=== PATIENT | female | born 1965 | race Caucasian/White ===

== ENCOUNTER 2017-01-10 20:54 | Emergency (ER) | payer OTHER ==
[2017-01-10 21:02] VITALS: BP 135/80; PULSE 111; TEMP 97.9; BMI 34.7
--- NOTE | 2017-01-10 21:10 | PDOC ---
History of Present Illness - General History Source: Patient Exam Limitations: No Limitations - History of Present Illness Initial Comments: 01/10/17 21:38 The patient is a 51 year old female with significant past medical history of asthma, GERD, food allergies, and deafness in the left ear as well as reported history of CVA in 2014 (although neurology note from that admission states that there was no stroke evident on MRI) who presents to the ED with diffuse hives and itchiness prior to arrival. Patient reports she was visit her neighbor who was cooking fish. She states she inhaled fish and subsequently developed diffuse hives and itchiness. She denies eating fish. Patient denies tongue/lip swelling, SOB, or chest tightness. The patient denies fever, chills, cough, diaphoresis, chest pain, and palpitations. The patient denies abdominal pain, nausea, vomiting, and diarrhea. Allergies: epinephrine, pistachio nut, seafood Social History: No alcohol, tobacco, or drug use reported. Past Surgical History: left ear sx x3, hard of hearing/tonsillectomy PCP: None reported <Kalie Morales - Last Filed: 01/10/17 21:38> <Frederic Gallegos - Last Filed: 01/10/17 22:57> - General Chief Complaint: Allergic Reaction Stated Complaint: ALLERGIC REACTION Past History <Kalie Morales - Last Filed: 01/10/17 21:38> - Past Medical History Anemia: Yes Asthma: Yes Cancer: No Cardiac Disorders: Yes CVA: Yes (X2 right sided weakness/numbness) COPD: No CHF: No Dementia: No Diabetes: No GI Disorders: No Disorders: No HTN: No Hypercholesterolemia: Yes Liver Disease: No Suicide Attempt (Hx): No Seizures: No Thyroid Disease: No - Surgical History Abdominal Surgery: No Appendectomy: No Cardiac Surgery: No Cholecystectomy: No Lung Surgery: No Neurologic Surgery: (left ear sx x3, hard of hearing/tonsilectomy) Orthopedic Surgery: No - Immunization History Td Vaccination: Yes Immunization Up to Date: Yes - Psycho/Social/Smoking Cessation Hx Anxiety: No Suicidal Ideation: No Smoking Status: No Smoking History: Never smoked Have you smoked in the past 12 months: No Number of Cigarettes Smoked Daily: 0 Cigars Per Day: 0 Hx Alcohol Use: No Drug/Substance Use Hx: No Substance Use Type: None Hx Substance Use Treatment: No <Frederic Gallegos - Last Filed: 01/10/17 22:57> - Past Medical History Allergies/Adverse Reactions: Allergies Allergy/AdvReac Type Severity Reaction Status Date / Time epinephrine Allergy Verified 01/10/17 20:59 perfume Allergy Verified 01/10/17 20:59 pistachio nut Allergy Verified 01/10/17 20:59 seafood Allergy Uncoded 01/10/17 20:59 Home Medications: Ambulatory Orders NK [No Known Home Medication] 08/12/16 Review of Systems - Review of Systems Able to Perform ROS?: Yes Comments:: 01/10/17 21:38 CONSTITUTIONAL: Absent: fever, no chills, no fatigue EYES: Absent: visual changes ENT: Absent: ear pain, no sore throat CARDIOVASCULAR: Absent: chest pain, no palpitations RESPIRATORY: Absent: cough, no SOB GI: Absent: abdominal pain, no nausea, no vomiting, no constipation, no diarrhea GENITOURINARY: Absent: dysuria, no frequency, no hematuria MUSKULOSKELETAL: Absent: back pain, no arthralgia, no myalgia SKIN: +diffuse hives and itchiness NEURO: Absent: headache <Jose Antonio Moralesta - Last Filed: 01/10/17 21:38> *Physical Exam - Vital Signs Last Vital Signs Temp Pulse Resp BP Pulse Ox 97.9 F 111 H 18 135/80 100 01/10/17 20:59 01/10/17 20:59 01/10/17 20:59 01/10/17 20:59 01/10/17 20:59 - Physical Exam Comments: 01/10/17 21:38 GENERAL: Well-appearing, well-nourished. No apparent distress. HEENT: Normocephalic, atraumatic. PERRL, EOM intact. No airway compromise. No hot potato voice. No tongue swelling. CARDIOVASCULAR: Normal S1, S2. Regular rate and rhythm. PULMONARY: Clear to auscultation bilaterally. No wheezing or stridor. No accessory muscle use. ABDOMEN: Soft, non-distended, non-tender. EXTREMITIES: Normal ROM in all four extremities. No gross deformities. SKIN: Warm, dry. Diffuse hives and erythema throughout the body. NEUROLOGICAL: No focal neurological deficits. <Kalie Morales - Last Filed: 01/10/17 21:38> - Vital Signs Last Vital Signs Temp Pulse Resp BP Pulse Ox 97.9 F 111 H 18 135/80 100 01/10/17 20:59 01/10/17 20:59 01/10/17 20:59 01/10/17 20:59 01/10/17 20:59 <Frederic Gallegos - Last Filed: 01/10/17 22:57> *DC/Admit/Observation/Transfer - Attestations Scribe Attestion: 01/10/17 21:39 Documentation prepared by Kalie Morales, acting as emergency medicine medical director for Frederic Gallegos MD, <Kalie Morales - Last Filed: 01/10/17 21:38> - Discharge Dispostion Admit: No <Frederic Gallegos - Last Filed: 01/10/17 22:57> Diagnosis at time of Disposition: Allergic reaction - Discharge Dispostion Disposition: HOME Condition at time of disposition: Improved
[2017-01-10] MEDS ORDERED: FAMOTIDINE 20 MG/50 ML IVPB 50 ML IVPB ONE ×2 (21:20→21:28)
[2017-01-10] MEDS ORDERED: DEXAMETHASONE SOD PHOSPHATE 10 MG/1 ML VIAL IVPUSH ONE (21:20)
[2017-01-10] MEDS ORDERED: DEXAMETHASONE SOD PHOSPHATE 10 MG/1 ML VIAL ONE (21:28)
[2017-01-10] MEDS ORDERED: ACETAMINOPHEN 325 MG TABLET (FP) PO ONE (22:50)
[2017-01-10] MEDS ORDERED: ACETAMINOPHEN 325 MG TABLET (FP) ONE (22:53)
== END 2017-01-10 23:12 | disposition home or self-care (01) ==
LOC: JER 20:54
PROC: 3E033GC Introduction of Other Therapeutic Substance into Peripheral Vein, Percutaneous Approach (ICD-10-PCS; principal; 2017-01-10)
PROC: 3E0333Z Introduction of Anti-inflammatory into Peripheral Vein, Percutaneous Approach (ICD-10-PCS; 2017-01-10)
PROC: 3E033GC Introduction of Other Therapeutic Substance into Peripheral Vein, Percutaneous Approach (ICD-10-PCS; 2017-01-10)
DX: L50.0 Allergic urticaria (principal); T78.49XA Other allergy, initial encounter; J45.909 Unspecified asthma, uncomplicated; K21.9 Gastro-esophageal reflux disease without esophagitis; Z91.018 Allergy to other foods
CPT/HCPCS: 96365; 96374; 96375; 99282-25

== ENCOUNTER 2017-02-19 21:44 | Emergency (ER) | payer OTHER ==
[2017-02-19 21:53] VITALS: BP 124/71; PULSE 108; TEMP 98; BMI 34.3
--- NOTE | 2017-02-19 23:07 | PDOC ---
History of Present Illness - General Chief Complaint: Pain Stated Complaint: CHEST PAIN/COUGH Time Seen by Provider: 02/19/17 22:00 History Source: Patient Exam Limitations: No Limitations - History of Present Illness Initial Comments: 02/19/17 23:03 51yo Female patient presents to ED c/o left breast pain x 3 days. Patient states while performing self breast check, she felt lumps at 4pm position and 9pm going clockwise. She reports no history of breast CA or family hx of CA. Patient denies nipple or breast discharge. + Cough. Denies all other complaints at this time. PCP--[facility]. Timing/Duration: other (3 days) Severity: moderate Modifying Factors: worse with: cold therapy, eating, immobilization, medication , movement, rest, other Associated Symptoms: denies: denies symptoms, chest pain, cough, diaphoresis, fever/chills, headaches, loss of appetite, malaise, nausea/vomiting, rash, seizure, shortness of breath, syncope, weakness, other Aspirin Received prior to arrival: No: no aspirin today, unknown, 81 mg x 1, 81 mg x 2, 81 mg x 3, 81 mg x 4, 325 mg x 1, provided at home, provided by EMS, provided by ED [facility] Contraindications(Core Measure): No: Allergy, Other, Active Blding w/i 24 hrs., Plavix, Receiving Warfarin Beta Gustavo Contraindications(Core Measure): No: Not Prescribed, Allergy, Bradycardia (HR <60bpm), Advanced Heart Block, Pacemaker, Other Past History - Travel Traveled outside of the country in the last 30 days: No Close contact w/someone who was outside of country & ill: No - Past Medical History Allergies/Adverse Reactions: Allergies Allergy/AdvReac Type Severity Reaction Status Date / Time epinephrine Allergy Verified 02/19/17 21:53 perfume Allergy Verified 02/19/17 21:53 pistachio nut Allergy Verified 02/19/17 21:53 seafood Allergy Uncoded 02/19/17 21:53 Home Medications: Ambulatory Orders Diphenhydramine [Benadryl -] 50 mg NR QID PRN #20 capsule 01/10/17 Famotidine [Pepcid -] 40 mg PO DAILY #7 tablet 01/10/17 Ibuprofen 600 mg PO Q6H PRN #20 tablet 02/20/17 Oxycodone HCl/Acetaminophen [Endocet 5-325 Tablet] 1 each PO Q6H PRN #20 tablet MDD 4 tabs 02/20/17 Anemia: Yes Asthma: Yes Cancer: No Cardiac Disorders: Yes CVA: Yes (X2 right sided weakness/numbness) COPD: No CHF: No Dementia: No Diabetes: No GI Disorders: No Disorders: No HTN: No Hypercholesterolemia: Yes Liver Disease: No Suicide Attempt (Hx): No Seizures: No Thyroid Disease: No - Surgical History Abdominal Surgery: No Appendectomy: No Cardiac Surgery: No Cholecystectomy: No Lung Surgery: No Neurologic Surgery: (left ear sx x3, hard of hearing/tonsilectomy) Orthopedic Surgery: No - Immunization History Td Vaccination: Yes Immunization Up to Date: Yes - Psycho/Social/Smoking Cessation Hx Anxiety: No Suicidal Ideation: No Smoking Status: No Smoking History: Never smoked Have you smoked in the past 12 months: No Number of Cigarettes Smoked Daily: 0 Cigars Per Day: 0 Hx Alcohol Use: No Drug/Substance Use Hx: No Substance Use Type: None Hx Substance Use Treatment: No Review of Systems - Review of Systems Able to Perform ROS?: Yes Is the patient limited [place] proficient: No Constitutional: No: Chills, Fever, Malaise Respiratory: Yes: Cough. No: Orthopnea, Shortness of Breath, Stridor, Wheezing Cardiac (ROS): Yes: Chest Pain. No: Edema, Lightheadedness, Palpitations, Syncope, Chest Tightness ABD/GI: No: Constipated, Diarrhea, Nausea, Poor Appetite, Poor Fluid Intake, Vomiting : No: Dysuria, Discharge, Flank Pain, Hematuria, Urgency Musculoskeletal: No: Back Pain, Muscle Weakness, Neck Pain Integumentary: Yes: Lumps, Other (Lt Breast with lumps x 2). No: Dryness, Erythema, Lesions, Pruritus, Rash, Sweating Neurological: No: Headache, Seizure, Dizziness All Other Systems: Reviewed and Negative *Physical Exam - Vital Signs Last Vital Signs Temp Pulse Resp BP Pulse Ox 98 F 108 H 20 124/71 99 02/19/17 21:50 02/19/17 21:50 02/19/17 21:50 02/19/17 21:50 02/19/17 21:50 - Physical Exam General Appearance: Yes: Nourished, Appropriately Dressed, Mild Distress. No: Apparent Distress, Moderate Distress, Severe Distress Neck: positive: Trachea midline, Supple. negative: Stridor, Lymphadenopathy (R) , Lymphadenopathy (L) Respiratory/Chest: positive: Lungs Clear, Normal Breath Sounds. negative: Respiratory Distress, Accessory Muscle Use, Labored Respiration, Rapid RR Cardiovascular: positive: Regular Rhythm, Regular Rate. negative: Edema, JVD, Murmur Musculoskeletal: positive: Normal Inspection. negative: CVA Tenderness, Vertebral Tenderness Extremity: positive: Normal Capillary Refill, Normal Inspection, Normal Range of Motion. negative: Pedal Edema, Swelling, Calf Tenderness, Erythema, Inflammation Integumentary: positive: Normal Color, Dry, Warm, Other (2 Lumps palpated in left breast one at 4'o clock & 9'o clock position. No inflammation, erythema, nipple discharge or drainage noted.) Neurologic: positive: finance controller II-XII NML intact, Fully Oriented, Alert, Normal Mood/ Affect, Normal Response, Motor Strength 5/5 *DC/Admit/Observation/Transfer Diagnosis at time of Disposition: Breast pain, left - Discharge Dispostion Disposition: HOME Condition at time of disposition: Stable Admit: No - Prescriptions Prescriptions: Oxycodone HCl/Acetaminophen [Endocet 5-325 Tablet] 1 each PO Q6H PRN #20 tablet MDD 4 tabs PRN Reason: Severe Pain Ibuprofen 600 mg PO Q6H PRN #20 tablet PRN Reason: Mild Pain - Patient Instructions Printed Discharge Instructions: DI for Breast Pain (Mastalgia) Additional Instructions: FOLLOW UP WITH YOUR PRIMARY CARE PROVIDER THIS WEEK. CALL TO SCHEDULE APPOINTMENT. YOU NEED TO HAVE AN ULTRASOUND OF YOUR BREAST COMPLETED SOON POSSIBLE. RETURN IF ANY CONCERNS FOR FURTHER EVALUATION. Print Language: LATVIAN
[2017-02-20] MEDS ORDERED: OXYCODONE/APAP 5/325MG COMBO TABLET PO ONE (00:20)
[2017-02-20] MEDS ORDERED: IBUPROFEN 600 MG TABLET (FP) PO ONE ×2 (00:20→00:29)
[2017-02-20] MEDS ORDERED: OXYCODONE/APAP 5/325MG COMBO TABLET ONE (00:28)
== END 2017-02-20 00:40 | disposition home or self-care (01) ==
LOC: JER 21:44
DX: N64.4 Mastodynia (principal); J45.909 Unspecified asthma, uncomplicated; I51.9 Heart disease, unspecified; E78.00 Pure hypercholesterolemia, unspecified; I69.398 Other sequelae of cerebral infarction
CPT/HCPCS: 71020-TC; 99281-25

== ENCOUNTER 2017-05-16 07:18 | Emergency (ER) | payer OTHER ==
[2017-05-16] MEDS ORDERED: RANITIDINE HCL 150 MG TABLET (FP) ONE (07:34)
[2017-05-16] MEDS ORDERED: methylPREDNISolone NA SUCC 125 MG/2 ML VIAL ONE (07:34)
[2017-05-16] MEDS ORDERED: methylPREDNISolone NA SUCC 125 MG/2 ML VIAL IVPB ONE (07:35)
[2017-05-16] MEDS ORDERED: RANITIDINE HCL 150 MG TABLET (FP) PO ONE (07:36)
[2017-05-16 07:56] VITALS: TEMP 98.4; BMI 35.3
[2017-05-16] MEDS ORDERED: MAG HYDROX/AL HYDROX/SIMETH 30 ML UNIT-DOSE CUP PO ONE (08:28)
--- NOTE | 2017-05-16 08:28 | PDOC ---
History of Present Illness - General Chief Complaint: Allergic Reaction Stated Complaint: ALLERGIC REACTION Time Seen by Provider: 05/16/17 07:30 History Source: Patient - History of Present Illness Timing/Duration: reports: just prior to arrival Location: reports: generalized Respiratory Risk Factors: reports: soaps Past History - Past Medical History Allergies/Adverse Reactions: Allergies Allergy/AdvReac Type Severity Reaction Status Date / Time epinephrine Allergy Verified 05/16/17 07:38 perfume Allergy Verified 05/16/17 07:38 pistachio nut Allergy Verified 05/16/17 07:38 seafood Allergy Uncoded 05/16/17 07:38 Home Medications: Ambulatory Orders Diphenhydramine [Benadryl -] 25 mg PO DAILY PRN 02/20/17 Prednisone 20 mg PO DAILY 02/20/17 Albuterol Sulfate Inhaler - [Ventolin Hfa Inhaler -] 1 - 2 inh PO Q4H PRN Diphenhydramine HCl [Benadryl -] 25 mg PO Q6H #28 capsule 05/16/17 Famotidine [Pepcid] 20 mg PO DAILY #7 tablet 05/16/17 Prednisone [Deltasone -] 40 mg PO DAILY #8 tablet 05/16/17 Anemia: Yes Asthma: Yes Cancer: No Cardiac Disorders: Yes CVA: Yes (X2 right sided weakness/numbness) COPD: No CHF: No Dementia: No Diabetes: No GI Disorders: No Disorders: No HTN: No Hypercholesterolemia: Yes Liver Disease: No Suicide Attempt (Hx): No Seizures: No Thyroid Disease: No - Surgical History Abdominal Surgery: No Appendectomy: No Cardiac Surgery: No Cholecystectomy: No Lung Surgery: No Neurologic Surgery: (left ear sx x3, hard of hearing/tonsilectomy) Orthopedic Surgery: No - Immunization History Td Vaccination: Yes Immunization Up to Date: Yes - Psycho/Social/Smoking Cessation Hx Anxiety: No Suicidal Ideation: No Smoking Status: No Smoking History: Never smoked Have you smoked in the past 12 months: No Number of Cigarettes Smoked Daily: 0 Cigars Per Day: 0 Information on smoking cessation initiated: No Hx Alcohol Use: No Drug/Substance Use Hx: No Substance Use Type: None Hx Substance Use Treatment: No Review of Systems - Review of Systems Constitutional: No: Fever Respiratory: Yes: Shortness of Breath. No: Stridor Cardiac (ROS): No: Chest Pain Integumentary: Yes: Pruritus, Rash Neurological: No: Dizziness *Physical Exam - Vital Signs Last Vital Signs Temp Pulse Resp BP Pulse Ox 98.4 F 121 H 18 129/63 99 05/16/17 07:33 05/16/17 07:33 05/16/17 07:33 05/16/17 07:33 05/16/17 07:33 - Physical Exam General Appearance: Yes: Appropriately Dressed, Mild Distress HEENT: positive: Normal Voice, Other (no swelling to tongue or orpharynx) Neck: positive: Supple. negative: Stridor Respiratory/Chest: positive: Lungs Clear, Normal Breath Sounds. negative: Respiratory Distress Cardiovascular: positive: S1, S2, Tachycardia Integumentary: positive: Dry, Warm, Rash (erythematous, scaly maculopapular rash to face/trunk and extremities) Neurologic: positive: Fully Oriented, Alert, Normal Mood/Affect Heart Score/ECG Review - ECG Intrepretation Comment:: 05/16/17 09:04 Sinus tachycardia to 102 BPM 05/16/17 09:05 ED Treatment Course - Medications Given in the ED: ED Medications Discontinued Medications Generic Name Dose Route Start Last Admin Trade Name Freq PRN Reason Stop Dose Admin Diphenhydramine HCl 50 mg 05/16/17 07:35 05/16/17 07:45 Benadryl Injection - IVPUSH 05/16/17 07:36 50 mg ONCE ONE Administration Methylprednisolone Sodium Succinate 125 mg 05/16/17 07:35 05/16/17 07:45 Solu-Medrol - IVPB 05/16/17 07:36 125 mg ONCE ONE Administration Ranitidine HCl 150 mg 05/16/17 07:36 05/16/17 07:45 Zantac - PO 05/16/17 07:37 150 mg ONCE ONE Administration Medical Decision Making - Medical Decision Making 05/16/17 08:21 51 yo F, h/o asthma, multiple allergies (meds, food, others), no h/o anaphylaxis , here with sudden onset diffuse pruritic rash with itching to throat and possible shortness of breath that started almost immediately after using her sister's Aveeno soap to bathe this am as per patient. Reports that she has never used that soap in the past. No voice changes, tongue swelling, stridor or wheezing see exam Allergic rxn 2/2 soap Mostly limited to skin but some throat itching Tachy at triage w/ clear chest/lungs -Benadryl/steroids/H2 katy -reassess after period of obs 05/16/17 08:46 Pt c/o "heartburn" at this time. Remains tachy. Will get EKG and manage sxs 05/16/17 09:03 Pt now wheezing on re-eval. Sating 98% on RA. Nebs in progress 05/16/17 09:04 05/16/17 10:05 Pt reports feeling significantly better at this time and appears more comfortable w/ clear chest/lungs. Will continue to obs 05/16/17 11:41 At this time. Pt well appearing w/ almost resolution of rash. Itching has since sig improved and chest/lungs remains clear. Tachy to 106 w/ 96 % sats on recent vitals. Will discharge w/ appropriate meds (of note, pt allergic to epipen per pt) and strict return precautions. Pt instructed to refrain from using aveeno in the future 05/16/17 11:45 05/16/17 11:46 05/16/17 11:47 *DC/Admit/Observation/Transfer Diagnosis at time of Disposition: Acute allergic reaction Qualifiers: Encounter type: initial encounter Qualified Code(s): T78.40XA - Allergy, unspecified, initial encounter - Discharge Dispostion Disposition: HOME Condition at time of disposition: Improved - Prescriptions Prescriptions: Diphenhydramine HCl [Benadryl -] 25 mg PO Q6H #28 capsule Prednisone [Deltasone -] 40 mg PO DAILY #8 tablet Famotidine [Pepcid] 20 mg PO DAILY #7 tablet - Patient Instructions Printed Discharge Instructions: DI for General Allergic Reactions Additional Instructions: Refrain from using aveeno products in the future Taker medications as directed Please return to ED for any worsening of your symptoms Follow uo with PMD otherwise
[2017-05-16] MEDS ORDERED: MAG HYDROX/AL HYDROX/SIMETH 30 ML UNIT-DOSE CUP ONE (08:29)
[2017-05-16] MEDS ORDERED: LORazepam 0.5 MG TABLET ONE (08:59)
[2017-05-16] MEDS ORDERED: ALBUTEROL SO4 0.083% IH SOL 2.5 MG/3 ML VIAL.NEB. NEB ONE (09:01)
[2017-05-16] MEDS ORDERED: ALBUTEROL SO4 2.5/IPRATROPIUM 0.5 INH SOL 3 ML VIAL.NEB. NEB ONE (09:04)
[2017-05-16] MEDS: ALBUTEROL SO4 2.5/IPRATROPIUM 0.5 INH SOL 3 ML VIAL.NEB. NEB SCH ×3 (09:07→10:07)
[2017-05-16] MEDS ORDERED: LORazepam 1 MG TABLET PO ONE (09:08)
[2017-05-16 09:23] VITALS: BP 124/74
--- NOTE | 2017-05-16 10:21 | EKG ---
Test Reason : Blood Pressure : / mmHG Vent. Rate : 102 BPM Atrial Rate : 102 BPM P-R Int : 142 ms QRS Dur : 072 ms QT Int : 322 ms P-R-T Axes : 053 031 026 degrees QTc Int : 419 ms SINUS TACHYCARDIA OTHERWISE NORMAL ECG WHEN COMPARED WITH ECG OF 17-MAY-2016 03:54, NO SIGNIFICANT CHANGE WAS FOUND Confirmed by BISI BELLO MD ([id number]) on 05/16/2017 10:21:20 AM Referred By: Confirmed By:BISI BELLO MD
[2017-05-16 11:48] VITALS: PULSE 108
== END 2017-05-16 11:51 | disposition home or self-care (01) ==
LOC: JER 07:18
PROC: 3E0F7GC Introduction of Other Therapeutic Substance into Respiratory Tract, Via Natural or Artificial Opening (ICD-10-PCS; principal; 2017-05-16)
PROC: 3E0333Z Introduction of Anti-inflammatory into Peripheral Vein, Percutaneous Approach (ICD-10-PCS; 2017-05-16)
PROC: 3E033GC Introduction of Other Therapeutic Substance into Peripheral Vein, Percutaneous Approach (ICD-10-PCS; 2017-05-16)
DX: T55.0X1A Toxic effect of soaps, accidental (unintentional), initial encounter (principal); L23.5 Allergic contact dermatitis due to other chemical products; Y92.038 Other place in apartment as the place of occurrence of the external cause
CPT/HCPCS: 93005; 93010; 94640; 96374; 96375; 99282-25

== ENCOUNTER 2017-05-16 17:35 | Emergency (ER) | payer OTHER ==
[2017-05-16 17:40] VITALS: TEMP 98.2; BMI 34.7
--- NOTE | 2017-05-16 18:16 | PDOC ---
History of Present Illness - History of Present Illness Beta Gustavo Contraindications (Core Measure): No: Not Prescribed, Allergy, Bradycardia (HR <60bpm), Advanced Heart Block, Pacemaker, Other - General Chief Complaint: Allergic Reaction Stated Complaint: SHORTNESS OF BREATH Time Seen by Provider: 05/16/17 17:54 - History of Present Illness Initial Comments: 05/16/17 18:43 The patient is a 51 year old female, with a significant past medical history of asthma, and multiple food/drug allergies, who presents to the emergency department with an allergic reaction following Dina soap use. Patient returns to the ED following discharge this AM for allergic reaction. She reports widespread pruitic, erythematous rash over trunk, chest, and BL lower and upper extremities this morning after taking a shower. Also complains of difficulty breathing, flushing of the face, and swollen tongue. Pt. recieved solumedrol, benadryl, famotidine, albuterol, and ativan this AM during inital ED course. She was discharged home with benadryl, oral prednisone, and H2 gustavo with instructions to return if symptoms recurred, or if she had difficulty breathing. She states that 2-3 hours ago she developed recurrent chest tightness , numbness/tingling in upper right and lower left extremity, rapid breathing, and SOB at rest. She does not have an wrapper caser and states that she is allergic to epinephrine after experiencing "paralysis and sensation of head exploding" following epinephrine administration. The patient denies headache, dizziness, fever, chills, nausea, vomit, diarrhea and constipation. Denies dysuria, frequency, urgency and hematuria. 05/16/17 18:55 (Mata Castillo) Past History - Past Medical History Anemia: Yes Asthma: Yes Cancer: No Cardiac Disorders: Yes CVA: Yes (X2 right sided weakness/numbness) COPD: No CHF: No Dementia: No Diabetes: No GI Disorders: No Disorders: No HTN: No Hypercholesterolemia: Yes Liver Disease: No Suicide Attempt (Hx): No Seizures: No Thyroid Disease: No - Surgical History Abdominal Surgery: No Appendectomy: No Cardiac Surgery: No Cholecystectomy: No Lung Surgery: No Neurologic Surgery: (left ear sx x3, hard of hearing/tonsilectomy) Orthopedic Surgery: No - Immunization History Td Vaccination: Yes Immunization Up to Date: Yes - Psycho/Social/Smoking Cessation Hx Anxiety: No Suicidal Ideation: No Smoking Status: No Smoking History: Never smoked Have you smoked in the past 12 months: No Number of Cigarettes Smoked Daily: 0 Cigars Per Day: 0 Information on smoking cessation initiated: No Hx Alcohol Use: No Drug/Substance Use Hx: No Substance Use Type: None Hx Substance Use Treatment: No - Past Medical History Allergies/Adverse Reactions: Allergies Allergy/AdvReac Type Severity Reaction Status Date / Time epinephrine Allergy Verified 05/16/17 17:36 perfume Allergy Verified 05/16/17 17:36 pistachio nut Allergy Verified 05/16/17 17:36 seafood Allergy Uncoded 05/16/17 17:36 Home Medications: Ambulatory Orders Diphenhydramine [Benadryl -] 25 mg PO DAILY PRN 02/20/17 Prednisone 20 mg PO DAILY 02/20/17 Albuterol Sulfate Inhaler - [Ventolin Hfa Inhaler -] 1 - 2 inh PO Q4H PRN Diphenhydramine HCl [Benadryl -] 25 mg PO Q6H #28 capsule 05/16/17 Famotidine [Pepcid] 20 mg PO DAILY #7 tablet 05/16/17 Prednisone [Deltasone -] 40 mg PO DAILY #8 tablet 05/16/17 Cardiac Specific PMH - Complaint Specific PMHX Pacemaker: No Review of Systems - Review of Systems Comments:: 05/16/17 18:56 GENERAL/CONSTITUTIONAL: No fever or chills. No weakness. HEAD, EYES, EARS, NOSE AND THROAT: No change in vision. No ear pain or discharge. No sore throat.No eye involvement of rash. CARDIOVASCULAR: No chest pain or shortness of breath RESPIRATORY: +SOB, No cough, wheezing, or hemoptysis. GASTROINTESTINAL: No nausea, vomiting, diarrhea or constipation. GENITOURINARY: No dysuria, frequency, or change in urination. MUSCULOSKELETAL: No joint or muscle swelling or pain. No neck or back pain. SKIN: +widespread rash NEUROLOGIC:+ numbness/tingling in UE/LE. No headache, vertigo, loss of consciousness, or change in strength/sensation. ENDOCRINE: No increased thirst. No abnormal weight change HEMATOLOGIC/LYMPHATIC: No anemia, easy bleeding, or history of blood clots. ALLERGIC/IMMUNOLOGIC: No hives or skin allergy. (Mata Castillo) *Physical Exam - Vital Signs Last Vital Signs Temp Pulse Resp BP Pulse Ox 98.2 F 110 H 20 120/59 98 05/16/17 17:37 05/16/17 20:37 05/16/17 20:37 05/16/17 20:37 05/16/17 17:37 - Physical Exam Comments: 05/16/17 18:58 GENERAL: Awake, alert, and fully oriented, in no acute distress HEAD: No signs of trauma, normocephalic, atraumatic EYES: PERRLA, EOMI, sclera anicteric, conjunctiva clear ENT: Auricles normal inspection, hearing grossly normal, nares patent, oropharynx clear without. exudates. Moist mucosa with absent swelling, erythema of buccal mucosa or tongue. NECK: Normal ROM, supple, no lymphadenopathy, JVD, or masses LUNGS: No distress, speaks full sentences, clear to auscultation bilaterally. Absent stridor, or wheezing. HEART: Regular rate and rhythm, normal S1 and S2, no murmurs, rubs or gallops, peripheral pulses normal and equal bilaterally. ABDOMEN: Soft, nontender, normoactive bowel sounds. No guarding, no rebound. No masses EXTREMITIES: Normal inspection, Normal range of motion, no edema. No clubbing or cyanosis. NEUROLOGICAL: Cranial nerves II through XII grossly intact. Normal speech, normal gait, no focal sensorimotor deficits SKIN: + widespread erythematous, macular, blanching rash over distal extremities , trunk, chest, and neck. Warm, Dry, normal turgor. (Mata Castillo) - ADDITIONAL ORDERS Additional order review: Laboratory Results 05/16/17 05/16/17 18:56 18:56 Creatine Kinase 332 H D CK-MB (CK-2) 6.836 H Troponin I < 0.02 < 0.02 - Medications Given in the ED: ED Medications Discontinued Medications Generic Name Dose Route Start Last Admin Trade Name Freq PRN Reason Stop Dose Admin Al Hydroxide/Mg Hydroxide 30 ml 05/16/17 18:37 05/16/17 18:55 Mylanta Suspension - PO 05/16/17 18:38 Not Given ONCE ONE Al Hydroxide/Mg Hydroxide 30 ml 05/16/17 18:38 05/16/17 18:54 Mylanta Oral Suspension - PO 05/16/17 18:39 30 ml ONCE ONE Administration Medical Decision Making - Medical Decision Making Pt. presents to ED with diffuse maculopapular rash following exposure to Dina soap and initial ED visit this AM. She was advised to return to ED if experiencing SOB, chest tightness.Denies any oral/facial involvement of allergic reaction or difficulty swallowing. Pt. was D/C'd this AM with home regimen of diphehydramine, prednisone, and famotidine with minimal resolution of rash. During intial AM hospital stay she reports Ativan was effective at alleviating tachycardia, tachypnea, and chest pressure. 05/16/17 19:00 05/16/17 19:05 (Mata Castillo) *DC/Admit/Observation/Transfer Diagnosis at time of Disposition: Epigastric discomfort - Discharge Dispostion Disposition: HOME Condition at time of disposition: Stable - Referrals Referrals: [facility] [Provider Group] - Patient Instructions Printed Discharge Instructions: DI for General Allergic Reactions Additional Instructions: You were evaluated in the Emergency Department on 16 May 2017 for an allergic reaction to your use of [place] soap. At the time of discharge your symptoms were resolved. Please return to the Emergency Department
[2017-05-16] MEDS ORDERED: MAG HYDROX/AL HYDROX/SIMETH 355 ML ORAL.SUSP PO ONE (18:37)
[2017-05-16] MEDS ORDERED: MAG HYDROX/AL HYDROX/SIMETH 30 ML UNIT-DOSE CUP PO ONE (18:38)
[2017-05-16] MEDS ORDERED: MAG HYDROX/AL HYDROX/SIMETH 30 ML UNIT-DOSE CUP ONE (18:44)
[2017-05-16 19:27] LABS: TROPONIN I < 0.02 ng/ml (0.00-0.05)
--- NOTE | 2017-05-16 19:37 | PDOC ---
*Physical Exam - Vital Signs Last Vital Signs Temp Pulse Resp BP Pulse Ox 98.2 F 126 H 18 119/87 98 05/16/17 17:37 05/16/17 17:37 05/16/17 17:37 05/16/17 17:37 05/16/17 17:37 ED Treatment Course - Medications Given in the ED: ED Medications Discontinued Medications Generic Name Dose Route Start Last Admin Trade Name Dara PRN Reason Stop Dose Admin Al Hydroxide/Mg Hydroxide 30 ml 05/16/17 18:37 05/16/17 18:55 Mylanta Suspension - PO 05/16/17 18:38 Not Given ONCE ONE Al Hydroxide/Mg Hydroxide 30 ml 05/16/17 18:38 05/16/17 18:54 Mylanta Oral Suspension - PO 05/16/17 18:39 30 ml ONCE ONE Administration *DC/Admit/Observation/Transfer Diagnosis at time of Disposition: Epigastric discomfort Allergic disorder Qualifiers: Encounter type: subsequent encounter Qualified Code(s): T78.40XD - Allergy, unspecified, subsequent encounter - Discharge Dispostion Disposition: HOME Condition at time of disposition: Improved Admit: No - Referrals Referrals: [facility] [Provider Group] - Patient Instructions Printed Discharge Instructions: DI for General Allergic Reactions Additional Instructions: You were evaluated in the Emergency Department on 16 May 2017 for an allergic reaction to your use of Dina soap. At the time of discharge your symptoms were resolved. Please return to the Emergency Department if you feel any shortness of breath, lightheadedness, chest pain or fainting. 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
[2017-05-16 20:38] VITALS: BP 120/59; PULSE 110
--- NOTE | 2017-05-17 14:11 | EKG ---
Test Reason : Blood Pressure : / mmHG Vent. Rate : 118 BPM Atrial Rate : 118 BPM P-R Int : 146 ms QRS Dur : 072 ms QT Int : 322 ms P-R-T Axes : 051 045 045 degrees QTc Int : 451 ms SINUS TACHYCARDIA INTRA ATRIAL CONDCTION ABNORMALITY WHEN COMPARED WITH ECG OF 16-MAY-2017 08:54, NO SIGNIFICANT CHANGE WAS FOUND Confirmed by MARIO SALAS MD ([id number]) on 05/17/2017 2:10:53 PM Referred By: Confirmed By:MARIO SALAS MD
== END 2017-05-16 20:54 | disposition home or self-care (01) ==
LOC: JER 17:35
DX: T55.0X1A Toxic effect of soaps, accidental (unintentional), initial encounter (principal); L23.5 Allergic contact dermatitis due to other chemical products; Y92.89 Other specified places as the place of occurrence of the external cause
CPT/HCPCS: 36415; 82550; 82553; 84484; 93005; 93010; 99283-25

== ENCOUNTER 2017-07-06 16:18 | Emergency (ER) | payer OTHER ==
[2017-07-06 16:23] VITALS: BMI 33.3
[2017-07-06] MEDS ORDERED: methylPREDNISolone NA SUCC 125 MG/2 ML VIAL IVPB ONE (16:39)
[2017-07-06] MEDS ORDERED: methylPREDNISolone NA SUCC 125 MG/2 ML VIAL ONE (16:41)
[2017-07-06] MEDS ORDERED: FAMOTIDINE 20 MG/50 ML IVPB 50 ML IVPB ONE ×2 (16:44→16:46)
--- NOTE | 2017-07-06 17:12 | PDOC ---
History of Present Illness - General Chief Complaint: Rash Stated Complaint: ALLERGIC REACTION Time Seen by Provider: 07/06/17 16:35 History Source: Patient Exam Limitations: No Limitations - History of Present Illness Initial Comments: 07/06/17 16:59 Patient is a 51-year-old female, patient with history of asthma, multiple food and drug allergies including epinephrine. Patient states she was cleaning her room, only dusting and started to have generalized itching receive patient with a rash head to toe, sandpaperlike. Patient denies any respiratory difficulty. Denies swollen tongue. Patient denies any dysphagia. The patient denies headache, dizziness, fever, chills, nausea, vomit. Timing/Duration: 1/2 hour Severity: severe Associated Symptoms: reports: rash Past History - Past Medical History Allergies/Adverse Reactions: Allergies Allergy/AdvReac Type Severity Reaction Status Date / Time epinephrine Allergy Verified 07/06/17 16:24 perfume Allergy Verified 07/06/17 16:24 pistachio nut Allergy Verified 07/06/17 16:24 seafood Allergy Uncoded 07/06/17 16:24 Home Medications: Ambulatory Orders Diphenhydramine [Benadryl -] 25 mg PO DAILY PRN 02/20/17 Albuterol Sulfate Inhaler - [Ventolin Hfa Inhaler -] 1 - 2 inh PO Q4H PRN Anemia: Yes Asthma: Yes Cancer: No Cardiac Disorders: Yes CVA: Yes (X2 right sided weakness/numbness) COPD: No CHF: No Dementia: No Diabetes: No GI Disorders: No Disorders: No HTN: No Hypercholesterolemia: Yes Liver Disease: No Suicide Attempt (Hx): No Seizures: No Thyroid Disease: No - Surgical History Abdominal Surgery: No Appendectomy: No Cardiac Surgery: No Cholecystectomy: No Lung Surgery: No Neurologic Surgery: (left ear sx x3, hard of hearing/tonsilectomy) Orthopedic Surgery: No - Immunization History Td Vaccination: Yes Immunization Up to Date: Yes - Psycho/Social/Smoking Cessation Hx Anxiety: No Suicidal Ideation: No Smoking Status: No Smoking History: Never smoked Have you smoked in the past 12 months: No Number of Cigarettes Smoked Daily: 0 Cigars Per Day: 0 Hx Alcohol Use: No Drug/Substance Use Hx: No Substance Use Type: None Hx Substance Use Treatment: No Review of Systems - Review of Systems Constitutional: No: Symptoms Reported HEENTM: No: Symptoms Reported Respiratory: No: Cough, Orthopnea, Shortness of Breath, SOB with Exertion, SOB at Rest, Stridor, Wheezing, Productive cough, Hemoptysis Cardiac (ROS): No: Symptoms Reported, Chest Pain, Edema, Irregular Heart Rate, Lightheadedness, Palpitations, Chest Tightness ABD/GI: No: Symptoms Reported : No: Symptoms Reported Musculoskeletal: No: Symptoms Reported Integumentary: No: Symptoms Reported Neurological: No: Symptoms reported Hematologic/Lymphatic: No: Symptoms Reported All Other Systems: Reviewed and Negative *Physical Exam - Vital Signs Last Vital Signs Temp Pulse Resp BP Pulse Ox 98.2 F 118 H 20 141/82 97 07/06/17 16:20 07/06/17 16:20 07/06/17 16:20 07/06/17 16:20 07/06/17 16:20 - Physical Exam General Appearance: Yes: Appropriately Dressed. No: Apparent Distress HEENT: positive: HALEY, Normal ENT Inspection, Normal Voice, Symmetrical, TMs Normal, Pharynx Normal. negative: Rhinorrhea, Sinus Tenderness, Orbits, TM Bulging, TM Dull, TM Erythema, Excessive drooling, Thrush Neck: positive: Trachea midline. negative: Tender, Lymphadenopathy (R), Lymphadenopathy (L), Rigidity, Tender lateral, Tender midline Respiratory/Chest: positive: Lungs Clear, Normal Breath Sounds. negative: Respiratory Distress, Accessory Muscle Use, Labored Respiration, Rapid RR, Decreased Breath Sounds, Crackles, Rales, Rhonchi, Stridor, Wheezing Cardiovascular: positive: Regular Rhythm, Regular Rate Gastrointestinal/Abdominal: positive: Normal Bowel Sounds, Soft. negative: Tender Lymphatic: negative: Adenopathy Integumentary: positive: Rash. negative: Erythema, Hives, Swelling, Ecchymosis , Bruising Neurologic: positive: Normal Response, Motor Strength 5/5 ED Treatment Course - Medications Given in the ED: ED Medications Discontinued Medications Generic Name Dose Route Start Last Admin Trade Name Freq PRN Reason Stop Dose Admin Diphenhydramine HCl 50 mg 07/06/17 16:44 07/06/17 16:53 Benadryl Injection - IVPB 07/06/17 16:45 50 mg ONCE ONE Administration Methylprednisolone Sodium Succinate 125 mg 07/06/17 16:39 07/06/17 16:44 Solu-Medrol - IVPB 07/06/17 16:40 125 mg ONCE ONE Administration Medical Decision Making - Medical Decision Making 07/06/17 17:14 A/P: Patient here for allergic reaction, mostly limited to skin. There is no airway compromise. Immediately upon arrival #20 placed to the left before meals , Solu-Medrol 125, Pepcid 20 and Benadryl 50 mg IV given, will reevaluate. Patient is monitored for change in airway status. 07/06/17 18:04 Patient states that she has decreased pruritus, rash is significantly decreased , will continue to monitor 07/06/17 19:24 Patient generalized rash significantly improved however patient still with pruritus. Will give Claritin 10 mg by mouth and monitor. Patient lungs clear, O2 sats 100%, no stridor or wheezing. I am signing this patient out to my colleague: KAYLYNN Lee In brief, this patient is being seen in the ED for a chief complaint of: Allergic reaction I have completed the initial assessment interview note and have ordered: Solumedrol, Pepcid, Benadryl, Claritin Plan for disposition is as follows: We'll monitor, DC pending decreased pruritus
[2017-07-06] MEDS ORDERED: LORATADINE 10 MG TABLET PO ONE (19:23)
[2017-07-06] MEDS ORDERED: LORATADINE 10 MG TABLET ONE (19:29)
--- NOTE | 2017-07-06 19:59 | PDOC ---
*Physical Exam - Vital Signs Last Vital Signs Temp Pulse Resp BP Pulse Ox 98.2 F 118 H 20 141/82 97 07/06/17 16:20 07/06/17 16:20 07/06/17 16:20 07/06/17 16:20 07/06/17 16:20 - Physical Exam General Appearance: Yes: Appropriately Dressed. No: Apparent Distress HEENT: positive: Normal Voice Neck: positive: Supple Respiratory/Chest: positive: Lungs Clear, Normal Breath Sounds. negative: Respiratory Distress, Wheezing Cardiovascular: positive: Regular Rate, S1, S2 Gastrointestinal/Abdominal: positive: Soft. negative: Tender Integumentary: positive: Dry, Warm, Hives (to face, neck, trunk and extremities) Neurologic: positive: Fully Oriented, Alert, Normal Mood/Affect ED Treatment Course - Medications Given in the ED: ED Medications Discontinued Medications Generic Name Dose Route Start Last Admin Trade Name Freq PRN Reason Stop Dose Admin Diphenhydramine HCl 50 mg 07/06/17 16:44 07/06/17 16:53 Benadryl Injection - IVPB 07/06/17 16:45 50 mg ONCE ONE Administration Famotidine/Sodium Chloride 50 mls @ 100 mls/hr 07/06/17 16:44 07/06/17 17:12 Pepcid 20 Mg Premixed Ivpb - IVPB 07/06/17 17:13 100 mls/hr ONCE ONE Administration Loratadine 10 mg 07/06/17 19:23 07/06/17 19:32 Claritin - PO 07/06/17 19:24 10 mg ONCE ONE Administration Methylprednisolone Sodium Succinate 125 mg 07/06/17 16:39 07/06/17 16:44 Solu-Medrol - IVPB 07/06/17 16:40 125 mg ONCE ONE Administration Medical Decision Making - Medical Decision Making 07/06/17 19:59 07/06/17 19:59 Pt signed out to me by [employer]IST Andolino 51 yo F, h/o GERD, asthma, multiple food and drug allergies w/ numerous ED visits for rash/allergic reaction w/ intermittent admissions, allergic to epi, here w/ diffuse pruritic rash while cleaning her room today. So far has received benadryl, pepcid and soludmedrol which improved symptoms moderately but continues to have intense itching. No angioedema/airway compromise. Recently given claritin. Plan is to reassess in 1-2 hrs and if still symptomatic , will consider admitting to obs 07/06/17 20:01 07/06/17 20:11 Pt reports feeling significantly better ~30 minutes after receiving claritin and now wants to be discharged. Rpt vitals stable. Will dc w/ meds and strict return precautions 07/06/17 20:17 *DC/Admit/Observation/Transfer Diagnosis at time of Disposition: Acute allergic reaction Qualifiers: Encounter type: initial encounter Qualified Code(s): T78.40XA - Allergy, unspecified, initial encounter - Discharge Dispostion Disposition: HOME Condition at time of disposition: Improved - Prescriptions Prescriptions: Diphenhydramine HCl [Benadryl -] 25 mg PO Q6H #28 capsule Loratadine [Claritin] 10 mg PO DAILY #7 tablet Prednisone [Deltasone -] 40 mg PO DAILY #8 tablet Famotidine [Pepcid] 20 mg PO DAILY #7 tablet - Patient Instructions Printed Discharge Instructions: DI for General Allergic Reactions Additional Instructions: Take prednisone and pepcid daily starting tomorrow Take benadryl every 6 hrs as needed , but if you find that benadryl does not help relieve symptoms, you can take Claritin daily as needed Please return to ED immediately if symptoms worsen at home
[2017-07-06 20:23] VITALS: BP 125/75; PULSE 91; TEMP 98.6
== END 2017-07-06 20:23 | disposition home or self-care (01) ==
LOC: JERFT 16:18 → JER 16:18 → JERFT 20:23
PROC: 3E033GC Introduction of Other Therapeutic Substance into Peripheral Vein, Percutaneous Approach (ICD-10-PCS; principal; 2017-07-06)
PROC: 3E033NZ Introduction of Analgesics, Hypnotics, Sedatives into Peripheral Vein, Percutaneous Approach (ICD-10-PCS; 2017-07-06)
PROC: 3E033GC Introduction of Other Therapeutic Substance into Peripheral Vein, Percutaneous Approach (ICD-10-PCS; 2017-07-06)
DX: T78.49XA Other allergy, initial encounter (principal)
CPT/HCPCS: 96365; 96375; 99281-25

== ENCOUNTER 2017-10-03 14:32 | Emergency (ER) | payer SELFPAY ==
--- NOTE | 2017-10-03 14:41 | PDOC ---
Rapid Medical Evaluation Chief Complaint: Allergic Reaction Time Seen by Provider: 10/03/17 14:38 Medical Evaluation: Allergies Allergy/AdvReac Type Severity Reaction Status Date / Time epinephrine Allergy Verified 10/03/17 14:36 perfume Allergy Verified 10/03/17 14:36 pistachio nut Allergy Verified 10/03/17 14:36 seafood Allergy Uncoded 10/03/17 14:36 10/03/17 14:39 I have performed a brief in-person evaluation of this patient. The patient presents with a chief complaint of: skin rash Pertinent physical exam findings: diffuse rash, hx of mrsa I have ordered the following: pt brought directly to bed one. no resp distress, provider to determine The patient will proceed to the ED for further evaluation.
[2017-10-03 14:42] VITALS: BP 111/92; PULSE 124; TEMP 98; BMI 31.8
--- NOTE | 2017-10-03 15:00 | PDOC ---
History of Present Illness - General Chief Complaint: Allergic Reaction Stated Complaint: ALLERGIC REACTION Time Seen by Provider: 10/03/17 14:38 - History of Present Illness Initial Comments: The patient is a 51 year old female with a past medical history of severe allergies and asthma who presents to the emergency department for diffuse pruritic skin lesions and generalized erythema all over her entire body. Of note she was recently discharged from [facility] for a cellulites that she states was MRSA positive. She has been taking Bactrim that didn't give her a reaction during her hospital stay but she has had a very pruritic diffuse rash since being discharged that has gotten worse. She was seen here 17 days prior for an almost identical presentation but this was prior to her admission at [facility] for MRSA cellulites. Denies fevers, chills, nausea, vomiting, diarrhea, chest pain, urinary symptoms, or other symptoms. She has tried Benadryl and Atarax for the itching but it has only helped marginally. She states that she sleeps on the floor of a wooden floored house because she does not find her bed comfortable. Denies insect or animal contact. 10/03/17 15:14 Past History - Past Medical History Allergies/Adverse Reactions: Allergies Allergy/AdvReac Type Severity Reaction Status Date / Time epinephrine Allergy Verified 10/03/17 14:36 perfume Allergy Verified 10/03/17 14:36 pistachio nut Allergy Verified 10/03/17 14:36 seafood Allergy Uncoded 10/03/17 14:36 Home Medications: Ambulatory Orders Diphenhydramine [Benadryl Capsule -] 25 mg PO DAILY PRN 02/20/17 Albuterol Sulfate Inhaler - [Ventolin HFA Inhaler -] 1 - 2 inh PO Q4H PRN Famotidine [Pepcid] 20 mg PO DAILY #7 tablet 07/06/17 Loratadine [Claritin] 10 mg PO DAILY #7 tablet 07/06/17 Methylprednisolone [Medrol Dose Marco A] 4 mg PO ASDIR #21 tablet 09/16/17 Calamine/Zinc Oxide [Calamine Lotion] 180 ml TP BID PRN #1 lotion 10/03/17 Diphenhydramine [Benadryl 1% Cream -] 1 applic TP DAILY #1 tube 10/03/17 Doxycycline Hyclate 100 mg PO BID 5 Days #10 capsule 10/03/17 Methylprednisolone [Medrol Dose Marco A] 4 mg PO ASDIR #21 tablet 10/03/17 Anemia: Yes Asthma: Yes Cancer: No Cardiac Disorders: Yes CVA: Yes (X2 right sided weakness/numbness) COPD: No CHF: No Dementia: No Diabetes: No GI Disorders: No Disorders: No HTN: No Hypercholesterolemia: Yes Liver Disease: No Seizures: No Thyroid Disease: No - Surgical History Abdominal Surgery: No Appendectomy: No Cardiac Surgery: No Cholecystectomy: No Lung Surgery: No Neurologic Surgery: (left ear sx x3, hard of hearing/tonsilectomy) Orthopedic Surgery: No - Immunization History Td Vaccination: Yes Immunization Up to Date: Yes - Suicide/Smoking/Psychosocial Hx Smoking Status: No Smoking History: Never smoked Have you smoked in the past 12 months: No Number of Cigarettes Smoked Daily: 0 Cigars Per Day: 0 Information on smoking cessation initiated: No Hx Alcohol Use: No Drug/Substance Use Hx: No Substance Use Type: None Hx Substance Use Treatment: No Review of Systems - Review of Systems Constitutional: No: Chills, Diaphoresis, Fever HEENTM: No: Blurred Vision Respiratory: No: Shortness of Breath, Wheezing Cardiac (ROS): No: Chest Pain : No: Dysuria, Discharge Integumentary: Yes: Erythema, Lesions, Pruritus, Rash. No: Bruising Neurological: No: Headache, Numbness *Physical Exam - Vital Signs Last Vital Signs Temp Pulse Resp BP Pulse Ox 98.0 F 124 H 20 111/92 100 10/03/17 14:37 10/03/17 14:37 10/03/17 14:37 10/03/17 14:37 10/03/17 14:37 - Physical Exam General Appearance: Yes: Nourished, Appropriately Dressed, Apparent Distress, Mild Distress HEENT: positive: EOMI, HALEY, Normal ENT Inspection, Normal Voice Neck: positive: Trachea midline, Normal Thyroid, Supple. negative: Tender, Rigid Respiratory/Chest: positive: Lungs Clear, Normal Breath Sounds. negative: Chest Tender, Respiratory Distress, Accessory Muscle Use Cardiovascular: positive: Regular Rhythm, Regular Rate, S1, S2. negative: Edema , JVD, Murmur Gastrointestinal/Abdominal: positive: Normal Bowel Sounds, Flat, Soft. negative : Tender Musculoskeletal: positive: Normal Inspection Extremity: positive: Normal Inspection, Normal Range of Motion Integumentary: positive: Dry, Warm, Erythema, Rash, Other (Diffuse pruritic erythematous rash that is blanching and only slutly raised. Appears urticarial in certain areas but this is not consistent. Other areas of her skin are simply erythematous.). negative: Normal Color ED Treatment Course - LABORATORY CBC & Chemistry Diagram: 10/03/17 16:30 10/03/17 16:30 Medical Decision Making - Medical Decision Making Diffuse rash concerning most likely for drug reaction vs. general otherwise allergy as she has history of unprovoked presentations with bright red skin and severe pruritus but no systemic signs. No active area of infection but will finish her antibiotic regimen because of her recent discharge with cellulites. We discussed the case with Dr. Haile and he agrees with the suspicion for drug reaction. He recommends to stop Bactrim, switch to Doxycycline 100 BID x 5 days and medrol dose pack. We will also prescribe topical Benadryl and calamine lotion. We will refer to outpatient ID for follow up. 10/03/17 19:17 *DC/Admit/Observation/Transfer Diagnosis at time of Disposition: Allergic reaction caused by a drug Qualifiers: Encounter type: subsequent encounter Qualified Code(s): T78.40XD - Allergy, unspecified, subsequent encounter - Discharge Dispostion Disposition: HOME Condition at time of disposition: Improved Admit: No - Referrals Referrals: Raymond Haile MD [Staff Physician] - Navi Hutson [Staff Physician] - Adelina Cadena MD [Staff Physician] - - Patient Instructions Printed Discharge Instructions: DI for Adverse Drug Reaction -- Allergic Additional Instructions: Please take the antibiotics as prescribed. Please take attarax and Benadryl for any itching that you have. Please also use the calamine cream on any itching areas that you have. If calamine does not work then please use Benadryl cream. Please follow up with Dr. Ames from infectious disease to have your rash further evaluated. Please also see a director search for further evaluation of your skin problems. - Post Discharge Activity
[2017-10-03] MEDS ORDERED: SODIUM CHLORIDE 0.9% 1000 ML INFUS.BAG IV ONE (15:44)
[2017-10-03] MEDS ORDERED: methylPREDNISolone NA SUCC 125 MG/2 ML VIAL IVPUSH ONE (15:45)
--- NOTE | 2017-10-03 15:54 | PDOC ---
Attending Attestation - HPI HPI: 10/03/17 16:16 Patient is a 51 year old female with a PMHx of severe allergies, who presents to the ED complaining of a severe allergic reaction. Recently discharged from [facility] for a MRSA infection. Currently taking antibiotics. Patient states that she does not have a PCP. - Physicial Exam PE: 10/03/17 16:18 GENERAL: Awake, alert, and fully oriented, In acute distress HEAD: No signs of trauma EYES: PERRLA, EOMI, sclera anicteric, conjunctiva clear ENT: Auricles normal inspection, hearing grossly normal, nares patent, oropharynx clear without exudates. Moist mucosa NECK: Normal ROM, supple, no lymphadenopathy, JVD, or masses LUNGS: Breath sounds equal, clear to auscultation bilaterally. No wheezes, and no crackles HEART: Tachycardic. No murmurs, rubs or gallops ABDOMEN: Soft, nontender, normoactive bowel sounds. No guarding, no rebound. No masses EXTREMITIES: Normal range of motion, no edema. No clubbing or cyanosis. No cords, erythema, or tenderness NEUROLOGICAL: Cranial nerves II through XII grossly intact. Normal speech, normal gait SKIN: Hot to touch, errythematous. Puritic rash all over body, head, neck, chest , belly, arms, legs, with the exception of mucous membranes. . <Teresa Isaac - Last Filed: 10/03/17 16:16> - Resident Resident Name: LovelyJuan Manueldarlingbon - ED Attending Attestation I have performed the following: I have examined & evaluated the patient, The case was reviewed & discussed with the resident, I agree w/resident's findings & plan, Exceptions are as noted - Medical Decision Making 10/03/17 15:45 I, Dr. Mily Whitmore, DO, attest that this document has been prepared under my direction and personally reviewed by me in its entirety. I further attest, that it accurately reflects all work, treatment, procedures and medical decision -making performed by me. 10/03/17 16:49 a/p: 51yo female with diffuse rash and pruritis -labs -concern for drug reaction, drug rash, allergic reaction vs diffuse cellulitis -blanchable rash -labs -allergy meds -will discuss with ID given recent dx of MRSA on bactrim from [facility]. -ivf hydration 10/03/17 17:[address] stevens - suspect bactrim drug reaction stop bactrim medrol dose lexy doxy 100bid for mrsa infection for 5 days f/u with ID as outpt. 10/03/17 17:07 pt will be signed out to the oncoming ed physician pending labs and repeat eval. <Mily Whitmore - Last Filed: 10/03/17 17:08>
[2017-10-03 17:05] LABS: BASOPHIL 0.3 % (0-2.0); EOSINOPHIL 9.5 % (0-4.5); MCH 28.7 pg (25.7-33.7); MCHC 32.6 g/dl (32.0-36.0); MEAN PLT VOLUME 9.2 fl (7.5-11.1); NEUTROPHILS 71.3 % (42.8-82.8); PLATELET COUNT 297 K/MM3 (134-434)
[2017-10-03 17:18] LABS: ALK PHOS 77 U/L (45-117); ANION GAP 11 (8-16); BILIRUBIN,TOTAL 0.2 mg/dL (0.2-1.0); CO2 23 mmol/L (21-32); GLUCOSE,RANDOM 140 mg/dL (74-106); SGOT/AST 28 U/L (15-37); TOT PROT 6.7 g/dl (6.4-8.2)
[2017-10-03 17:23] LABS: SGPT/ALT 31 U/L (12-78)
[2017-10-03] MEDS ORDERED: ACETAMINOPHEN 325 MG TABLET (FP) PO ONE (19:17)
[2017-10-03] MEDS ORDERED: DOXYCYCLINE HYCLATE 100 MG CAPSULE PO ONE ×2 (19:22→20:32)
[2017-10-03] MEDS ORDERED: ACETAMINOPHEN 325 MG TABLET (FP) ONE (20:31)
== END 2017-10-03 20:51 | disposition home or self-care (01) ==
LOC: JER 14:32
PROC: 3E0333Z Introduction of Anti-inflammatory into Peripheral Vein, Percutaneous Approach (ICD-10-PCS; principal; 2017-10-03)
PROC: 3E033GC Introduction of Other Therapeutic Substance into Peripheral Vein, Percutaneous Approach (ICD-10-PCS; 2017-10-03)
PROC: 3E033GC Introduction of Other Therapeutic Substance into Peripheral Vein, Percutaneous Approach (ICD-10-PCS; 2017-10-03)
DX: T37.0X5A Adverse effect of sulfonamides, initial encounter (principal); J45.909 Unspecified asthma, uncomplicated; D64.9 Anemia, unspecified; E78.00 Pure hypercholesterolemia, unspecified; I69.851 Hemiplegia and hemiparesis following other cerebrovascular disease affecting right dominant side
CPT/HCPCS: 36415; 80053; 85025; 99281-25

== ENCOUNTER 2018-01-22 23:12 | Emergency (ER) | payer SELFPAY ==
[2018-01-22] MEDS ORDERED: FAMOTIDINE IV 20 MG/12 ML VIAL IVPUSH SCH (23:15)
[2018-01-22] MEDS ORDERED: DEXAMETHASONE SOD PHOSPHATE 20 MG/5 ML VIAL IVPB ONE (23:36)
[2018-01-22] MEDS ORDERED: DEXAMETHASONE SOD PHOSPHATE 10 MG/1 ML VIAL ONE (23:44)
[2018-01-22] MEDS ORDERED: FAMOTIDINE 20 MG/50 ML IVPB 20 MG/50 ML MG IVPB ONE (23:45)
--- NOTE | 2018-01-22 23:55 | PDOC ---
History of Present Illness - General History Source: Patient Exam Limitations: No Limitations - History of Present Illness Initial Comments: 01/22/18 23:58 The patient is a 52 year old female with history of multiple allergies and multiple ED visits for urticarial rash who presents to the ED complaining of erythamatous rash all over her body including face, trunk, arms, and legs. She states she used a [place] body wash in the shower today prior to the onset of her symptoms. She reports she used this body wash once before and experienced a similar rash. The patient denies any difficulty breathing or swallowing. She denies any fever or chills. She denies any chest pain or shortness of breath. She did not take any medication for her symptoms prior to arrival. <Marj Rome - Last Filed: 01/23/18 00:23> <Bertha Humphries - Last Filed: 01/23/18 01:54> - General Chief Complaint: Allergic Reaction Stated Complaint: ALLERGIC REACTION Time Seen by Provider: 01/22/18 23:23 Past History <Marj Rome - Last Filed: 01/23/18 00:23> - Past Medical History Anemia: Yes Asthma: Yes Cancer: No Cardiac Disorders: Yes CVA: Yes (X2 right sided weakness/numbness) COPD: No CHF: No Dementia: No Diabetes: No GI Disorders: No Disorders: No HTN: No Hypercholesterolemia: Yes Liver Disease: No Seizures: No Thyroid Disease: No - Surgical History Abdominal Surgery: No Appendectomy: No Cardiac Surgery: No Cholecystectomy: No Lung Surgery: No Neurologic Surgery: (left ear sx x3, hard of hearing/tonsilectomy) Orthopedic Surgery: No - Immunization History Td Vaccination: Yes Immunization Up to Date: Yes - Suicide/Smoking/Psychosocial Hx Smoking Status: No Smoking History: Never smoked Have you smoked in the past 12 months: No Number of Cigarettes Smoked Daily: 0 Cigars Per Day: 0 Hx Alcohol Use: No Drug/Substance Use Hx: No Substance Use Type: None Hx Substance Use Treatment: No <Bertha Humphries - Last Filed: 01/23/18 01:54> - Past Medical History Allergies/Adverse Reactions: Allergies Allergy/AdvReac Type Severity Reaction Status Date / Time epinephrine Allergy Verified 01/23/18 00:12 perfume Allergy Verified 01/23/18 00:12 pistachio nut Allergy Verified 01/23/18 00:12 seafood Allergy Uncoded 01/23/18 00:12 Home Medications: Ambulatory Orders Diphenhydramine [Benadryl Capsule -] 25 mg PO DAILY PRN 02/20/17 Albuterol Sulfate Inhaler - [Ventolin HFA Inhaler -] 1 - 2 inh PO Q4H PRN Famotidine [Pepcid] 20 mg PO DAILY #7 tablet 07/06/17 Loratadine [Claritin] 10 mg PO DAILY #7 tablet 07/06/17 Methylprednisolone [Medrol Dose Marco A] 4 mg PO ASDIR #21 tablet 09/16/17 Calamine/Zinc Oxide [Calamine Lotion] 180 ml TP BID PRN #1 lotion 10/03/17 Diphenhydramine [Benadryl 1% Cream -] 1 applic TP DAILY #1 tube 10/03/17 Doxycycline Hyclate 100 mg PO BID 5 Days #10 capsule 10/03/17 Methylprednisolone [Medrol Dose Marco A] 4 mg PO ASDIR #21 tablet 10/03/17 Diphenhydramine HCl [Benadryl -] 25 mg PO Q6H PRN #28 capsule 01/23/18 Diphenhydramine HCl/Zinc Acet [Benadryl 2% Cream] 1 applic TP BID PRN #1 tube Methylprednisolone [Medrol Dose Marco A] 4 mg PO ASDIR #21 tablet 01/23/18 Review of Systems - Review of Systems Able to Perform ROS?: Yes Comments:: 01/23/18 00:09 GENERAL/CONSTITUTIONAL: No fever or chills. No weakness. HEAD, EYES, EARS, NOSE AND THROAT: No change in vision. No ear pain or discharge. No sore throat. CARDIOVASCULAR: No chest pain or shortness of breath. RESPIRATORY: No cough, wheezing, or hemoptysis. GASTROINTESTINAL: No nausea, vomiting, diarrhea or constipation. GENITOURINARY: No dysuria, frequency, or change in urination. MUSCULOSKELETAL: No joint or muscle swelling or pain. No neck or back pain. SKIN: +Diffuse erythematous rash. NEUROLOGIC: No headache, vertigo, loss of consciousness, or change in strength/ sensation. ENDOCRINE: No increased thirst. No abnormal weight change. HEMATOLOGIC/LYMPHATIC: No anemia, easy bleeding, or history of blood clots. ALLERGIC/IMMUNOLOGIC: No hives or skin allergy. <Marj Rome - Last Filed: 01/23/18 00:23> *Physical Exam - Physical Exam Comments: 01/23/18 00:09 GENERAL: Awake, alert, and fully oriented, in no acute distress HEAD: No signs of trauma. No facial swelling. EYES: PERRLA, EOMI, sclera anicteric, conjunctiva clear ENT: Auricles normal inspection, nares patent. Moist mucosa. Airway patent. NECK: Normal ROM, supple, no JVD, or masses LUNGS: Breath sounds equal, clear to auscultation bilaterally. No wheezes, and no crackles. No stridor or respiratory. HEART: Tachycardic rash, regular rhythm, normal S1 and S2, no murmurs, rubs or gallops ABDOMEN: Soft, nontender, normoactive bowel sounds. No guarding, no rebound. No masses EXTREMITIES: Normal range of motion, no edema. No clubbing or cyanosis. No cords, erythema, or tenderness NEUROLOGICAL: Alert and oriented x 3. Moves all extremities. Face is symmetric. SKIN: +Diffuse erythematous rash to face, trunk, and extremities that are itchy. No open lesions. <Marj Rome - Last Filed: 01/23/18 00:23> *DC/Admit/Observation/Transfer - Attestations Scribe Attestion: 01/23/18 00:10 Documentation prepared by Marj Rome, acting as medical biller coder for Bertha Humphries MD. <Marj Rome - Last Filed: 01/23/18 00:23> <Bertha Humphries - Last Filed: 01/23/18 01:54> Diagnosis at time of Disposition: Pruritic dermatitis Allergic reaction caused by a drug Qualifiers: Encounter type: initial encounter Qualified Code(s): T78.40XA - Allergy, unspecified, initial encounter - Discharge Dispostion Disposition: HOME Condition at time of disposition: Stable - Prescriptions Prescriptions: Diphenhydramine HCl [Benadryl -] 25 mg PO Q6H PRN #28 capsule PRN Reason: For Itching Diphenhydramine HCl/Zinc Acet [Benadryl 2% Cream] 1 applic TP BID PRN #1 tube PRN Reason: For Itching Methylprednisolone [Medrol Dose Marco A] 4 mg PO ASDIR #21 tablet - Referrals Referrals: Santosh Espinoza MD [Primary Care Provider] - - Patient Instructions Printed Discharge Instructions: DI for Adverse Drug Reaction -- Allergic Additional Instructions: please call your radar engineer and reschedule your appointment please grape picker your medications at your [facility]
[2018-01-23 00:12] VITALS: BP 114/76; PULSE 114; TEMP 98.2; BMI 31.3
[2018-01-23] MEDS ORDERED: FAMOTIDINE IV 20 MG/12 ML VIAL IVPUSH ONE (23:38)
== END 2018-01-23 02:17 | disposition home or self-care (01) ==
LOC: JER 23:12 → SUPCPDRO 23:12 → JER 01-23 02:17
DX: T49.8X Poisoning by, adverse effect of and underdosing of other topical agents (principal); L23.2 Allergic contact dermatitis due to cosmetics; Y92.031 Bathroom in apartment as the place of occurrence of the external cause
CPT/HCPCS: 99282-25

== ENCOUNTER 2018-02-20 18:21 | Emergency (ER) | payer SELFPAY ==
[2018-02-20 18:27] VITALS: BMI 32.3
[2018-02-20] MEDS ORDERED: FAMOTIDINE IV 20 MG/12 ML VIAL IVPUSH ONE (18:28)
[2018-02-20] MEDS ORDERED: diphenhydrAMINE HCL 25 MG CAPSULE (FP) PO ONE ×2 (18:28→18:52)
[2018-02-20] MEDS ORDERED: methylPREDNISolone NA SUCC 125 MG/2 ML VIAL IVPB ONE (18:28)
--- NOTE | 2018-02-20 18:29 | PDOC ---
Rapid Medical Evaluation Chief Complaint: Allergic Reaction Time Seen by Provider: 02/20/18 18:24 Medical Evaluation: Allergies Allergy/AdvReac Type Severity Reaction Status Date / Time epinephrine Allergy Verified 02/20/18 18:23 perfume Allergy Verified 02/20/18 18:23 pistachio nut Allergy Verified 02/20/18 18:23 seafood Allergy Uncoded 02/20/18 18:23 02/20/18 18:24 Pt preseents with allergic reaction to soap today. she is red, dry skin, facial itching and red arms and legs with hives. No c/o tongue swelling, resp distress, diff breathing. Ordered cbc, cmp, solumedrol, benadryl, pepcid To be seen in ER for evaluation
[2018-02-20] MEDS ORDERED: FAMOTIDINE 20 MG/50 ML IVPB 20 MG/50 ML MG IVPB ONE (18:52)
[2018-02-20] MEDS ORDERED: methylPREDNISolone NA SUCC 125 MG/2 ML VIAL ONE (18:52)
[2018-02-20] MEDS ORDERED: HYDROCORTISONE 1% TOPICAL CREAM 30 GM TUBE TP ONE (21:27)
--- NOTE | 2018-02-20 21:27 | PDOC ---
History of Present Illness - General Chief Complaint: Allergic Reaction Stated Complaint: ALLERGIC REACTION Time Seen by Provider: 02/20/18 18:24 History Source: Patient Exam Limitations: No Limitations - History of Present Illness Initial Comments: 02/20/18 21:08 The patient is a 52F with a PMH of severe allergies, urticaria, and asthma who presents to the ER with complaints of an allergic reaction. The patient states that she was showering with a new dove lotion and after she got out of the shower, she noticed that her skin was red and she came to the ER. She denies any fever, chills, nausea, vomiting, CP, SOB, throat tightness. Past History - Past Medical History Allergies/Adverse Reactions: Allergies Allergy/AdvReac Type Severity Reaction Status Date / Time epinephrine Allergy Verified 02/20/18 18:23 perfume Allergy Verified 02/20/18 18:23 pistachio nut Allergy Verified 02/20/18 18:23 seafood Allergy Uncoded 02/20/18 18:23 Home Medications: Ambulatory Orders Diphenhydramine [Benadryl Capsule -] 25 mg PO DAILY PRN 02/20/17 Albuterol Sulfate Inhaler - [Ventolin HFA Inhaler -] 1 - 2 inh PO Q4H PRN Famotidine [Pepcid] 20 mg PO DAILY #7 tablet 07/06/17 Loratadine [Claritin] 10 mg PO DAILY #7 tablet 07/06/17 Methylprednisolone [Medrol Dose Marco A] 4 mg PO ASDIR #21 tablet 09/16/17 Calamine/Zinc Oxide [Calamine Lotion] 180 ml TP BID PRN #1 lotion 10/03/17 Diphenhydramine [Benadryl 1% Cream -] 1 applic TP DAILY #1 tube 10/03/17 Doxycycline Hyclate 100 mg PO BID 5 Days #10 capsule 10/03/17 Methylprednisolone [Medrol Dose Marco A] 4 mg PO ASDIR #21 tablet 10/03/17 Diphenhydramine HCl [Benadryl -] 25 mg PO Q6H PRN #28 capsule 01/23/18 Diphenhydramine HCl/Zinc Acet [Benadryl 2% Cream] 1 applic TP BID PRN #1 tube Hydrocortisone 1% Cream [Hytone 1% Cream -] 1 applic TP DAILY PRN #1 tube Methylprednisolone [Medrol Dose Marco A] 4 mg PO ASDIR #21 tablet 01/23/18 Prednisone [Prednisone 50 MG TABLETS] 50 mg PO QID #4 tablet 02/20/18 Anemia: Yes Asthma: Yes Cancer: No Cardiac Disorders: Yes CVA: Yes (X2 right sided weakness/numbness) COPD: No CHF: No DVT: No Dementia: No Diabetes: No GI Disorders: No Disorders: No HTN: No Hypercholesterolemia: Yes Liver Disease: No Seizures: No Thyroid Disease: No - Surgical History Abdominal Surgery: No Appendectomy: No Cardiac Surgery: No Cholecystectomy: No Lung Surgery: No Neurologic Surgery: (left ear sx x3, hard of hearing/tonsilectomy) Orthopedic Surgery: No - Immunization History Td Vaccination: Yes Immunization Up to Date: Yes - Suicide/Smoking/Psychosocial Hx Smoking Status: No Smoking History: Never smoked Have you smoked in the past 12 months: No Number of Cigarettes Smoked Daily: 0 Cigars Per Day: 0 Information on smoking cessation initiated: No Hx Alcohol Use: No Drug/Substance Use Hx: No Substance Use Type: None Hx Substance Use Treatment: No Review of Systems - Review of Systems Able to Perform ROS?: Yes Comments:: 02/20/18 22:35 GENERAL/CONSTITUTIONAL: No fever or chills. No weakness. HEAD, EYES, EARS, NOSE AND THROAT: No change in vision. No ear pain or discharge. No sore throat. CARDIOVASCULAR: No chest pain, palpitations, or lightheadedness. RESPIRATORY: No cough, wheezing, shortness of breath, or hemoptysis. GASTROINTESTINAL: No nausea, vomiting, diarrhea, constipation, or abdominal pain. GENITOURINARY: No dysuria, frequency, hematuria, or change in urination. MUSCULOSKELETAL: No joint or muscle swelling or pain. No neck or back pain. SKIN: No rash or lesions. NEUROLOGIC: Positive for seizures. No headache, numbness, tingling, weakness, loss of consciousness, or change in strength/sensation. ENDOCRINE: No increased thirst. No abnormal weight change. HEMATOLOGIC/LYMPHATIC: No anemia, easy bleeding, or history of blood clots. ALLERGIC/IMMUNOLOGIC: No hives or skin allergy. Is the patient limited [place] proficient: No *Physical Exam - Vital Signs Last Vital Signs Temp Pulse Resp BP Pulse Ox 98.3 F 112 H 18 133/75 100 02/20/18 18:24 02/20/18 18:24 02/20/18 18:24 02/20/18 18:24 02/20/18 18:24 - Physical Exam Comments: 02/20/18 22:36 GENERAL: Well developed, well nourished. Awake and alert. No acute distress. HEENT: Normocephalic, atraumatic. Hearing grossly normal. Moist mucous membranes. PERRLA, EOMI. No conjunctival pallor. Sclera are non-icteric. Oropharynx is clear. NECK: Supple. Full ROM. No JVD. CARDIOVASCULAR: Regular rate and rhythm. No murmurs, rubs, or gallops. PULMONARY: No evidence of respiratory distress. Lungs clear to auscultation bilaterally. No wheezing, rales or rhonchi. ABDOMINAL: Soft. Non-tender. Non-distended. No rebound or guarding. GENITOURINARY: No CVA tenderness bilaterally. MUSCULOSKELETAL: Normal range of motion at all joints. No bony deformities or tenderness. EXTREMITIES: No cyanosis. No clubbing. No edema. No calf tenderness. SKIN: Warm and dry. Diffuse urticaria and erythema throughout body. Normal capillary refill. No jaundice. NEUROLOGICAL: Alert, awake, appropriate. Cranial nerves 2-12 intact. Normal speech. Gait is normal without ataxia. PSYCHIATRIC: Cooperative. Good eye contact. Appropriate mood and affect. ED Treatment Course - Medications Given in the ED: ED Medications Discontinued Medications Generic Name Dose Route Start Last Admin Trade Name Freq PRN Reason Stop Dose Admin Diphenhydramine HCl 50 mg 02/20/18 18:28 02/20/18 19:09 Benadryl - PO 02/20/18 18:29 Not Given ONCE ONE Diphenhydramine HCl 50 mg 02/20/18 19:06 02/20/18 19:09 Benadryl Injection - IVPUSH 02/20/18 19:07 50 mg ONCE ONE Administration Famotidine 20 mg in 12 mls @ 144 mls/hr 02/20/18 18:28 02/20/18 19:04 Pepcid 20 Mg/12 Ml Push IVPUSH 02/20/18 18:32 144 mls/hr ONCE ONE Administration Methylprednisolone Sodium Succinate 125 mg 02/20/18 18:28 02/20/18 19:04 Solu-Medrol - IVPB 02/20/18 18:29 125 mg ONCE ONE Administration Medical Decision Making - Medical Decision Making 02/20/18 23:02 The patient is a 52F with a PMH of severe allergic reactions who presents to the ER after having an allergic reaction to dove soap. The patient was treated with 50 IV benadryl, 125 solumedrol, and 40 ranitidine. I also gave her 1% hydrocortisone cream for her itchiness. Pt is comfortable and will be d/c home with prednisone. 02/20/18 23:15 1 L NS given, tachycardia has resolved. Pulse 98. Pt ready for d/c. *DC/Admit/Observation/Transfer Diagnosis at time of Disposition: Acute allergic reaction Qualifiers: Encounter type: subsequent encounter Qualified Code(s): T78.40XD - Allergy, unspecified, subsequent encounter - Discharge Dispostion Disposition: HOME Condition at time of disposition: Stable Admit: No - Prescriptions Prescriptions: Prednisone [Prednisone 50 MG TABLETS] 50 mg PO QID #4 tablet - Referrals Referrals: Luba Hankins MD [Staff Physician] - - Patient Instructions Additional Instructions: Please return to the ER if you have any signs or symptoms of chest pain, shortness of breath, uncontrollable fever, chills, nausea, vomiting, numbness, tingling, or weakness in any part of your body, changes in vision, or slurred speech. Please take your medications as prescribed. Please follow up with Dr. Hankins, an allergy doctor, in 2-3 days. Please return to the ER if symptoms persist, worsen, or new symptoms arise. - Post Discharge Activity
[2018-02-20] MEDS ORDERED: SODIUM CHLORIDE 1,000 ML IV STA (21:42)
--- NOTE | 2018-02-20 21:46 | PDOC ---
Attending Attestation - Resident Resident Name: Jem Matamoros - ED Attending Attestation I have performed the following: I have examined & evaluated the patient, The case was reviewed & discussed with the resident, I agree w/resident's findings & plan, Exceptions are as noted - HPI HPI: 02/20/18 21:47 52 yo F with multiple visits for "allergic reactions" presents to ED with acute onset urticarial rash after using a new soap today. Pt denies any new foods, denies any new meds. States that she noticed her rash immediately after leaving the shower. Pt denies any SOB, denies tongue swelling, denies voice changes, denies nausea/vomiting, denies lightheadedness/dizziness. Denies any lesions in the mouth or on her palms or soles. Pt was seen here last month with similar presentation, rash after using new body wash. Pt has not yet followed up with an electronic game developer. - Physicial Exam PE: 02/20/18 21:43 "GENERAL: Awake, alert, and fully oriented, in no acute distress. Generally weak appearing. HEAD: No signs of trauma EYES: PERRLA, EOMI, sclera anicteric, conjunctiva clear ENT: Auricles normal inspection, hearing grossly normal, nares patent, oropharynx clear without exudates. Moist mucosa NECK: Nontender, no stepoffs, Normal ROM, supple, no lymphadenopathy, JVD, or masses LUNGS: Breath sounds equal, clear to auscultation bilaterally. No wheezes, and no crackles HEART: Regular rate and rhythm, normal S1 and S2, no murmurs, rubs or gallops ABDOMEN: Soft, normoactive bowel sounds. No guarding, no rebound. No masses EXTREMITIES: Normal range of motion, no edema. No clubbing or cyanosis. No cords, erythema, or tenderness NEUROLOGICAL: Cranial nerves II through XII intact. 5/5 strength and sensation in all extremities, Normal speech, normal gait, normal cerebellar function SKIN: diffuse morbilliform rash on face, torso, back, arms, legs, no pustules or cysts, no palmar lesions, no oral mucosal involvement " - Medical Decision Making 02/20/18 21:44 52 F with diffuse urticarial rash after using new soap. Pt with multiple similar presentations to ED with similar episodes. Possible acute allergic reaction vs chronic urticaria. Pt with no evidence of airway involvement, no signs of SJS/TENS on exam. No new medications. No new foods. - Benadryl, steroids, pepcid - F/u electronic game developer
[2018-02-20 23:36] VITALS: BP 126/78; PULSE 99; TEMP 99
== END 2018-02-20 23:35 | disposition home or self-care (01) ==
LOC: JER 18:21
PROC: 3E0337Z Introduction of Electrolytic and Water Balance Substance into Peripheral Vein, Percutaneous Approach (ICD-10-PCS; principal; 2018-02-20)
PROC: 3E0333Z Introduction of Anti-inflammatory into Peripheral Vein, Percutaneous Approach (ICD-10-PCS; 2018-02-20)
PROC: 3E033GC Introduction of Other Therapeutic Substance into Peripheral Vein, Percutaneous Approach (ICD-10-PCS; 2018-02-20)
PROC: 3E033GC Introduction of Other Therapeutic Substance into Peripheral Vein, Percutaneous Approach (ICD-10-PCS; 2018-02-20)
DX: L50.8 Other urticaria (principal); T49.2X5A Adverse effect of local astringents and local detergents, initial encounter; Y92.038 Other place in apartment as the place of occurrence of the external cause; J45.909 Unspecified asthma, uncomplicated; D64.9 Anemia, unspecified; E78.00 Pure hypercholesterolemia, unspecified; G40.909 Epilepsy, unspecified, not intractable, without status epilepticus; I69.851 Hemiplegia and hemiparesis following other cerebrovascular disease affecting right dominant side
CPT/HCPCS: 99283-25; J7030

== ENCOUNTER 2018-04-07 23:50 | Emergency (ER) | payer OTHER ==
[2018-04-08] MEDS ORDERED: methylPREDNISolone NA SUCC 125 MG/2 ML VIAL IVPB ONE (01:52)
--- NOTE | 2018-04-08 01:52 | PDOC ---
History of Present Illness - General Stated Complaint: Allergic Reaction Time Seen by Provider: 04/08/18 01:48 History Source: Patient Exam Limitations: No Limitations - History of Present Illness Initial Comments: 04/08/18 03:26 Best Contact:[phone] PCP: Clinic Pmhx:Asthma, in the left ear Pshx: Back surgery/unspecific Allergies: Patient states she has multiple ALLERGIES FH: Mother 70 years ago history of asthma, sleep apnea and lung disorder. Patient states she does not know her father Social Hx: Cigarettes/ 0 Alcohol/ 0 Drugs/0 LMP:N/A 52-year-old female presents to the emergency department complaining of an ALLERGIC reaction. Patient states her neighbor was cooking fish and every time she smells the fish, she feels that she on her chest arms and face but denies fever, chills, nausea/vomiting, facial pain, nasal congestion, rhinorrhea, sore throat, throat swelling sensation, chest pain, shortness of breath, abdominal pains. Past History - Past Medical History Allergies/Adverse Reactions: Allergies Allergy/AdvReac Type Severity Reaction Status Date / Time epinephrine Allergy Verified 04/08/18 02:17 perfume Allergy Verified 04/08/18 02:17 pistachio nut Allergy Verified 04/08/18 02:17 seafood Allergy Uncoded 04/08/18 02:17 Home Medications: Ambulatory Orders Diphenhydramine [Benadryl Capsule -] 25 mg PO DAILY PRN 02/20/17 Albuterol Sulfate Inhaler - [Ventolin HFA Inhaler -] 1 - 2 inh PO Q4H PRN Famotidine [Pepcid] 20 mg PO DAILY #7 tablet 07/06/17 Loratadine [Claritin] 10 mg PO DAILY #7 tablet 07/06/17 Methylprednisolone [Medrol Dose Marco A] 4 mg PO ASDIR #21 tablet 09/16/17 Calamine/Zinc Oxide [Calamine Lotion] 180 ml TP BID PRN #1 lotion 10/03/17 Diphenhydramine [Benadryl 1% Cream -] 1 applic TP DAILY #1 tube 10/03/17 Doxycycline Hyclate 100 mg PO BID 5 Days #10 capsule 10/03/17 Methylprednisolone [Medrol Dose Marco A] 4 mg PO ASDIR #21 tablet 10/03/17 Diphenhydramine HCl [Benadryl -] 25 mg PO Q6H PRN #28 capsule 01/23/18 Diphenhydramine HCl/Zinc Acet [Benadryl 2% Cream] 1 applic TP BID PRN #1 tube Hydrocortisone 1% Cream [Hytone 1% Cream -] 1 applic TP DAILY PRN #1 tube Methylprednisolone [Medrol Dose Marco A] 4 mg PO ASDIR #21 tablet 01/23/18 Prednisone [Prednisone 50 MG TABLETS] 50 mg PO QID #4 tablet 02/20/18 Anemia: Yes Asthma: Yes Cancer: No Cardiac Disorders: Yes CVA: Yes (X2 right sided weakness/numbness) COPD: No CHF: No DVT: No Dementia: No Diabetes: No GI Disorders: No Disorders: No HTN: No Hypercholesterolemia: Yes Liver Disease: No Seizures: No Thyroid Disease: No - Surgical History Abdominal Surgery: No Appendectomy: No Cardiac Surgery: No Cholecystectomy: No Lung Surgery: No Neurologic Surgery: (left ear sx x3, hard of hearing/tonsilectomy) Orthopedic Surgery: No - Immunization History Td Vaccination: Yes Immunization Up to Date: Yes - Suicide/Smoking/Psychosocial Hx Smoking Status: No Smoking History: Never smoked Have you smoked in the past 12 months: No Number of Cigarettes Smoked Daily: 0 Cigars Per Day: 0 Hx Alcohol Use: No Drug/Substance Use Hx: No Substance Use Type: None Hx Substance Use Treatment: No Review of Systems - Review of Systems Able to Perform ROS?: Yes Comments:: 04/08/18 03:30 CONSTITUTIONAL: Absent: fever, chills, diaphoresis, generalized weakness, malaise, loss of appetite HEENT: Absent: rhinorrhea, nasal congestion, throat pain, throat swelling, difficulty swallowing, mouth swelling, ear pain, eye pain, visual Changes CARDIOVASCULAR: Absent: chest pain, loss of consciousness, palpitations, irregular heart rate, peripheral edema RESPIRATORY: Absent: cough, shortness of breath, dyspnea with exertion, orthopnea, wheezing, stridor, hemoptysis GASTROINTESTINAL: Absent: abdominal pain, abdominal distension, nausea, vomiting, diarrhea, constipation, melena, hematochezia GENITOURINARY: Absent: dysuria, frequency, urgency, hesitancy, hematuria, flank pain, genital pain MUSCULOSKELETAL: Absent: myalgia, arthralgia, joint swelling SKIN: +itching Absent: rash, pallor HEMATOLOGIC/IMMUNOLOGIC: Absent: easy bleeding, easy bruising, lymphadenopathy, frequent infections ENDOCRINE: Absent: unexplained weight gain, unexplained weight loss, heat intolerance, cold intolerance NEUROLOGIC: Absent: headache, focal weakness or paresthesias, dizziness, unsteady gait, seizure, mental status changes, bladder or bowel incontinence PSYCHIATRIC: Absent: anxiety, depression, suicidal or homicidal ideation, hallucinations. Is the patient limited [place] proficient: No *Physical Exam - Physical Exam Comments: 04/08/18 03:31 GENERAL: Well developed, well nourished. Awake and alert. No acute distress. HEENT: Normocephalic, atraumatic. PERRLA, EOMI. No conjunctival pallor. Sclera are non- icteric. Moist mucous membranes. Oropharynx is clear. NECK: Supple. Full ROM. No JVD. Carotid pulses 2+ and symmetric, without bruits. No thyromegaly. No lymphadenopathy. CARDIOVASCULAR: Regular rate and rhythm. No murmurs, rubs, or gallops. Distal pulses are 2+ and symmetric. PULMONARY: No evidence of respiratory distress. Lungs clear to auscultation bilaterally. No wheezing, rales or rhonchi. ABDOMINAL: Soft. Non-tender. Non-distended. No rebound or guarding. No organomegaly. Normoactive bowel sounds. MUSCULOSKELETAL Normal range of motion at all joints. No bony deformities or tenderness. No CVA tenderness. EXTREMITIES: No cyanosis. No clubbing. No edema. No calf tenderness. SKIN: +erythema to face, b/l arms, chest/abd/back Warm and dry. Normal capillary refill. No rashes. No jaundice. NEUROLOGICAL: Alert, awake, appropriate. Cranial nerves 2-12 intact. No deficits to light touch and temperature in face, upper extremities and lower extremities. No motor deficits in the in face, upper extremities and lower extremities. Normoreflexic in the upper and lower extremities. Normal speech. Toes are down- going bilaterally. Gait is normal without ataxia. Medical Decision Making - Medical Decision Making 04/08/18 03:38 52-year-old female presents to the emergency department complaining of severe itch but denies shortness of breath or chest pain after smelling her neighbors cooking/fish. Patient states is happen previously when she she smelled her neighbors cooking, she begins to itch all over but denies shortness of breath or throat closing. *DC/Admit/Observation/Transfer Diagnosis at time of Disposition: Acute allergic reaction Qualifiers: Encounter type: initial encounter Qualified Code(s): T78.40XA - Allergy, unspecified, initial encounter - Discharge Dispostion Condition at time of disposition: Fair Decision to Admit order: No - Referrals Referrals: Dion Law MD [Staff Physician] - - Patient Instructions Printed Discharge Instructions: DI for General Allergic Reactions Additional Instructions: Increase fluids Open up your windows to get some fresh air whenever you neighbors cooking Follow-up with your primary care physician Return back to the ER as needed - Post Discharge Activity
[2018-04-08] MEDS ORDERED: SODIUM CHLORIDE 1,000 ML IV STA (01:53)
[2018-04-08] MEDS ORDERED: FAMOTIDINE IV 20 MG/12 ML VIAL IVPUSH SCH (02:00)
[2018-04-08 02:17] VITALS: BP 132/82; PULSE 110; TEMP 98.3; BMI 32.3
[2018-04-08] MEDS ORDERED: FAMOTIDINE 20 MG/50 ML IVPB 20 MG/50 ML MG IVPB ONE (02:17)
[2018-04-08] MEDS ORDERED: methylPREDNISolone NA SUCC 125 MG/2 ML VIAL ONE (02:17)
== END 2018-04-08 04:43 | disposition home or self-care (01) ==
LOC: JER 23:50
DX: T78.40XA Allergy, unspecified, initial encounter (principal)
CPT/HCPCS: 99281-25; J7030

== ENCOUNTER 2018-04-17 09:37 | Emergency (ER) | payer OTHER ==
[2018-04-17 09:46] VITALS: BP 125/87; PULSE 109; TEMP 98.2; BMI 32.3
[2018-04-17] MEDS ORDERED: FAMOTIDINE 20 MG/50 ML IVPB 20 MG/50 ML MG IVPB ONE ×2 (10:12→10:13)
[2018-04-17] MEDS ORDERED: DEXAMETHASONE SOD PHOSPHATE 10 MG/1 ML VIAL IVPUSH ONE (10:12)
[2018-04-17] MEDS ORDERED: DEXAMETHASONE SOD PHOSPHATE 10 MG/1 ML VIAL ONE (10:13)
--- NOTE | 2018-04-17 10:30 | PDOC ---
History of Present Illness - General Chief Complaint: Allergic Reaction Stated Complaint: ALLERGIC REACTION-RASH&ITCHING Time Seen by Provider: 04/17/18 10:05 History Source: Patient Exam Limitations: No Limitations - History of Present Illness Initial Comments: 04/17/18 10:25 pt with allergic reaction after using a different laundry detergent, has rash to the arms. no shortness of breath no diff swallowing or speaking pt has multiple allergies 04/17/18 10:32 Past History - Past Medical History Allergies/Adverse Reactions: Allergies Allergy/AdvReac Type Severity Reaction Status Date / Time epinephrine Allergy Verified 04/17/18 09:42 perfume Allergy Verified 04/17/18 09:42 pistachio nut Allergy Verified 04/17/18 09:42 seafood Allergy Uncoded 04/17/18 09:42 Home Medications: Ambulatory Orders Diphenhydramine [Benadryl Capsule -] 25 mg PO DAILY PRN 02/20/17 Famotidine [Pepcid -] 20 mg PO DAILY #7 tablet 04/17/18 Anemia: Yes Asthma: Yes Cancer: No Cardiac Disorders: Yes CVA: Yes (X2 right sided weakness/numbness) COPD: No CHF: No DVT: No Dementia: No Diabetes: No GI Disorders: No Disorders: No HTN: No Hypercholesterolemia: Yes Liver Disease: No Seizures: No Thyroid Disease: No - Surgical History Abdominal Surgery: No Appendectomy: No Cardiac Surgery: No Cholecystectomy: No Lung Surgery: No Neurologic Surgery: (left ear sx x3, hard of hearing/tonsilectomy) Orthopedic Surgery: No - Immunization History Td Vaccination: Yes Immunization Up to Date: Yes - Suicide/Smoking/Psychosocial Hx Smoking Status: No Smoking History: Never smoked Have you smoked in the past 12 months: No Number of Cigarettes Smoked Daily: 0 Cigars Per Day: 0 Hx Alcohol Use: No Drug/Substance Use Hx: No Substance Use Type: None Hx Substance Use Treatment: No Review of Systems - Review of Systems Able to Perform ROS?: Yes Is the patient limited [place]istanian proficient: No Constitutional: No: Symptoms Reported HEENTM: No: Symptoms Reported Respiratory: No: Symptoms reported Cardiac (ROS): No: Symptoms Reported ABD/GI: No: Symptoms Reported : No: Symptoms Reported Musculoskeletal: No: Symptoms Reported Integumentary: Yes: Symptoms Reported *Physical Exam - Vital Signs Last Vital Signs Temp Pulse Resp BP Pulse Ox 98.2 F 109 H 20 125/87 100 04/17/18 09:42 04/17/18 09:42 04/17/18 09:42 04/17/18 09:42 04/17/18 09:42 - Physical Exam General Appearance: Yes: Nourished, Appropriately Dressed HEENT: positive: EOMI, HALEY. negative: TMs Normal, Pharynx Normal Neck: positive: Supple. negative: Tender Respiratory/Chest: positive: Lungs Clear, Normal Breath Sounds Cardiovascular: positive: Regular Rhythm, Regular Rate Musculoskeletal: positive: Normal Inspection Extremity: positive: Normal Capillary Refill, Normal Inspection, Normal Range of Motion. negative: Tender Integumentary: positive: Rash Neurologic: positive: Fully Oriented, Alert, Normal Mood/Affect, Normal Response , Motor Strength 03/18 ED Treatment Course - Medications Given in the ED: ED Medications Discontinued Medications Generic Name Dose Route Start Last Admin Trade Name Dara PRN Reason Stop Dose Admin Dexamethasone Sodium Phosphate 10 mg 04/17/18 10:12 04/17/18 10:18 Decadron Injection - IVPUSH 04/17/18 10:13 10 mg ONCE ONE Administration Diphenhydramine HCl 25 mg 04/17/18 10:12 04/17/18 10:18 Benadryl Injection - IVPUSH 04/17/18 10:13 25 mg ONCE ONE Administration Medical Decision Making - Medical Decision Making 04/17/18 10:33 cc: allergic reaction started at 1am itching hives took benadryl 50mg at 1am will give IV steroids IV benadryl IV pepcid 04/17/18 13:11 pt re-assessed after meds feels better minimal itching *DC/Admit/Observation/Transfer Diagnosis at time of Disposition: Allergic reaction Qualifiers: Encounter type: initial encounter Qualified Code(s): T78.40XA - Allergy, unspecified, initial encounter - Discharge Dispostion Disposition: HOME Condition at time of disposition: Good - Prescriptions Prescriptions: Famotidine [Pepcid -] 20 mg PO DAILY #7 tablet - Referrals - Patient Instructions Additional Instructions: take pepcid daily next dose tomorrow morning take benadryl 50mg every 6-8hrs for itching follow with the multimedia designer call today to make appointment avoid the laundry detergent wash all your clothes sheets towels in DREFT laundry detergent or one you have used in the past that does not bother your skin - Post Discharge Activity
== END 2018-04-17 11:21 | disposition home or self-care (01) ==
LOC: JERFT 09:37
PROC: 3E033GC Introduction of Other Therapeutic Substance into Peripheral Vein, Percutaneous Approach (ICD-10-PCS; principal; 2018-04-17)
PROC: 3E033GC Introduction of Other Therapeutic Substance into Peripheral Vein, Percutaneous Approach (ICD-10-PCS; 2018-04-17)
PROC: 3E0333Z Introduction of Anti-inflammatory into Peripheral Vein, Percutaneous Approach (ICD-10-PCS; 2018-04-17)
DX: T55.1X1A Toxic effect of detergents, accidental (unintentional), initial encounter (principal); L23.5 Allergic contact dermatitis due to other chemical products; Y92.038 Other place in apartment as the place of occurrence of the external cause
CPT/HCPCS: 96365; 96375; 99281-25; J1100

== ENCOUNTER 2018-10-20 13:19 | Emergency (ER) | payer OTHER ==
[2018-10-20 13:41] VITALS: BP 130/61; PULSE 115; BMI 32.3
--- NOTE | 2018-10-20 14:14 | PDOC ---
History of Present Illness <Florence Tavares - Last Filed: 10/20/18 15:26> - History of Present Illness Initial Comments: 53 year old female with PMH of allergies and asthma presenting with bilateral lower abdominal pain for the past week. Describes the pain as sharp, positional , and intermittent. No obvious exacerbating or relieving factors and it is not prandially related. She still menstruates. Denies fevers, chills, discharge, nausea, vomiting, diarrhea, SOB, chest pain or other symptoms. She was seen at [facility] a few days ago and had negative blood work and abdominal CT with PO contrast. 10/20/18 15:07 <Saran Murry - Last Filed: 10/20/18 19:30> - General Chief Complaint: Pain Stated Complaint: ABD PAIN Time Seen by Provider: 10/20/18 14:12 Past History <Florence Tavares - Last Filed: 10/20/18 15:26> - Past Medical History Anemia: Yes Asthma: Yes Cancer: No Cardiac Disorders: Yes CVA: Yes (X2 right sided weakness/numbness) COPD: No CHF: No DVT: No Dementia: No Diabetes: No GI Disorders: No Disorders: No HTN: No Hypercholesterolemia: Yes Liver Disease: No Seizures: No Thyroid Disease: No - Surgical History Abdominal Surgery: No Appendectomy: No Cardiac Surgery: No Cholecystectomy: No Lung Surgery: No Neurologic Surgery: (left ear sx x3, hard of hearing/tonsilectomy) Orthopedic Surgery: No - Immunization History Td Vaccination: Yes Immunization Up to Date: Yes - Suicide/Smoking/Psychosocial Hx Smoking Status: No Smoking History: Never smoked Have you smoked in the past 12 months: No Number of Cigarettes Smoked Daily: 0 Cigars Per Day: 0 Hx Alcohol Use: No Drug/Substance Use Hx: No Substance Use Type: None Hx Substance Use Treatment: No <Saran Murry - Last Filed: 10/20/18 19:30> - Past Medical History Allergies/Adverse Reactions: Allergies Allergy/AdvReac Type Severity Reaction Status Date / Time epinephrine Allergy Verified 10/20/18 13:38 perfume Allergy Verified 10/20/18 13:38 pistachio nut Allergy Verified 10/20/18 13:38 seafood Allergy Uncoded 10/20/18 13:38 Home Medications: Ambulatory Orders Aspirin [ASA -] 81 mg PO DAILY 06/15/18 Famotidine [Pepcid -] 20 mg PO DAILY PRN #7 tablet 07/24/18 predniSONE [Deltasone -] 40 mg PO DAILY #8 tablet 07/24/18 Review of Systems - Review of Systems Constitutional: No: Chills, Diaphoresis, Fever, Loss of Appetite HEENTM: No: Blurred Vision, Tearing, Cataracts Respiratory: No: Cough, Orthopnea, Shortness of Breath Cardiac (ROS): No: Edema, Irregular Heart Rate ABD/GI: No: Abdominal Distended, Constipated, Diarrhea, Nausea, Vomiting, Abdominal cramping, Tarry Stools : No: Dysuria, Discharge, Frequency Musculoskeletal: No: Joint Pain, Joint Swelling Neurological: No: Numbness, Paresthesia, Tremors Psychiatric: No: Anxiety, Depression Endocrine: No: Flushing, Intolerance to Cold Hematologic/Lymphatic: No: Anemia, Blood Clots, Easy Bleeding <Saran Murry - Last Filed: 10/20/18 19:30> *Physical Exam - Vital Signs Last Vital Signs Temp Pulse Resp BP Pulse Ox 115 H 20 130/61 99 10/20/18 13:38 10/20/18 13:38 10/20/18 13:38 10/20/18 13:38 - Physical Exam Comments: 10/20/18 15:01 10/20/18 15:25 <Florence Tavares - Last Filed: 10/20/18 15:26> - Vital Signs Last Vital Signs Temp Pulse Resp BP Pulse Ox 115 H 20 130/61 99 10/20/18 13:38 10/20/18 13:38 10/20/18 13:38 10/20/18 13:38 - Physical Exam General Appearance: Yes: Nourished, Appropriately Dressed. No: Apparent Distress HEENT: positive: EOMI, HALEY, Normal ENT Inspection, Normal Voice Neck: positive: Trachea midline, Normal Thyroid, Supple. negative: Tender, Rigid Respiratory/Chest: positive: Lungs Clear, Normal Breath Sounds. negative: Chest Tender, Respiratory Distress, Accessory Muscle Use Gastrointestinal/Abdominal: positive: Normal Bowel Sounds, Tender (bilateral lower quadrant tenderness, left greater than right), Flat, Soft Lymphatic: negative: Adenopathy, Tenderness Musculoskeletal: positive: Normal Inspection. negative: CVA Tenderness Extremity: positive: Normal Capillary Refill, Normal Inspection, Normal Range of Motion. negative: Tender Integumentary: positive: Normal Color, Dry, Warm Neurologic: positive: dining room host/hostess II-XII NML intact, Fully Oriented, Alert, Normal Mood/ Affect, Normal Response, Motor Strength 5/5 <Saran Murry - Last Filed: 10/20/18 19:30> Moderate Sedation - Procedure Monitoring Vital Signs: Procedure Monitoring Vital Signs Temperature Pulse Rate 115 H 10/20/18 13:38 Respiratory Rate 20 10/20/18 13:38 Blood Pressure 130/61 10/20/18 13:38 O2 Sat by Pulse Oximetry (%) 99 10/20/18 13:38 <Florence Tavares - Last Filed: 10/20/18 15:26> - Procedure Monitoring Vital Signs: Procedure Monitoring Vital Signs Temperature Pulse Rate 115 H 10/20/18 13:38 Respiratory Rate 20 10/20/18 13:38 Blood Pressure 130/61 10/20/18 13:38 O2 Sat by Pulse Oximetry (%) 99 10/20/18 13:38 <Saran Murry - Last Filed: 10/20/18 19:30> ED Treatment Course - RADIOLOGY Radiology Studies Ordered: Category Date Time Status TRANSVAGINAL ULTRASOUND US [US] Stat Ultrasound 10/20/18 14:47 Ordered <Florence Tavares - Last Filed: 10/20/18 15:26> - LABORATORY CBC & Chemistry Diagram: 10/20/18 15:45 10/20/18 15:45 <Saran Murry - Last Filed: 10/20/18 19:30> Medical Decision Making - Medical Decision Making 10/20/18 14:58 id in fact have a ct a/p wihtout iv contrast demonstrating left ovariany cyst. 10/20/18 15:26 <Florence Tavares - Last Filed: 10/20/18 15:26> - Medical Decision Making 53 year old female with one week of lower cramping / sharp positional abdominal pain that occasionally radiates down the thigh. Labs WNL and UA negative, ultrasound showing small left sided cyst. I suspect this is msk in nature given worse with leg movement and radiation down anterior thighs. Will DC with return precautions and roll icer follow up. 10/20/18 19:23 <Saran Murry - Last Filed: 10/20/18 19:30> *DC/Admit/Observation/Transfer <Florence Tavares - Last Filed: 10/20/18 15:26> - Discharge Dispostion Decision to Admit order: No <Saran Murry - Last Filed: 10/20/18 19:30> Diagnosis at time of Disposition: Abdominal pain Qualifiers: Abdominal location: lower abdomen, unspecified Qualified Code(s): R10.30 - Lower abdominal pain, unspecified - Discharge Dispostion Disposition: HOME Condition at time of disposition: Improved - Referrals Referrals: Carmen Nino [Primary Care Provider] - Mary Mcdonough MD [Staff Physician] - Justin Raya MD [Staff Physician] - - Patient Instructions Printed Discharge Instructions: DI for Abdominal Pain-Adult Additional Instructions: You do have small ovarian cysts. Please follow up with gynecology and gastroenterology next week. You can use Tylenol for the pain. Please return to the ED if you have any new or worsening symptoms.
[2018-10-20] MEDS ORDERED: SODIUM CHLORIDE 0.9% 1000 ML INFUS.BAG IV ONE (14:48)
--- NOTE | 2018-10-20 15:26 | PDOC ---
Attending Attestation - HPI HPI: This patient is a 53 year old female with PMHx of allergies (seafood) and asthma who presents with worsening lower abdominal pain for the past week. She describes the pain as sharp, positional, and intermittent. She states that she was seen at [facility] yesterday and received a non contrast CT. They told her that she had a left ovarian cyst but states that they did not find anything acutely wrong with her. She denies any exacerbating or relieving factors. She denies any nausea, vomiting, dysuria, hematuria, Surgical Hx: Denies 10/20/18 16:01 <Teresa Isaac - Last Filed: 10/20/18 16:01> - Resident Resident Name: Saran Murry - ED Attending Attestation I have performed the following: I have examined & evaluated the patient, The case was reviewed & discussed with the resident, I agree w/resident's findings & plan, Exceptions are as noted - Physicial Exam PE: 10/20/18 15:26 on exam pt awak alert lungs clear bilaterally heart rrr no mrg abd soft bilat lower quad ttp, suprapubic ttp. left greater than right. no rebound no guarding. no cva tendernss. ext wwp no edema. no calf tenderness. alert oriented x 3. - Medical Decision Making 10/20/18 15:26 53 yo F with h/o allergic dermatitis, HTN, here with c/o lower abd pain. patient states she has had it for several days. no n/v no urinary complaints pain is worse with lyging and walking. was seen at [facility], yesterday, unsure if had imaging or not. drank some oral medicine. states pain is too severe so here. no h/o renal colic. differential diveritculitis, renal colic, uti pyelo, colitis, ovarian pathology. plan tvus. ct a/p eval diverticulitis pain control labs and ua. 10/20/18 15:[address] Power Mishra, at [facility] states pt was seen day prior did not have imaging. will obtain ct a/p today. 10/20/18 15:20 dr Mishra, from [facility], return call. pt did have a ct a/p without contrast, which revealed a left ovarian cyst. 10/20/18 18:32 pt us with small follicular cyst left side 1.5cm. no free fluid. labs pending. pt asking to eat. likely pain due to possible ruptured cyst. ct report obtained from [facility]. no diverticulitis or colitis. report faxed to [facility]. pt trial po tolerated well. if labs normal will dc home with gi follow up and senior marketing associate followup. 10/20/18 19:25 labs unremarkalbe. us with small cyst. pt given toradol. urine negative for infection. <Florence Tavares - Last Filed: 10/20/18 19:25>
[2018-10-20 16:02] LABS: URINE APPEARANCE CLEAR; URINE BILIRUBIN NEGATIVE (<2.0 mg/dL); URINE COLOR LTYELLOW; URINE GLUCOSE (UA) NEGATIVE (NEGATIVE); URINE KETONE NEGATIVE (NEGATIVE); URINE LEUK ESTERASE NEGATIVE (NEGATIVE); URINE NITRITE NEGATIVE (NEGATIVE); URINE PROTEIN NEGATIVE (NEGATIVE); URINE UROBILINOGEN NEGATIVE mg/dL (0.2-1.0)
[2018-10-20] MEDS ORDERED: KETOROLAC TROMETHAMINE 30 MG/1 ML VIAL IVPUSH ONE (18:32)
[2018-10-20 18:47] LABS: BASO % 0.7 % (0-2.0); EOS % 7.6 % (0-4.5); HEMATOCRIT 36.4 % (32.4-45.2); HEMOGLOBIN 12.4 GM/dL (10.7-15.3); LYMPH % 9.9 % (8-40); MCH 30.5 pg (25.7-33.7); MCHC 34.1 g/dl (32.0-36.0); MEAN CELL VOLUME 89.4 fl (80-96); MEAN PLT VOLUME 10.1 fl (7.5-11.1); MONO % 9.5 % (3.8-10.2); NEUT % 72.3 % (42.8-82.8); PLATELET COUNT 233 K/MM3 (134-434); RBC 4.08 M/mm3 (3.60-5.2); RDW 16.1 % (11.6-15.6); WHITE BLOOD COUNT 8.5 K/mm3 (4.0-10.0)
[2018-10-20] MEDS ORDERED: KETOROLAC TROMETHAMINE 30 MG/1 ML VIAL ONE (19:10)
[2018-10-20 19:11] LABS: ALBUMIN 3.2 g/dl (3.4-5.0); ALK PHOS 88 U/L (45-117); ANION GAP 9 MMOL/L (8-16); BILIRUBIN,TOTAL 0.3 mg/dL (0.2-1); BLOOD UREA NITROGEN 11 mg/dL (7-18); CHLORIDE 107 mmol/L (98-107); CO2 25 mmol/L (21-32); CREATININE 0.7 mg/dL (0.55-1.3); GLUCOSE,RANDOM 74 mg/dL (74-106); POTASSIUM 3.9 mmol/L (3.5-5.1); SGOT/AST 22 U/L (15-37); SGPT/ALT 26 U/L (13-61); SODIUM 141 mmol/L (136-145); TOT PROT 6.6 g/dl (6.4-8.2)
[2018-10-20 19:23] LABS: INR 1.1 (0.83-1.09)
[2018-10-20 19:26] LABS: ACTIVATED PTT 29.9 SECONDS (25.2-36.5)
== END 2018-10-20 20:10 | disposition home or self-care (01) ==
LOC: JER 13:19
PROC: 3E0337Z Introduction of Electrolytic and Water Balance Substance into Peripheral Vein, Percutaneous Approach (ICD-10-PCS; principal; 2018-10-20)
PROC: 3E033GC Introduction of Other Therapeutic Substance into Peripheral Vein, Percutaneous Approach (ICD-10-PCS; 2018-10-20)
PROC: 3E0333Z Introduction of Anti-inflammatory into Peripheral Vein, Percutaneous Approach (ICD-10-PCS; 2018-10-20)
DX: R10.30 Lower abdominal pain, unspecified (principal)
CPT/HCPCS: 36415; 76830-TC; 80053; 81003; 85025; 85610; 85730; 96374; 96375; 99282-25; J7030

== ENCOUNTER 2019-04-04 09:21 | Emergency (ER) | payer OTHER ==
[2019-04-04 09:36] VITALS: BP 140/84; PULSE 119; TEMP 98.2; BMI 32.3
[2019-04-04] MEDS ORDERED: methylPREDNISolone NA SUCC 125 MG/2 ML VIAL IM ONE (10:00)
[2019-04-04] MEDS ORDERED: FAMOTIDINE 20 MG/50 ML IVPB 20 MG/50 ML MG IVPB ONE ×2 (10:01→10:08)
[2019-04-04] MEDS ORDERED: methylPREDNISolone NA SUCC 125 MG/2 ML VIAL IVPUSH ONE (10:03)
--- NOTE | 2019-04-04 10:04 | PDOC ---
*Physical Exam - Vital Signs Last Vital Signs Temp Pulse Resp BP Pulse Ox 98.2 F 119 H 17 140/84 99 04/04/19 09:24 04/04/19 09:24 04/04/19 09:24 04/04/19 09:24 04/04/19 09:24 - Physical Exam Comments: 04/04/19 10:03 The patient was examined by [PAVEL Slater] under my direct supervision. I personally evaluated the patient. I concur with the above findings and the plan of care. *DC/Admit/Observation/Transfer - Referrals Referrals: Carmen Nino [Primary Care Provider] - - Patient Instructions - Post Discharge Activity
[2019-04-04] MEDS ORDERED: methylPREDNISolone NA SUCC 125 MG/2 ML VIAL ONE (10:08)
--- NOTE | 2019-04-04 10:17 | PDOC ---
History of Present Illness - General Chief Complaint: Allergic Reaction Stated Complaint: ALLERGIC REACTION Time Seen by Provider: 04/04/19 09:57 History Source: Patient Exam Limitations: Clinical Condition - History of Present Illness Initial Comments: 04/04/19 10:15 Patient with no significant past medical history present with complaint of diffuse hives all over the body after using new soap which started 30 minutes ago. Patient denies choking sensation, shortness of breath, throat or lip swelling. Denies tongue swelling. Patient reported has similar episode in the past and usually resolve with IV Benadryl, Solu-Medrol and Pepcid. Denies any other symptoms Timing/Duration: 1/2 hour Past History - Past Medical History Allergies/Adverse Reactions: Allergies Allergy/AdvReac Type Severity Reaction Status Date / Time epinephrine Allergy Verified 04/04/19 09:24 perfume Allergy Verified 04/04/19 09:24 pistachio nut Allergy Verified 04/04/19 09:24 seafood Allergy Uncoded 04/04/19 09:24 Home Medications: Ambulatory Orders Aspirin [ASA -] 81 mg PO DAILY 06/15/18 Famotidine [Pepcid -] 20 mg PO DAILY PRN #7 tablet 07/24/18 predniSONE [Deltasone -] 40 mg PO DAILY #8 tablet 07/24/18 Hydroxyzine HCl 25 mg PO Q8H PRN #12 tablet 04/04/19 predniSONE [Deltasone -] 20 mg PO BID 5 Days #10 tablet 04/04/19 Anemia: Yes Asthma: Yes Cancer: No Cardiac Disorders: Yes CVA: Yes (X2 right sided weakness/numbness) COPD: No CHF: No DVT: No Dementia: No Diabetes: No GI Disorders: No Disorders: No HTN: No Hypercholesterolemia: Yes Liver Disease: No Seizures: No Thyroid Disease: No - Surgical History Abdominal Surgery: No Appendectomy: No Cardiac Surgery: No Cholecystectomy: No Lung Surgery: No Neurologic Surgery: (left ear sx x3, hard of hearing/tonsilectomy) Orthopedic Surgery: No - Immunization History Td Vaccination: Yes Immunization Up to Date: Yes - Suicide/Smoking/Psychosocial Hx Smoking Status: No Smoking History: Never smoked Have you smoked in the past 12 months: No Number of Cigarettes Smoked Daily: 0 Cigars Per Day: 0 Information on smoking cessation initiated: No Hx Alcohol Use: No Drug/Substance Use Hx: No Substance Use Type: None Hx Substance Use Treatment: No Review of Systems - Review of Systems Able to Perform ROS?: Yes Is the patient limited [place]ese proficient: No Constitutional: No: Malaise, Weakness HEENTM: Yes: See HPI. No: Symptoms Reported, Difficulty Swallowing, Mouth Swelling Respiratory: No: Symptoms reported, See HPI, Cough, Orthopnea, Shortness of Breath, SOB with Exertion, SOB at Rest, Stridor, Wheezing, Productive cough, Hemoptysis, Other Cardiac (ROS): No: Symptoms Reported, See HPI, Chest Pain, Edema, Irregular Heart Rate, Lightheadedness, Palpitations, Syncope, Chest Tightness, Other Integumentary: Yes: Pruritus, Rash (hives all over) Neurological: No: Dizziness All Other Systems: Reviewed and Negative *Physical Exam - Vital Signs Last Vital Signs Temp Pulse Resp BP Pulse Ox 98.2 F 119 H 17 140/84 99 04/04/19 09:24 04/04/19 09:24 04/04/19 09:24 04/04/19 09:24 04/04/19 09:24 - Physical Exam Comments: 04/04/19 10:13 GENERAL: Well developed, well nourished. Awake and alert. No acute distress. HEENT: Normocephalic, atraumatic. PERRLA, EOMI. No conjunctival pallor. Sclera are non-icteric. Moist mucous membranes. Oropharynx is clear. Throat patent NECK: Supple. Full ROM. CARDIOVASCULAR: Regular rate and rhythm. No murmurs, rubs, or gallops. Distal pulses are 2+ and symmetric. PULMONARY: No evidence of respiratory distress. MUSCULOSKELETAL Normal range of motion at all joints. SKIN: Warm and dry. Normal capillary refill. Diffused urticarial rash all over the body w/o excoriations NEUROLOGICAL: Alert, awake, appropriate. Gait is normal without ataxia. PSYCHIATRIC: Cooperative. Good eye contact. Appropriate mood General Appearance: Yes: Nourished, Appropriately Dressed. No: Apparent Distress ED Treatment Course - Medications Given in the ED: ED Medications Discontinued Medications Generic Name Dose Route Start Last Admin Trade Name Freq PRN Reason Stop Dose Admin Methylprednisolone Sodium Succinate 125 mg 04/04/19 10:00 04/04/19 10:05 Solu-Medrol - IM 04/04/19 10:01 Not Given ONCE ONE Medical Decision Making - Medical Decision Making 04/04/19 10:16 Patient with no significant past medical history present with complaint of diffuse hives all over the body after using new soap which started 30 minutes ago. Patient denies choking sensation, shortness of breath, throat or lip swelling. Denies tongue swelling. Patient reported has similar episode in the past and usually resolve with IV Benadryl, Solu-Medrol and Pepcid. Denies any other symptoms Exam significant for diffuse maculopapular urticarial rash globally without excoriations. Symptoms likely ALLERGIC reaction. Benadryl 50 mg IV, Solu-Medrol 125 mg IV and Pepcid 20 mg IV ordered. Reassess after 20 minutes 04/04/19 11:02 Patient report improved symptoms after benadyl. pepcid and solumedrol and request to discharge. Improvement in hives and stable for discharge *DC/Admit/Observation/Transfer Diagnosis at time of Disposition: Allergic reaction Qualifiers: Encounter type: initial encounter Qualified Code(s): T78.40XA - Allergy, unspecified, initial encounter - Discharge Dispostion Disposition: HOME Condition at time of disposition: Stable Decision to Admit order: No - Prescriptions Prescriptions: Hydroxyzine HCl 25 mg PO Q8H PRN #12 tablet PRN Reason: hives and itching predniSONE [Deltasone -] 20 mg PO BID 5 Days #10 tablet - Referrals Referrals: Carmen Nino [Primary Care Provider] - - Patient Instructions Printed Discharge Instructions: DI for Hives Additional Instructions: Stop using soap. Take benadryl as needed for allergic reaction. Take prescribed anti-histamine as needed for hives. Come back to ED if worsening symptoms - Post Discharge Activity
== END 2019-04-04 11:24 | disposition home or self-care (01) ==
LOC: JER 09:21
PROC: 3E033GC Introduction of Other Therapeutic Substance into Peripheral Vein, Percutaneous Approach (ICD-10-PCS; principal; 2019-04-04)
DX: T78.40XA Allergy, unspecified, initial encounter (principal); J45.909 Unspecified asthma, uncomplicated; E78.00 Pure hypercholesterolemia, unspecified; I51.9 Heart disease, unspecified; Z86.73 Personal history of transient ischemic attack (TIA), and cerebral infarction without residual deficits
CPT/HCPCS: 96365; 96375; 99282-25

== ENCOUNTER 2019-07-31 17:38 | Emergency (ER) | payer OTHER | END 2019-07-31 20:22 | disposition home or self-care (01) | LOC: JER 17:38 → JERFT 20:22 ==

== ENCOUNTER 2019-08-14 10:39 | Emergency (ER) | payer OTHER ==
[2019-08-14 10:58] VITALS: BP 128/74; PULSE 92; TEMP 97; BMI 32.1
--- NOTE | 2019-08-14 11:01 | PDOC ---
History of Present Illness - General Chief Complaint: Allergic Reaction Stated Complaint: RASH Time Seen by Provider: 08/14/19 11:00 - History of Present Illness Initial Comments: 08/14/19 11:01 Ms. Beckwith is a 53 yo female w/ pmh of [facility] severe allergies w/ multiple visits to this ER for allergic reaction, urticaria, and asthma who presents for evaluation of diffuse rash and itchiness to her upper extremities and trunk after helping a friend move directly before presentation. She denies eating or drinking anything that may have lead to this however reports she was exposed to a lot of dust at the type. Denies any other symptoms and reports she is breathing without difficulty. Main complaint is itchiness. The patient denies chest pain, shortness of breath, headache and dizziness. Denies fever, chills, nausea, vomit, diarrhea and constipation. Denies dysuria, frequency, urgency and hematuria. Past History - Past Medical History Allergies/Adverse Reactions: Allergies Allergy/AdvReac Type Severity Reaction Status Date / Time epinephrine Allergy Verified 08/14/19 10:58 perfume Allergy Verified 08/14/19 10:58 pistachio nut Allergy Verified 08/14/19 10:58 seafood Allergy Uncoded 08/14/19 10:58 Home Medications: Ambulatory Orders Diphenhydramine HCl [Benadryl -] 25 mg PO Q6H #28 capsule 07/31/19 predniSONE [Deltasone -] 40 mg PO DAILY #6 tablet 08/14/19 Anemia: Yes Asthma: Yes Cancer: No Cardiac Disorders: Yes CVA: Yes (X2 right sided weakness/numbness) COPD: No CHF: No DVT: No Dementia: No Diabetes: No GI Disorders: No Disorders: No HTN: No Hypercholesterolemia: Yes Liver Disease: No Seizures: No Thyroid Disease: No - Surgical History Abdominal Surgery: No Appendectomy: No Cardiac Surgery: No Cholecystectomy: No Lung Surgery: No Neurologic Surgery: (left ear sx x3, hard of hearing/tonsilectomy) Orthopedic Surgery: No - Immunization History Td Vaccination: Yes Immunization Up to Date: Yes - Psycho Social/Smoking Cessation Hx Smoking Status: No Smoking History: Unknown if ever smoked Have you smoked in the past 12 months: No Number of Cigarettes Smoked Daily: 0 Cigars Per Day: 0 Information on smoking cessation initiated: No Hx Alcohol Use: No Drug/Substance Use Hx: No Substance Use Type: None Hx Substance Use Treatment: No Review of Systems - Review of Systems Comments:: 08/14/19 11:01 GENERAL/CONSTITUTIONAL: No fever or chills. No weakness. HEAD, EYES, EARS, NOSE AND THROAT: No change in vision. No ear pain or discharge. No sore throat. CARDIOVASCULAR: No chest pain or shortness of breath RESPIRATORY: No cough, wheezing, or hemoptysis. GASTROINTESTINAL: No nausea, vomiting, diarrhea or constipation. GENITOURINARY: No dysuria, frequency, or change in urination. MUSCULOSKELETAL: No joint or muscle swelling or pain. No neck or back pain. SKIN: No rash NEUROLOGIC: No headache, vertigo, loss of consciousness, or change in strength/ sensation. ENDOCRINE: No increased thirst. No abnormal weight change HEMATOLOGIC/LYMPHATIC: No anemia, easy bleeding, or history of blood clots. ALLERGIC/IMMUNOLOGIC: +Itching rash to upper extremities and trunk as reported. *Physical Exam - Vital Signs Last Vital Signs Temp Pulse Resp BP Pulse Ox 97 F L 92 H 19 128/74 100 08/14/19 10:54 08/14/19 10:54 08/14/19 10:54 08/14/19 10:54 08/14/19 10:54 - Physical Exam Comments: 08/14/19 11:01 GENERAL: Awake, alert, and fully oriented, in no acute distress HEAD: No signs of trauma, normocephalic, atraumatic EYES: PERRLA, EOMI, sclera anicteric, conjunctiva clear ENT: Auricles normal inspection, hearing grossly normal, nares patent, oropharynx clear without exudates. Moist mucosa NECK: Normal ROM, supple, no lymphadenopathy, JVD, or masses LUNGS: No distress, speaks full sentences, clear to auscultation bilaterally HEART: Regular rate and rhythm, normal S1 and S2, no murmurs, rubs or gallops, peripheral pulses normal and equal bilaterally. ABDOMEN: Soft, nontender, normoactive bowel sounds. No guarding, no rebound. No masses EXTREMITIES: Normal inspection, Normal range of motion, no edema. No clubbing or cyanosis. NEUROLOGICAL: Cranial nerves II through XII grossly intact. Normal speech, normal gait, no focal sensorimotor deficits SKIN: +Urticarial rash noted extensively to upper extremities and trunk. Warm, Dry, normal turgor. Medical Decision Making - Medical Decision Making 08/14/19 12:45 Ms. Beckwith is a 53 yo female w/ pmh as described who presents for evaluation of allergic reaction. Patient given benadryl and solumedrol IV for treatment. Patient observed in ED for 2 hours w/ improvement of symptoms. Per patient she is much less itchy and hives have visibly resolved somewhat. Airway remains patent with lungs clear to auscultation bilaterally. Patient safe for discharge and outpatient follow-up at this time. Discharging to home. Discharge - Discharge Information Problems reviewed: Yes Clinical Impression/Diagnosis: Allergic reaction Qualifiers: Encounter type: initial encounter Qualified Code(s): T78.40XA - Allergy, unspecified, initial encounter Disposition: HOME - Follow up/Referral - Patient Discharge Instructions Patient Printed Discharge Instructions: DI for General Allergic Reactions Additional Instructions: You were evaluated today in the ER for your allergic reaction. We gave you IV benadryl and steroids and your symptoms improved. No other concerning findings were found at this time and we believe you are safe for discharge. Please follow -up with primary care provider for further evaluation. Return to ER if any shortness of breath, fevers, chills, or other concerning symptoms. - Post Discharge Activity
[2019-08-14] MEDS ORDERED: methylPREDNISolone NA SUCC 125 MG/2 ML VIAL IVPB ONE (11:04)
[2019-08-14] MEDS ORDERED: methylPREDNISolone NA SUCC 125 MG/2 ML VIAL ONE (11:07)
--- NOTE | 2019-08-14 11:16 | PDOC ---
Attending Attestation - Resident Resident Name: Martell Shah - ED Attending Attestation I have performed the following: I have examined & evaluated the patient, The case was reviewed & discussed with the resident, I agree w/resident's findings & plan, Exceptions are as noted - HPI HPI: 08/14/19 11:15 53y F hx of asthma presenst with itchy rash starting approx 10 miin prior to arrival. pt was helping her friend move and it was extremely yani. Pt notes an itchy rash on her face/upper body - denies any sob, wheezing, abd pain, n/v, dizziness/lightehadedness. Pt endorses similar reactions before to other triggers. Exam: general: no acute distress HEENT: airway patent, speaking complete sentences pulm: cta b/l abd soft notnender card: rrr, no mrg ext: no edema skin: blanching erythemadous plaques to upper extremities/chest and face suspect hives/cutaneous reaction will treat with solumedrol / beandryl will reassess, no signs of shock/anaphylaxis will continue to monitor - Physicial Exam PE: 08/14/19 12:52 see above - Medical Decision Making 08/14/19 12:51 pt feeling improved no other systemic invovlvement will dc with supportive care and steroids/benadryl return precautiosn were dsicussed
== END 2019-08-14 13:23 | disposition home or self-care (01) ==
LOC: JER 10:39
PROC: 3E033GC Introduction of Other Therapeutic Substance into Peripheral Vein, Percutaneous Approach (ICD-10-PCS; principal; 2019-08-14)
PROC: 3E0333Z Introduction of Anti-inflammatory into Peripheral Vein, Percutaneous Approach (ICD-10-PCS; 2019-08-14)
DX: I69.851 Hemiplegia and hemiparesis following other cerebrovascular disease affecting right dominant side (principal); T78.40XA Allergy, unspecified, initial encounter; E78.00 Pure hypercholesterolemia, unspecified; X58.XXXA Exposure to other specified factors, initial encounter; Z91.013 Allergy to seafood; Z91.018 Allergy to other foods
CPT/HCPCS: 96374; 96375; 99282-25

== ENCOUNTER 2019-09-01 00:41 | Emergency (ER) | payer OTHER ==
[2019-09-01 00:50] VITALS: TEMP 98
[2019-09-01] MEDS ORDERED: FAMOTIDINE 20 MG/50 ML IVPB 20 MG/50 ML MG IVPB ONE ×2 (00:52→00:59)
[2019-09-01] MEDS ORDERED: methylPREDNISolone NA SUCC 125 MG/2 ML VIAL IVPUSH ONE (00:52)
--- NOTE | 2019-09-01 00:53 | PDOC ---
History of Present Illness - General Chief Complaint: Allergic Reaction Stated Complaint: ALLERGIC REACTION Time Seen by Provider: 09/01/19 00:52 History Source: Patient Exam Limitations: No Limitations - History of Present Illness Initial Comments: 09/01/19 00:52 Priscilla Past History - Past Medical History Allergies/Adverse Reactions: Allergies Allergy/AdvReac Type Severity Reaction Status Date / Time epinephrine Allergy Verified 09/01/19 00:48 perfume Allergy Verified 09/01/19 00:48 pistachio nut Allergy Verified 09/01/19 00:48 seafood Allergy Uncoded 09/01/19 00:48 Home Medications: Ambulatory Orders Diphenhydramine HCl [Benadryl -] 25 mg PO Q6H #28 capsule 07/31/19 predniSONE [Deltasone -] 40 mg PO DAILY #6 tablet 08/14/19 Anemia: Yes Asthma: Yes Cancer: No Cardiac Disorders: Yes CVA: Yes (X2 right sided weakness/numbness) COPD: No CHF: No DVT: No Dementia: No Diabetes: No GI Disorders: No Disorders: No HTN: No Hypercholesterolemia: Yes Liver Disease: No Seizures: No Thyroid Disease: No - Surgical History Abdominal Surgery: No Appendectomy: No Cardiac Surgery: No Cholecystectomy: No Lung Surgery: No Neurologic Surgery: (left ear sx x3, hard of hearing/tonsilectomy) Orthopedic Surgery: No - Immunization History Td Vaccination: Yes Immunization Up to Date: Yes - Psycho Social/Smoking Cessation Hx Smoking Status: No Smoking History: Unknown if ever smoked Have you smoked in the past 12 months: No Number of Cigarettes Smoked Daily: 0 Cigars Per Day: 0 Information on smoking cessation initiated: No Hx Alcohol Use: No Drug/Substance Use Hx: No Substance Use Type: None Hx Substance Use Treatment: No *Physical Exam - Vital Signs Last Vital Signs Temp Pulse Resp BP Pulse Ox 98.0 F 116 H 20 137/89 100 09/01/19 00:48 09/01/19 00:48 09/01/19 00:48 09/01/19 00:48 09/01/19 00:48
[2019-09-01] MEDS ORDERED: methylPREDNISolone NA SUCC 125 MG/2 ML VIAL ONE (00:58)
--- NOTE | 2019-09-01 01:13 | PDOC ---
History of Present Illness - General Chief Complaint: Allergic Reaction Stated Complaint: ALLERGIC REACTION Time Seen by Provider: 09/01/19 00:52 History Source: Patient Exam Limitations: No Limitations - History of Present Illness Initial Comments: 09/01/19 00:57 HPI: 53yo F PMH asthma and multiple allergic reactions (epinephrine, perfumes, soaps, pistachios, seafood) presenting with diffuse pruritus / rash immediately after using a new ivory soap. Endorses mild nausea, no emesis. Denies any difficulty breathing or mouth/throat/facial swelling. Patient endorses daily diphehydramine (25mg) as only home medication - last taken at 8PM this evening. Took Tylenol for the pain of her reaction and took a taxi to the ED. She denies ever having anaphylaxis, throat swelling, or intubation, but reports an epinephrine allergy discovered when it was administered here at [place] 5-6 years ago and she became "paralyzed" for several hours. 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 No fevers / chills / chest pain / shortness of breath / cough / diarrhea / constipation / urinary / bowel symptoms. Patient aware of exposures, only change has been ivory soap. Used to have an group exercise manager as a child , has not been to one recently but does have a referral. All: as above Meds: Benadryl PMH: as above +L ear deafness PSH: multiple surgeries on left ear Past History - Travel Traveled outside of the country in the last 30 days: No Close contact w/someone who was outside of country & ill: No - Past Medical History Allergies/Adverse Reactions: Allergies Allergy/AdvReac Type Severity Reaction Status Date / Time epinephrine Allergy Verified 09/01/19 00:48 perfume Allergy Verified 09/01/19 00:48 pistachio nut Allergy Verified 09/01/19 00:48 seafood Allergy Uncoded 09/01/19 00:48 Home Medications: Ambulatory Orders Diphenhydramine HCl [Benadryl -] 25 mg PO Q6H #28 capsule 07/31/19 predniSONE [Deltasone -] 40 mg PO DAILY #6 tablet 08/14/19 Anemia: Yes Asthma: Yes Cancer: No Cardiac Disorders: Yes CVA: Yes (X2 right sided weakness/numbness) COPD: No CHF: No DVT: No Dementia: No Diabetes: No GI Disorders: No Disorders: No HTN: No Hypercholesterolemia: Yes Liver Disease: No Seizures: No Thyroid Disease: No - Surgical History Abdominal Surgery: No Appendectomy: No Cardiac Surgery: No Cholecystectomy: No Lung Surgery: No Neurologic Surgery: (left ear sx x3, hard of hearing/tonsilectomy) Orthopedic Surgery: No - Immunization History Td Vaccination: Yes Immunization Up to Date: Yes - Psycho Social/Smoking Cessation Hx Smoking Status: No Smoking History: Unknown if ever smoked Have you smoked in the past 12 months: No Number of Cigarettes Smoked Daily: 0 Cigars Per Day: 0 Information on smoking cessation initiated: No Hx Alcohol Use: No Drug/Substance Use Hx: No Substance Use Type: None Hx Substance Use Treatment: No Review of Systems - Review of Systems Able to Perform ROS?: Yes Is the patient limited Arabic proficient: Yes Constitutional: No: Chills, Diaphoresis, Fever HEENTM: No: Eye Pain, Nose Pain, Nose Congestion, Throat Pain, Throat Swelling, Mouth Swelling Respiratory: No: Cough, Shortness of Breath, Wheezing Cardiac (ROS): No: Chest Pain, Edema, Irregular Heart Rate, Lightheadedness, Palpitations, Syncope, Chest Tightness ABD/GI: No: Constipated, Diarrhea, Nausea, Vomiting, Indigestion : No: Burning, Dysuria, Discharge, Incontinence, Pain Musculoskeletal: No: Gout, Muscle Pain, Muscle Weakness Integumentary: Yes: See HPI, Erythema, Pruritus, Rash (erytheamtous, diffuse across torso, UE, abdomen, some on bilateral LE) Neurological: No: Headache, Numbness, Tingling Psychiatric: No: Frequent Crying, Stressors, Change in Appetite Endocrine: No: Excessive Sweating, Flushing, Change in Weight Hematologic/Lymphatic: No: Anemia, Blood Clots, Easy Bleeding, Easy Bruising All Other Systems: Reviewed and Negative *Physical Exam - Vital Signs Last Vital Signs Temp Pulse Resp BP Pulse Ox 98.0 F 116 H 20 137/89 100 09/01/19 00:48 09/01/19 00:48 09/01/19 00:48 09/01/19 00:48 09/01/19 00:48 - Physical Exam Comments: 09/01/19 01:23 Vitals reviewed, notable for tachycardia to the 110s, otherwise AF, HDS WDWN woman, no acute distress - appears anxious, pacing / walking around hospital room MMM, EOMI, no oral/facial swelling noted, trachea midline RRR, nl s1s2, no murmurs appreciated CTABL, normal WOB, no wheezes / rales / rhonchi Soft, nontender, nondistended WWP, no clubbing / cyanosis / edema Skin with erythematous papules on chest, abdomen, back, and UE - some on LE Alert and oriented, CN grossly intact, MAEE, normal strength and sensation grossly throughout Medical Decision Making - Medical Decision Making 09/01/19 01:24 53yo F with allergic Hx presenting with acute allergic reaction to a new soap. Notable for diffuse papules on an erythematous base c/w regions of soap use. No signs of other system involvement other than mild nausea - will continue to monitor. Also notable for tachycardia and apparent anxiety. No Pulmonary, GI, Neuro, or Circulatory manifestations evident at the current time making anaphylaxis unlikely. Patient will be observed for at least 3 hours in the department prior to discharge. -Diphehydramine, Pepcid, Methylprednisone -IVF 09/01/19 01:[address] Godoy Discharge - Discharge Information Problems reviewed: Yes Clinical Impression/Diagnosis: Acute allergic reaction Qualifiers: Encounter type: initial encounter Qualified Code(s): T78.40XA - Allergy, unspecified, initial encounter Condition: Improved Disposition: HOME - Admission No - Follow up/Referral Referrals: Ye Grant MD [Primary Care Provider] - Luba Hankins MD [Staff Physician] - Edd Hoyt [Staff Physician] - - Patient Discharge Instructions Patient Printed Discharge Instructions: DI for General Allergic Reactions Additional Instructions: You were seen and evaluated in the [facility] ED for an allergic reaction. Thank you for coming in. Please discard the soap that you identified as the likely cause of your reaction. Follow up with your primary care doctor on Tuesday and attempt to see an group exercise manager within the next week. You can use the referral you already have or call any on the list provided. Please note that allergists often need you to discontinue antihistamines before going in so that their testing will work. Please be sure you discuss/ask about this when making your appointment to expedite your care. Please return to the emergency department for any new or concerning symptoms including but not limited to: difficulty breathing, changes in your mental status / thinking, persistent nausea and vomiting, or worsening rash. - Post Discharge Activity
[2019-09-01] MEDS ORDERED: SODIUM CHLORIDE 1,000 ML IV ONE (01:21)
--- NOTE | 2019-09-01 02:03 | PDOC ---
*Physical Exam - Vital Signs Last Vital Signs Temp Pulse Resp BP Pulse Ox 98.0 F 116 H 20 137/89 100 09/01/19 00:48 09/01/19 00:48 09/01/19 00:48 09/01/19 00:48 09/01/19 00:48 ED Treatment Course - Medications Given in the ED: ED Medications Discontinued Medications Generic Name Dose Route Start Last Admin Trade Name Freq PRN Reason Stop Dose Admin Diphenhydramine HCl 50 mg 09/01/19 00:52 09/01/19 01:19 Benadryl Injection - IVPB 09/01/19 00:53 Not Given ONCE ONE Diphenhydramine HCl 25 mg 09/01/19 01:13 09/01/19 01:19 Benadryl Injection - IVPB 09/01/19 01:14 25 mg ONCE ONE Administration Famotidine/Sodium Chloride 20 mg in 50 mls @ 100 mls/hr 09/01/19 00:52 01:12 Pepcid 20 Mg Premixed Ivpb - IVPB 09/01/19 01:21 100 mls/hr ONCE ONE Administration Methylprednisolone Sodium Succinate 125 mg 09/01/19 00:52 09/01/19 01:12 Solu-Medrol - IVPUSH 09/01/19 00:53 125 mg ONCE ONE Administration Medical Decision Making - Medical Decision Making 09/01/19 02:[address] Received signed out from Dr Subhash Beckwith is a 53yo F with allergic Hx presenting with acute allergic reaction to a new soap. Notable for diffuse papules on an erythematous base c/w regions of soap use. No signs of other system involvement other than mild nausea. No Pulmonary, GI, Neuro, or Circulatory manifestations evident at the current time making anaphylaxis unlikely. Given Diphehydramine, Pepcid, Methylprednisone IVF with symptomatic improvement. D/c home w PCP and allergy f/u Discharge - Discharge Information Problems reviewed: Yes Clinical Impression/Diagnosis: Acute allergic reaction Qualifiers: Encounter type: initial encounter Qualified Code(s): T78.40XA - Allergy, unspecified, initial encounter Condition: Improved Disposition: HOME - Admission No - Follow up/Referral Referrals: Luba Hankins MD [Staff Physician] - Ye Grant MD [Primary Care Provider] - Edd Hoyt [Staff Physician] - - Patient Discharge Instructions Patient Printed Discharge Instructions: DI for General Allergic Reactions Additional Instructions: You were seen and evaluated in the [facility] ED for an allergic reaction. Thank you for coming in. Please discard the soap that you identified as the likely cause of your reaction. Follow up with your primary care doctor on Tuesday and attempt to see an vision care associate within the next week. You can use the referral you already have or call any on the list provided. Please note that allergists often need you to discontinue antihistamines before going in so that their testing will work. Please be sure you discuss/ask about this when making your appointment to expedite your care. Talk to your doctor about having an Epipen Please return to the emergency department for any new or concerning symptoms including but not limited to: difficulty breathing, changes in your mental status / thinking, persistent nausea and vomiting, or worsening rash. - Post Discharge Activity
[2019-09-01 03:46] VITALS: BP 135/68; PULSE 94
== END 2019-09-01 03:33 | disposition home or self-care (01) ==
LOC: JER 00:41
PROC: 3E0337Z Introduction of Electrolytic and Water Balance Substance into Peripheral Vein, Percutaneous Approach (ICD-10-PCS; principal; 2019-09-01)
PROC: 3E033GC Introduction of Other Therapeutic Substance into Peripheral Vein, Percutaneous Approach (ICD-10-PCS; 2019-09-01)
PROC: 3E0333Z Introduction of Anti-inflammatory into Peripheral Vein, Percutaneous Approach (ICD-10-PCS; 2019-09-01)
PROC: 3E033GC Introduction of Other Therapeutic Substance into Peripheral Vein, Percutaneous Approach (ICD-10-PCS; 2019-09-01)
DX: T78.49XA Other allergy, initial encounter (principal); Z91.013 Allergy to seafood; Z91.018 Allergy to other foods; Z88.8 Allergy status to other drugs, medicaments and biological substances
CPT/HCPCS: 96361; 96365; 96375; 99283-25; J7030

== ENCOUNTER 2019-09-29 00:22 | Emergency (ER) | payer OTHER ==
[2019-09-29] MEDS ORDERED: methylPREDNISolone NA SUCC 125 MG/2 ML VIAL IVPB ONE (00:37)
[2019-09-29] MEDS ORDERED: FAMOTIDINE 20 MG/50 ML IVPB 20 MG/50 ML MG IVPB ONE ×2 (00:38→00:39)
[2019-09-29] MEDS ORDERED: methylPREDNISolone NA SUCC 125 MG/2 ML VIAL ONE (00:39)
--- NOTE | 2019-09-29 00:49 | PDOC ---
History of Present Illness - General Stated Complaint: ALLERGIC REACTION History Source: Patient Exam Limitations: No Limitations - History of Present Illness Initial Comments: 09/29/19 00:43 Patient is a 53F with history of multiple severe allergies here today complaining of a rash that started just prior to arrival. Patient states that she was visiting her sister who has a new cat. She's complaining of a rash along her face, chest, back and abdomen. She denies difficulty breathing, shortness of breath, headache, nausea, vomiting and abdominal pain. Denies fevers, chills. Denies new drug exposure. Past History - Past Medical History Allergies/Adverse Reactions: Allergies Allergy/AdvReac Type Severity Reaction Status Date / Time cat dander Allergy Intermediate Verified 09/29/19 00:51 epinephrine Allergy Verified 09/01/19 00:48 perfume Allergy Verified 09/01/19 00:48 pistachio nut Allergy Verified 09/01/19 00:48 seafood Allergy Uncoded 09/01/19 00:48 Home Medications: Ambulatory Orders NK [No Known Home Medication] 09/29/19 Anemia: Yes Asthma: Yes Cancer: No Cardiac Disorders: Yes CVA: Yes (X2 right sided weakness/numbness) COPD: No CHF: No DVT: No Dementia: No Diabetes: No GI Disorders: No Disorders: No HTN: No Hypercholesterolemia: Yes Liver Disease: No Seizures: No Thyroid Disease: No - Surgical History Abdominal Surgery: No Appendectomy: No Cardiac Surgery: No Cholecystectomy: No Lung Surgery: No Neurologic Surgery: (left ear sx x3, hard of hearing/tonsilectomy) Orthopedic Surgery: No - Immunization History Td Vaccination: Yes Immunization Up to Date: Yes - Psycho Social/Smoking Cessation Hx Smoking Status: No Smoking History: Unknown if ever smoked Have you smoked in the past 12 months: No Number of Cigarettes Smoked Daily: 0 Cigars Per Day: 0 Hx Alcohol Use: No Drug/Substance Use Hx: No Substance Use Type: None Hx Substance Use Treatment: No Review of Systems - Review of Systems Able to Perform ROS?: Yes Comments:: 09/29/19 00:49 GENERAL/CONSTITUTIONAL: No fever or chills. No weakness. HEAD, EYES, EARS, NOSE AND THROAT: No change in vision. No ear pain or discharge. No sore throat. CARDIOVASCULAR: No chest pain or shortness of breath RESPIRATORY: No cough, wheezing, or hemoptysis. GASTROINTESTINAL: No nausea, vomiting, diarrhea or constipation. GENITOURINARY: No dysuria, frequency, or change in urination. MUSCULOSKELETAL: No joint or muscle swelling or pain. No neck or back pain. SKIN: +rash NEUROLOGIC: No headache, vertigo, loss of consciousness, or change in strength/ sensation. ALLERGIC/IMMUNOLOGIC: No hives or skin allergy. *Physical Exam - Physical Exam Comments: 09/29/19 00:50 GENERAL: Awake, alert, and fully oriented, in no acute distress HEAD: No signs of trauma, normocephalic, atraumatic EYES: PERRLA, EOMI, sclera anicteric, conjunctiva clear ENT: Auricles normal inspection, hearing grossly normal, nares patent, oropharynx clear without exudates. Moist mucosa NECK: Normal ROM, supple, no lymphadenopathy, JVD, or masses LUNGS: No distress, speaks full sentences, clear to auscultation bilaterally HEART: Regular rate and rhythm, normal S1 and S2, no murmurs, rubs or gallops, peripheral pulses normal and equal bilaterally. ABDOMEN: Soft, nontender, normoactive bowel sounds. No guarding, no rebound. No masses EXTREMITIES: Normal inspection, Normal range of motion, no edema. No clubbing or cyanosis. NEUROLOGICAL: Cranial nerves II through XII grossly intact. Normal speech, normal gait, no focal sensorimotor deficits SKIN: Warm, Dry, normal turgor, maculopapular on face, back, arms, chest Medical Decision Making - Medical Decision Making 09/29/19 00:50 Patient is 53F here today with allergic reaction. Vitals normal and stable, no signs of infection or anaphylaxis. Will treat with benadryl, pepcid, steroids and monitor. 09/29/19 02:51 Patient reassessed. Rash mostly cleared. Lungs clear, feeling better. Will discharge home with pcp follow up. Discharge - Discharge Information Problems reviewed: Yes Clinical Impression/Diagnosis: Allergic reaction Condition: Good Disposition: HOME - Admission No - Follow up/Referral - Patient Discharge Instructions Patient Printed Discharge Instructions: DI for General Allergic Reactions Additional Instructions: Please avoid your trigger for your allergic reaction. Please return to the ED if you have any new, worsening or concerning symptoms, especially another allergic reaction, spreading redness or fever. - Post Discharge Activity
[2019-09-29 00:50] VITALS: BP 145/88; PULSE 100; TEMP 97.9; BMI 77.5
--- NOTE | 2019-09-29 02:24 | PDOC ---
Attending Attestation - Resident Resident Name: Yandel Krueger - ED Attending Attestation I have performed the following: I have examined & evaluated the patient, The case was reviewed & discussed with the resident, I agree w/resident's findings & plan, Exceptions are as noted - HPI HPI: 09/29/19 02:23 09/29/19 02:24 Ms. Beckwith is a 53-year-old female presenting to the emergency department with allergic reaction She has a h/o asthma and multiple allergic reactions (epinephrine, perfumes, soaps, pistachios, seafood) She presents to the ER with diffuse pruritus and rash after visiting her sister who has a new cat Pt denies any difficulty breathing, stridor, mouth/throat/facial swelling. No nausea or vomiting No h/o anaphylaxis, throat swelling, or intubation No new medications, foods, drugs, lotions, soap All: as above Meds: Benadryl PMH: as above +L ear deafness PSH: multiple surgeries on left ear - Physicial Exam PE: 09/29/19 02:28 GENERAL: The patient is in no acute distress. ENT: Ears normal, nares patent, oropharynx clear without exudates. Moist mucous membranes. No uvula edema/enlargement NECK: Normal range of motion, supple, no nuchal rigidity (+) LAD LUNGS: Breath sounds equal, No wheezes, stridor HEART:Regular rate and rhythm, normal S1 and S2 without murmur, rub or gallop. ABDOMEN: Soft, nontender, normoactive bowel sounds. EXTREMITIES: Normal range of motion. NEUROLOGICAL: Cranial nerves II through XII grossly intact. Normal speech. No focal neurological deficits. SKIN: Diffuse erythematous rash on face, neck - Medical Decision Making 09/29/19 02:29 53-year-old female presenting to the emergency department with a complaint of diffuse rash after exposure to a new cat Patient presents with allergic reaction No signs of airway compromise Given Solu-Medrol, Pepcid, Benadryl Will observe Will discharge home
[2019-09-29] MEDS ORDERED: ACETAMINOPHEN 500 MG TABLET (FP) PO ONE (02:53)
[2019-09-29] MEDS ORDERED: ACETAMINOPHEN 325 MG TABLET (FP) ONE (03:08)
== END 2019-09-29 03:15 | disposition home or self-care (01) ==
LOC: JER 00:22
PROC: 3E033GC Introduction of Other Therapeutic Substance into Peripheral Vein, Percutaneous Approach (ICD-10-PCS; principal; 2019-09-29)
PROC: 3E0333Z Introduction of Anti-inflammatory into Peripheral Vein, Percutaneous Approach (ICD-10-PCS; 2019-09-29)
PROC: 3E033GC Introduction of Other Therapeutic Substance into Peripheral Vein, Percutaneous Approach (ICD-10-PCS; 2019-09-29)
DX: J30.81 Allergic rhinitis due to animal (cat) (dog) hair and dander (principal); D64.9 Anemia, unspecified; E78.00 Pure hypercholesterolemia, unspecified; I69.851 Hemiplegia and hemiparesis following other cerebrovascular disease affecting right dominant side; Z87.09 Personal history of other diseases of the respiratory system; H91.8X2 Other specified hearing loss, left ear; Z88.8 Allergy status to other drugs, medicaments and biological substances; Z91.013 Allergy to seafood; Z91.018 Allergy to other foods
CPT/HCPCS: 96365; 96375; 99281-25

== ENCOUNTER 2019-11-27 07:46 | Emergency (ER) | payer OTHER ==
[2019-11-27] MEDS ORDERED: ALBUTEROL SO4 2.5/IPRATROPIUM 0.5 INH SOL 3 ML VIAL.NEB. NEB ONE ×2 (08:15→08:51)
[2019-11-27] MEDS ORDERED: FAMOTIDINE 20 MG/50 ML IVPB 20 MG/50 ML MG IVPB ONE ×3 (08:16→09:00)
[2019-11-27] MEDS ORDERED: methylPREDNISolone NA SUCC 125 MG/2 ML VIAL ONE ×3 (08:16→08:20)
[2019-11-27 08:22] VITALS: BP 125/70; TEMP 98.5; BMI 31.2
[2019-11-27] MEDS ORDERED: methylPREDNISolone NA SUCC 125 MG/2 ML VIAL IVPB ONE (08:31)
--- NOTE | 2019-11-27 09:05 | PDOC ---
History of Present Illness - General Chief Complaint: Allergic Reaction Stated Complaint: ALLERGIC REACTION Time Seen by Provider: 11/27/19 08:28 - History of Present Illness Initial Comments: 11/27/19 08:52 54 yo F with h/o chronic urticaria who p/w uritcarial rash and report of wheezing, dysphagia. Patient states that this morning she was cleaning with furniture [place] at approximately 7:00 AM this morning, when she developed pruitic rash on trunk, back abdomen, and extremities. Also endorses wheezing, dysphagia this AM following exposure. Reports h/o similar symptoms. Reports multiple known contact allergants. Denies recent travels or sick contacts. Reports home duonebs, but denies use today. Denies OTC symptom management. Has never seen senior security architect. Denies ICU stay, prior intubations. Past History - Past Medical History Allergies/Adverse Reactions: Allergies Allergy/AdvReac Type Severity Reaction Status Date / Time cat dander Allergy Intermediate Verified 09/29/19 00:51 epinephrine Allergy Verified 09/01/19 00:48 perfume Allergy Verified 09/01/19 00:48 pistachio nut Allergy Verified 09/01/19 00:48 seafood Allergy Uncoded 09/01/19 00:48 Home Medications: Ambulatory Orders Prednisone [Prednisone 50 MG TABLETS] 50 mg PO DAILY #3 tablet 09/29/19 Anemia: Yes Asthma: Yes Cancer: No Cardiac Disorders: Yes CVA: Yes (X2 right sided weakness/numbness) COPD: No CHF: No DVT: No Dementia: No Diabetes: No GI Disorders: No Disorders: No HTN: No Hypercholesterolemia: Yes Liver Disease: No Seizures: No Thyroid Disease: No - Surgical History Abdominal Surgery: No Appendectomy: No Cardiac Surgery: No Cholecystectomy: No Lung Surgery: No Neurologic Surgery: (left ear sx x3, hard of hearing/tonsilectomy) Orthopedic Surgery: No - Immunization History Td Vaccination: Yes Immunization Up to Date: Yes - Psycho Social/Smoking Cessation Hx Smoking Status: No Smoking History: Never smoked Have you smoked in the past 12 months: No Number of Cigarettes Smoked Daily: 0 Cigars Per Day: 0 Hx Alcohol Use: No Drug/Substance Use Hx: No Substance Use Type: None Hx Substance Use Treatment: No Review of Systems - Review of Systems Comments:: 11/27/19 09:37 GENERAL/CONSTITUTIONAL: No fever or chills. No weakness. HEAD, EYES, EARS, NOSE AND THROAT: No change in vision. No ear pain or discharge. No sore throat. CARDIOVASCULAR: No chest pain or shortness of breath RESPIRATORY: + Wheezing, SOB. No cough, hemoptysis. GASTROINTESTINAL: No nausea, vomiting, diarrhea or constipation. GENITOURINARY: No dysuria, frequency, or change in urination. MUSCULOSKELETAL: No joint or muscle swelling or pain. No neck or back pain. SKIN: + rash NEUROLOGIC: No headache, vertigo, loss of consciousness, or change in strength/ sensation. ENDOCRINE: No increased thirst. No abnormal weight change HEMATOLOGIC/LYMPHATIC: No anemia, easy bleeding, or history of blood clots. ALLERGIC/IMMUNOLOGIC: No hives or skin allergy. *Physical Exam - Vital Signs Last Vital Signs Temp Pulse Resp BP Pulse Ox 98.5 F 110 H 24 H 125/70 100 11/27/19 08:12 11/27/19 08:12 11/27/19 08:12 11/27/19 08:12 11/27/19 08:45 - Physical Exam 11/27/19 09:34 GENERAL: Awake, alert, and fully oriented, in no acute distress HEAD: No signs of trauma, normocephalic, atraumatic EYES: PERRLA, EOMI, sclera anicteric, conjunctiva clear ENT: Auricles normal inspection, hearing grossly normal, nares patent, oropharynx clear without exudates. Moist mucosa with neg lesions. Neg mucosal edema. NECK: Normal ROM, supple, no lymphadenopathy, JVD, or masses LUNGS: No distress, speaks full sentences, clear to auscultation bilaterally HEART: Regular rate and rhythm, normal S1 and S2, no murmurs, rubs or gallops, peripheral pulses normal and equal bilaterally. ABDOMEN: Soft, nontender, normoactive bowel sounds. No guarding, no rebound. No masses EXTREMITIES : Normal inspection, Normal range of motion, no edema. No clubbing or cyanosis NEUROLOGICAL: Cranial nerves II through XII grossly intact. Normal speech, normal gait, no focal sensorimotor deficits SKIN: + widespread urticarial, erythematous lesions on abdomen, trunk, back, ext 's. face, sparing mucosa, and eyes. Warm, Dry, normal turgor. ED Treatment Course - Medications Given in the ED: ED Medications Discontinued Medications Generic Name Dose Route Start Last Admin Trade Name Dara PRN Reason Stop Dose Admin Diphenhydramine HCl 50 mg 11/27/19 08:31 11/27/19 08:44 Benadryl Injection - IVPUSH 11/27/19 08:32 50 mg ONCE ONE Administration Methylprednisolone Sodium Succinate 125 mg 11/27/19 08:31 11/27/19 08:44 Solu-Medrol - IVPB 11/27/19 08:32 125 mg ONCE ONE Administration Medical Decision Making - Medical Decision Making 11/27/19 08:55 54 yo F with h/o chronic urticaria who p/w uritcarial rash and report of wheezing, dysphagia. HR 110, RR 24, vitals otherwise wnl, AF, A&OX3. Physical exam notable for widespread urticarial, erythematous lesions on abdomen, trunk, back, ext's. face, sparing mucosa, and eyes. Patient with absent mucsoal or tongue swelling, palatal edema, uvuvla swelling. Patient tolerating oral secretions. Absent evidence resp. distress, airway compromise, or evidence of anaphylaxis. Pt. denies ALLISON, vision change, palpitations, cough, wheezing, N/V, F ,C, CP, hematuria, BPR, abdominal pain, diarrhea, lightheadedness, weakness, sensory changes. Patient with longstanding urticaria. Likely chronic vs. acute. ED Course: 11/27/19 09:43 Duoneb, Methylpredinsone, Famotidine, Diphenhydramine 11/27/19 10:46 EKG: Sinus tachycardia with with absent SIMA, STD. Nml interval duration and axis. Nml R wave progression. Patient symptoms improved stable for d/c with return precautions. Advised to f/u with Dermatology and Allergy medicine specialist. Discharge - Discharge Information Problems reviewed: Yes Clinical Impression/Diagnosis: Urticaria Condition: Stable - Admission No - Follow up/Referral Referrals: Carmen Nino [Primary Care Provider] - Luba Hankins MD [Staff Physician] - Gricelda Cleaning [Non Staff, Medical] - Garett Velasco MD [Non Staff, Medical] - Chago Najera DO [Non Staff, Medical] - - Patient Discharge Instructions Patient Printed Discharge Instructions: DI for Hives Additional Instructions: Please return to the emergency department with any new or worsening symptoms or concerns. Please follow up with Legal Billing Analyst, senior security architect, and your primary care physician within 72 hours. - Post Discharge Activity
--- NOTE | 2019-11-27 09:07 | PDOC ---
Attending Attestation - Resident Resident Name: Mata Castillo - ED Attending Attestation I have performed the following: I have examined & evaluated the patient, The case was reviewed & discussed with the resident, I agree w/resident's findings & plan, Exceptions are as noted - HPI HPI: 11/27/19 08:52 54 F with reported history of multiple allergies, presenting to ED with rash. Pt states that she was cleaning this morning and inhaled a cleaning product that caused her to itch all over. Pt also endorses hoarseness but denies any SOB. Denies tongue or lip swelling. Denies difficulty swallowing. Pt has been seen here multiple times for "allergic reactions", but pt states she has never seen an mechanical operator. Does not know why. - Physicial Exam PE: 11/27/19 09:07 "GENERAL: Awake, alert, and fully oriented, in no acute distress. HEAD: No signs of trauma EYES: PERRLA, EOMI, sclera anicteric, conjunctiva clear ENT: Auricles normal inspection, hearing grossly normal, nares patent, oropharynx clear without exudates. Moist mucosa NECK: Nontender, no stepoffs, Normal ROM, supple, no lymphadenopathy, JVD, or masses LUNGS: Breath sounds equal, clear to auscultation bilaterally. No wheezes, and no crackles HEART: Regular rate and rhythm, normal S1 and S2, no murmurs, rubs or gallops ABDOMEN: Soft, nontender, normoactive bowel sounds. No guarding, no rebound. No masses EXTREMITIES: Normal range of motion, no edema. No clubbing or cyanosis. No cords, erythema, or tenderness NEUROLOGICAL: Cranial nerves II through XII intact. 5/5 strength and sensation in all extremities, Normal speech, normal gait, normal cerebellar function SKIN: + diffuse erythematous scaly rash to rash, chest, back, arms - Medical Decision Making 11/27/19 09:09 54 F with rash. Suspect chronic urticaria, as pt has had multiple presentations with same complaint. On exam, pt has chronic-appearing rash with scaling. No evidence of acute allergic reaction. no airway involvement. No stridor or wheezing on exam. - Benadryl, steroids - F/u allergy, derm Pt reassessed after 3 hours. Now reports significant improvement in symptoms. Pt is well appearing, with normal vitals. Clinically stable for DC at this time. I discussed the physical exam findings, ancillary test results and final diagnoses with the patient. I answered all of the patient's questions. The patient was satisfied with the care received and felt comfortable with the discharge plan and treatment plan. The patient agrees to follow up with the primary care physician within 24-72 hours.
[2019-11-27] MEDS ORDERED: SODIUM CHLORIDE 1,000 ML IV STA (09:35)
[2019-11-27 09:45] VITALS: PULSE 99
--- NOTE | 2019-11-27 12:33 | EKG ---
Test Reason : Blood Pressure : / mmHG Vent. Rate : 101 BPM Atrial Rate : 101 BPM P-R Int : 156 ms QRS Dur : 072 ms QT Int : 366 ms P-R-T Axes : 048 029 027 degrees QTc Int : 474 ms SINUS TACHYCARDIA OTHERWISE NORMAL ECG Confirmed by MD YAMILE, LAVON ([id number]) on 11/27/2019 12:33:30 PM Referred By: Confirmed By:LAVON OVALLE MD
== END 2019-11-27 11:07 | disposition home or self-care (01) ==
LOC: JER 07:46
PROC: 3E0F7GC Introduction of Other Therapeutic Substance into Respiratory Tract, Via Natural or Artificial Opening (ICD-10-PCS; principal; 2019-11-27)
PROC: 3E033GC Introduction of Other Therapeutic Substance into Peripheral Vein, Percutaneous Approach (ICD-10-PCS; 2019-11-27)
PROC: 3E0333Z Introduction of Anti-inflammatory into Peripheral Vein, Percutaneous Approach (ICD-10-PCS; 2019-11-27)
PROC: 3E033GC Introduction of Other Therapeutic Substance into Peripheral Vein, Percutaneous Approach (ICD-10-PCS; 2019-11-27)
DX: L50.8 Other urticaria (principal); D64.9 Anemia, unspecified; J45.909 Unspecified asthma, uncomplicated; I69.851 Hemiplegia and hemiparesis following other cerebrovascular disease affecting right dominant side; E78.00 Pure hypercholesterolemia, unspecified; Z91.013 Allergy to seafood; Z91.018 Allergy to other foods; Z91.048 Other nonmedicinal substance allergy status
CPT/HCPCS: 93005; 93010; 94640; 96365; 96375; 99282-25; J7030

== ENCOUNTER 2019-12-15 06:16 | Emergency (ER) | payer OTHER ==
[2019-12-15] MEDS ORDERED: methylPREDNISolone NA SUCC 125 MG/2 ML VIAL IVPB ONE (06:24)
[2019-12-15] MEDS ORDERED: FAMOTIDINE 20 MG/50 ML IVPB 20 MG/50 ML MG IVPB ONE ×2 (06:24→06:39)
--- NOTE | 2019-12-15 06:29 | PDOC ---
Rapid Medical Evaluation Chief Complaint: Allergic Reaction Time Seen by Provider: 12/15/19 06:25 Medical Evaluation: Allergies Allergy/AdvReac Type Severity Reaction Status Date / Time cat dander Allergy Intermediate Verified 09/29/19 00:51 epinephrine Allergy Verified 09/01/19 00:48 perfume Allergy Verified 09/01/19 00:48 pistachio nut Allergy Verified 09/01/19 00:48 seafood Allergy Uncoded 09/01/19 00:48 12/15/19 06:25 Patient is 54F with history of multiple allergic reactions here today with allergic reaction. Rash, throat clear, lungs clear, no vomiting. RRR, CTAB, rash to face/chest. Basic labs, pepcid, benadryl, steroids, ordered. Discharge Disposition - Diagnosis Allergic reaction - Discharge Dispostion Condition at time of disposition: Stable - Referrals - Patient Instructions - Post Discharge Activity
[2019-12-15] MEDS ORDERED: methylPREDNISolone NA SUCC 125 MG/2 ML VIAL ONE (06:39)
[2019-12-15 07:03] LABS: HEMATOCRIT 37.8 % (32.4-45.2); HEMOGLOBIN 12.6 GM/dL (10.7-15.3); MCH 29.6 pg (25.7-33.7); MCHC 33.2 g/dl (32.0-36.0); MEAN CELL VOLUME 88.9 fl (80-96); PLATELET COUNT 239 K/MM3 (134-434); RBC 4.25 M/mm3 (3.60-5.2); WHITE BLOOD COUNT 9.1 K/mm3 (4.0-10.0)
--- NOTE | 2019-12-15 07:11 | PDOC ---
History of Present Illness - General Chief Complaint: Allergic Reaction Stated Complaint: ALLERGIC REACTION Time Seen by Provider: 12/15/19 06:25 History Source: Patient Exam Limitations: No Limitations - History of Present Illness Initial Comments: 12/15/19 07:31 54 yo F with a past medical history significant for asthma and multiple allergies presents to the emergency department with rash and itching in her mouth after nazario spray exposure. Per the patient, she states at approximately 4am her brother was spraying nazario spray (unknown allergic reaction to it before ) and she felt a rash on set with itching throat. Denies the following: excessive tearing, SOB, wheezing, nausea, vomiting, abdominal pain, AMS, lightheadedness, and ears/nose/throat pain. Past History - Past Medical History Allergies/Adverse Reactions: Allergies Allergy/AdvReac Type Severity Reaction Status Date / Time cat dander Allergy Intermediate Verified 12/15/19 07:00 epinephrine Allergy Verified 12/15/19 07:00 perfume Allergy Verified 12/15/19 07:00 pistachio nut Allergy Verified 12/15/19 07:00 seafood Allergy Uncoded 12/15/19 07:00 Home Medications: Ambulatory Orders Albuterol 0.083% Nebulizer Amaya [Ventolin 0.083% Nebulizer Soln -] 1 amp NEB BID 12/15/19 Albuterol Sulfate Inhaler - [Ventolin Hfa Inhaler -] 1 - 2 inh PO Q4H 12/15/19 Epinephrine [Epipen 2-Marco A] 0.3 mg IJ ASDIR #1 kit 12/15/19 Anemia: Yes Asthma: Yes Cancer: No Cardiac Disorders: Yes CVA: Yes (X2 right sided weakness/numbness) COPD: No CHF: No DVT: No Dementia: No Diabetes: No GI Disorders: No Disorders: No HTN: No Hypercholesterolemia: Yes Liver Disease: No Seizures: No Thyroid Disease: No - Surgical History Abdominal Surgery: No Appendectomy: No Cardiac Surgery: No Cholecystectomy: No Lung Surgery: No Neurologic Surgery: (left ear sx x3, hard of hearing/tonsilectomy) Orthopedic Surgery: No - Immunization History Td Vaccination: Yes Immunization Up to Date: Yes - Psycho Social/Smoking Cessation Hx Smoking Status: No Smoking History: Never smoked Have you smoked in the past 12 months: No Number of Cigarettes Smoked Daily: 0 Cigars Per Day: 0 Hx Alcohol Use: No Drug/Substance Use Hx: No Substance Use Type: None Hx Substance Use Treatment: No Review of Systems - Review of Systems Able to Perform ROS?: Yes Is the patient limited Sami proficient: No Constitutional: No: Chills, Diaphoresis, Fever, Weakness HEENTM: Yes: Other (throat itching). No: Eye Pain, Tearing, Ear Pain, Nose Pain , Throat Pain, Mouth Pain Respiratory: No: Cough, Shortness of Breath, Hemoptysis Cardiac (ROS): No: Chest Pain, Lightheadedness, Palpitations, Chest Tightness ABD/GI: No: Constipated, Diarrhea, Nausea, Poor Appetite, Poor Fluid Intake, Rectal Bleeding, Vomiting, Abdominal cramping, Tarry Stools : No: Burning, Dysuria, Hematuria Musculoskeletal: No: Back Pain, Joint Pain, Neck Pain Integumentary: No: Bruising, Erythema, Rash Neurological: No: Headache, Numbness, Tingling Psychiatric: No: Change in Appetite Endocrine: No: Unexplained Weight Loss Hematologic/Lymphatic: No: Anemia *Physical Exam - Physical Exam General Appearance: Yes: Nourished, Appropriately Dressed. No: Apparent Distress, Intoxicated, Obese HEENT: positive: EOMI, HALEY, Normal Voice, Symmetrical, Pharynx Normal, Hearing Grossly Normal, Other (no tongue swelling. no edema in the pharynx). negative: Pale Conjunctivae, Scleral Icterus (R), Scleral Icterus (L), Muffled/Hoarse voice, Pharyngeal Erythema, Tonsillar Exudate, Tonsillar Erythema, Nasal Congestion, Rhinorrhea, Excessive drooling Neck: positive: Trachea midline, Supple, Other (no bruit auscultated in the neck with inspiration and expiration). negative: Tender, Stridor, Lymphadenopathy (R), Lymphadenopathy (L), Tender lateral, Tender midline Respiratory/Chest: positive: Lungs Clear, Normal Breath Sounds. negative: Chest Tender, Respiratory Distress, Accessory Muscle Use, Rales, Rhonchi, Stridor, Wheezing, Hyperresonant Cardiovascular: positive: Regular Rhythm, Regular Rate, S1, S2. negative: Systolic Murmur Gastrointestinal/Abdominal: positive: Normal Bowel Sounds, Flat, Soft. negative : Tender, Distended, Guarding, Rebound, Tenderness Lymphatic: negative: Adenopathy Musculoskeletal: positive: Normal Inspection. negative: CVA Tenderness, Vertebral Tenderness Extremity: positive: Normal Capillary Refill, Normal Inspection, Normal Range of Motion. negative: Tender, Swelling, Calf Tenderness Integumentary: positive: Normal Color, Dry, Warm, Hives (diffuse). negative: Jaundice, Cold, Clammy, Diaphoresis, Petechiae Neurologic: positive: Fully Oriented, Alert, Normal Mood/Affect ED Treatment Course - LABORATORY CBC & Chemistry Diagram: 12/15/19 06:48 12/15/19 06:48 - Medications Given in the ED: ED Medications Discontinued Medications Generic Name Dose Route Start Last Admin Trade Name Freq PRN Reason Stop Dose Admin Diphenhydramine HCl 50 mg 12/15/19 06:24 12/15/19 06:53 Benadryl Injection - IVPUSH 12/15/19 06:25 50 mg ONCE ONE Administration Famotidine/Sodium Chloride 20 mg in 50 mls @ 100 mls/hr 12/15/19 06:24 06:53 Pepcid 20 Mg Premixed Ivpb - IVPB 12/15/19 06:53 100 mls/hr ONCE ONE Administration Methylprednisolone Sodium Succinate 125 mg 12/15/19 06:24 12/15/19 06:53 Solu-Medrol - IVPB 12/15/19 06:25 125 mg ONCE ONE Administration Medical Decision Making - Medical Decision Making 54 yo F with a past medical history significant for asthma and multiple allergies presents to the emergency department with rash and itching in her mouth after nazraio spray exposure. Initial vitals: Initial Vital Signs Temp Pulse Resp BP Pulse Ox 97.7 F 95 H 20 119/67 100 12/15/19 07:00 12/15/19 07:00 12/15/19 07:00 12/15/19 07:00 12/15/19 07:00 Work up: patient presents to the emergency department after exposure to nazario spray with a sensation of itchy throat and skin. The patient was given pepcid, benadryl, and solu-medrol. At the time, the patient did not have SOB, wheezing on exam, stridor on examination, and nausea and vomiting. Likelihood of anaphylaxis is unlikely but remains in the differential as the patient will need ED observation for 2-3 hours after administration of medications Laboratory Tests 12/15/19 12/15/19 06:48 06:48 WBC 9.1 RBC 4.25 Hgb 12.6 Hct 37.8 MCV 88.9 MCH 29.6 MCHC 33.2 RDW 15.0 Plt Count 239 MPV 9.0 D Sodium 141 Potassium 4.0 Chloride 110 H Carbon Dioxide 24 Anion Gap 7 L BUN 10.2 Creatinine 0.8 Est GFR (CKD-EPI)AfAm 98.24 Est GFR (CKD-EPI)NonAf 84.76 Random Glucose 95 Calcium 8.4 L Total Bilirubin 0.6 AST 28 ALT 23 Alkaline Phosphatase 85 Total Protein 6.8 Albumin 3.2 L Patient was re-assessed. Her symptoms have resolved and she states she is ready to be discharged The patient was given education on abstaining from known allergens. I explained to the patient that while she may have had a flushing reaction with epinephrine, I explained it is a life saving medication that should be used when she feels she cant breathe when exposed to a known allergen A prescription of epi pen was sent to her pharmacy and a referral to an claims auditor that the patient states she will follow up with within 3 days after discharge. Dispo: Discharge Discharge - Discharge Information Problems reviewed: Yes Clinical Impression/Diagnosis: Allergic reaction Condition: Stable Disposition: HOME - Admission No - Additional Discharge Information Prescriptions: Epinephrine [Epipen 2-Marco A] 0.3 mg IJ ASDIR #1 kit - Follow up/Referral Referrals: Sancho Harris MD [Staff Physician] - Joanne Brown MD [Non Staff, Medical] - Luba Hankins MD [Staff Physician] - Jamie Erazo MD [Non Staff, Medical] - Cherri Allen MD [Staff Physician] - Julia Mclaughlin [Non Staff, Medical] - Sabina Golden [Non Staff, Medical] - - Patient Discharge Instructions Patient Printed Discharge Instructions: DI for General Allergic Reactions Additional Instructions: You were seen in the emergency department for the evaluation of your allergic reaction. Please follow up with the claims auditor within 3 days after discharge. You were referred to a host of them within the discharge papers. In addition, I prescribed an epinephrine auto injector to use if you have a severe allergic reaction as we discussed. Please return to the emergency department if you have worsening symptoms or new concerning symptoms. Thank you. - Post Discharge Activity
[2019-12-15 07:33] LABS: ALBUMIN 3.2 g/dl (3.4-5.0); BILIRUBIN,TOTAL 0.6 mg/dL (0.2-1); BLOOD UREA NITROGEN 10.2 mg/dL (7-18); CALCIUM 8.4 mg/dL (8.5-10.1); CREATININE 0.8 mg/dL (0.55-1.3); TOT PROT 6.8 g/dl (6.4-8.2)
--- NOTE | 2019-12-15 07:58 | PDOC ---
Attending Attestation - Resident Resident Name: Ruben Lopez - ED Attending Attestation I have performed the following: I have examined & evaluated the patient, The case was reviewed & discussed with the resident, I agree w/resident's findings & plan, Exceptions are as noted - HPI HPI: 12/15/19 07:50 Agree with resident HPI - Physicial Exam PE: 12/15/19 07:51 GENERAL: Awake, alert, and fully oriented, in no acute distress EYES: PERRLA, EOMI, sclera anicteric, conjunctiva clear ENT: Nares patent, oropharynx clear without exudates. Moist mucosa. Uvula midline with no edema NECK: Normal ROM, supple, no lymphadenopathy, JVD, or masses LUNGS: Breath sounds equal, clear to auscultation bilaterally. No wheezes, and no crackles HEART: Regular rate and rhythm, normal S1 and S2, no murmurs, rubs or gallops ABDOMEN: Soft, nontender, normoactive bowel sounds. No guarding, no rebound. No masses EXTREMITIES: Normal range of motion, no edema. No clubbing or cyanosis. No cords, erythema, or tenderness NEUROLOGICAL: Normal speech, cranial nerves intact, equal strength and sensation b/l SKIN: Erythema to anterior proximal arms, anterior chest, face - Medical Decision Making 12/15/19 07:51 54yo F with hx multiple allergies presents to the ED with itching and erythema to anterior chest and face, believes 2/2 nazario spray. No evidence of anaphylaxis Feels improved with fluids, steroids, benadryl, pepcid but still has some facial erythema Will continue to observe 12/15/19 09:25 Significant improvement in sxs No longer erythematous Pt is clinically well appearing, stable Prescribed epi pen - discussed indications for use Also discussed at length importance of f/u with team member for testing Pt expresses understanding I discussed the physical exam findings, ancillary test results and final diagnoses with the patient. I answered all of the patient's questions. The patient was satisfied with the care received and felt comfortable with the discharge plan and treatment plan. The patient will call their primary care physician within 24 hours to arrange follow-up and will return to the Emergency Department with any new, persistent or worsening symptoms.
[2019-12-15 08:12] VITALS: TEMP 97.7; BMI 31.7
[2019-12-15 10:43] VITALS: BP 126/66; PULSE 108
== END 2019-12-15 10:00 | disposition home or self-care (01) ==
LOC: JER 06:16
PROC: 3E033GC Introduction of Other Therapeutic Substance into Peripheral Vein, Percutaneous Approach (ICD-10-PCS; principal; 2019-12-15)
PROC: 3E033GC Introduction of Other Therapeutic Substance into Peripheral Vein, Percutaneous Approach (ICD-10-PCS; 2019-12-15)
PROC: 3E0333Z Introduction of Anti-inflammatory into Peripheral Vein, Percutaneous Approach (ICD-10-PCS; 2019-12-15)
DX: T60.91XA Toxic effect of unspecified pesticide, accidental (unintentional), initial encounter (principal); L23.5 Allergic contact dermatitis due to other chemical products; Y92.038 Other place in apartment as the place of occurrence of the external cause; J45.909 Unspecified asthma, uncomplicated; D64.9 Anemia, unspecified; Z91.013 Allergy to seafood; Z91.018 Allergy to other foods; Z88.8 Allergy status to other drugs, medicaments and biological substances; Z91.048 Other nonmedicinal substance allergy status; I69.851 Hemiplegia and hemiparesis following other cerebrovascular disease affecting right dominant side
CPT/HCPCS: 36415; 80053; 85027; 96365; 96375; 99283-25

== ENCOUNTER 2020-05-28 06:26 | Emergency (ER) | payer OTHER ==
[2020-05-28 06:44] VITALS: TEMP 98.4; BMI 32.3
[2020-05-28] MEDS ORDERED: predniSONE 20 MG TABLET (UD) PO ONE (07:11)
[2020-05-28] MEDS ORDERED: FAMOTIDINE 20 MG TABLET PO ONE (07:12)
[2020-05-28] MEDS ORDERED: FAMOTIDINE 20 MG TABLET ONE (07:31)
[2020-05-28] MEDS ORDERED: predniSONE 20 MG TABLET (UD) ONE (07:31)
[2020-05-28] MEDS ORDERED: methylPREDNISolone NA SUCC 125 MG/2 ML VIAL IVPUSH ONE (07:46)
[2020-05-28] MEDS ORDERED: FAMOTIDINE 20 MG/50 ML IVPB 20 MG/50 ML MG IVPB ONE ×2 (07:46→07:50)
[2020-05-28] MEDS ORDERED: methylPREDNISolone NA SUCC 125 MG/2 ML VIAL ONE (07:50)
--- NOTE | 2020-05-28 08:22 | PDOC ---
Documentation entered by Alban Larkin SCRIBE, acting as scribe for Ryan Culver MD. Ryan Culver MD: This documentation has been prepared by the Tyra herrera inAlban SCRIBE, under my direction and personally reviewed by me in its entirety. I confirm that the documentation accurately reflects all work, treatment, procedures, and medical decision making performed by me. History of Present Illness - General Chief Complaint: Allergic Reaction Stated Complaint: ALLERGIC REACTION Time Seen by Provider: 05/28/20 07:06 History Source: Patient Exam Limitations: No Limitations - History of Present Illness Initial Comments: 05/28/20 07:53 The patient is a 54 y/o F with a past medical history significant of asthma and multiple allergies who presents to the emergency department s/p allergic reaction. Pt states she was in the shower this morning and accidentally used her brothers soap. Pt states immediately after she broke out into a rash and had a itching sensation in her throat, prompting her arrival to the ED. Pt states she did not take any medication for her symptoms. The patient denies chest pain and shortness of breath. Denies fever, chills, cough, N/V/D. Denies any URI symptoms. Allergies: Allergies: epinephrine (paralysed for 2 hours), perfumes, soaps, pistachios, seafood Social Hx: No alcohol or tobacco use Past History - Medical History Allergies/Adverse Reactions: Allergies Allergy/AdvReac Type Severity Reaction Status Date / Time cat dander Allergy Intermediate Verified 05/28/20 06:44 epinephrine Allergy Verified 05/28/20 06:44 perfume Allergy Verified 05/28/20 06:44 pistachio nut Allergy Verified 05/28/20 06:44 seafood Allergy Uncoded 05/28/20 06:44 Home Medications: Ambulatory Orders Albuterol 0.083% Nebulizer Amaya [Ventolin 0.083% Nebulizer Soln -] 1 amp NEB BID 12/15/19 Albuterol Sulfate Inhaler - [Ventolin Hfa Inhaler -] 1 - 2 inh PO Q4H 12/15/19 Epinephrine [Epipen 2-Marco A] 0.3 mg IJ ASDIR #1 kit 12/15/19 Diphenhydramine [Benadryl 12.5 MG/5 ML Oral Solution -] 25 mg PO Q6H #20 ml 05/28/20 Famotidine [Pepcid -] 20 mg PO DAILY #7 tablet 05/28/20 predniSONE [Deltasone -] 40 mg PO DAILY #10 tablet 05/28/20 Anemia: Yes Asthma: Yes Cancer: No Cardiac Disorders: Yes CVA: Yes (X2 right sided weakness/numbness) COPD: No CHF: No DVT: No Dementia: No Diabetes: No GI Disorders: No Disorders: No HTN: No Hypercholesterolemia: Yes Liver Disease: No Seizures: No Thyroid Disease: No - Surgical History Abdominal Surgery: No Appendectomy: No Cardiac Surgery: No Cholecystectomy: No Lung Surgery: No Neurologic Surgery: (left ear sx x3, hard of hearing/tonsilectomy) Orthopedic Surgery: No - Immunization History Td Vaccination: Yes Immunization Up to Date: Yes - Psycho-Social/Smoking History Smoking Status: No Smoking History: Never smoked Have you smoked in the past 12 months: No Number of Cigarettes Smoked Daily: 0 Cigars Per Day: 0 Information on smoking cessation initiated: No - Substance Abuse Hx (Audit-C & DAST Scrn) How often the patient has a drink containing alcohol: Never Score: In Men: 4 or > Positive; In Women: 3 or > Positive: 0 Screen Result (Pos requires Nsg. Audit-10AR): Negative In the last yr the pt used illegal drug/Rx for NonMed reason: No Score: Yes response is considered Positive: 0 Screen Result (Positive result requires Nsg. DAST-10): Negative Review of Systems - Review of Systems Able to Perform ROS?: Yes Comments:: 05/28/20 07:54 CONSTITUTIONAL: No fever, no chills, no fatigue EYES: No visual changes ENT: +itchy sensation in throat. No ear pain CARDIOVASCULAR: No chest pain, no palpitations RESPIRATORY: No cough, no SOB GI: No abdominal pain, no nausea, no vomiting, no constipation, no diarrhea GENITOURINARY: No dysuria, no frequency, no hematuria MUSKULOSKELETAL: No back pain, no joint pain, no myalgias SKIN: +rash NEURO: No headache All Other Systems: Reviewed and Negative *Physical Exam - Vital Signs Last Vital Signs Temp Pulse Resp BP Pulse Ox 98.4 F 98 H 16 133/74 98 05/28/20 06:36 05/28/20 06:36 05/28/20 06:36 05/28/20 06:36 05/28/20 06:36 - Physical Exam 05/28/20 08:20 CONSTITUTIONAL: Well-appearing; well-nourished; in no apparent distress HEAD: Normocephalic; atraumatic EYES: PERRL; EOM intact ENMT: Uvula midline, clear and nonedematous. External appears normal; normal oropharynx NECK: Supple; non-tender; no cervical lymphadenopathy CARD: Normal S1, S2; no murmurs, rubs, or gallops RESP: Normal chest excursion with respiration; breath sounds clear and equal bilaterally; no wheezes, rhonchi, or rales ABD: Soft, non-distended; non-tender; no palpable organomegaly, no palpable hernias EXT: Normal ROM in all four extremities; non-tender to palpation; distal pulses intact SKIN: +extensive, maculopapular rash on face, neck, upper chest, and upper ex tremities bilaterally; blanching, non urticarial. Warm, dry NEURO: No focal neurological deficiencies. Medical Decision Making - Medical Decision Making 05/28/20 08:22 Patient is a 54-year-old female who presents to the ER with signs and symptoms of mild to moderate allergic reaction. No evidence of airway compromise is present at this time. However, given the globus sensation, will administer IV Solu-Medrol, Benadryl and Pepcid. Will observe. Will consider epinephrine if evidence of respiratory compromise or airway obstruction develop. Will reassess. 05/28/20 09:23 Patient reassessed. Patient is resting comfortably with no airway issues. Patient insisted on being discharged because she is currently being picked up. Will discharge with prednisone, Benadryl and Pepcid. Patient is allergic to epinephrine so no EpiPen will be prescribed at this time. Discharge - Discharge Information Problems reviewed: Yes Clinical Impression/Diagnosis: Allergic reaction Qualifiers: Encounter type: initial encounter Qualified Code(s): T78.40XA - Allergy, unspecified, initial encounter Condition: Stable Disposition: HOME - Follow up/Referral Referrals: Will Mullen MD [Staff Physician] - - Patient Discharge Instructions Patient Printed Discharge Instructions: DI for General Allergic Reactions - Post Discharge Activity
[2020-05-28 08:57] VITALS: BP 126/65; PULSE 80
== END 2020-05-28 09:45 | disposition home or self-care (01) ==
LOC: JER 06:26
PROC: 3E033NZ Introduction of Analgesics, Hypnotics, Sedatives into Peripheral Vein, Percutaneous Approach (ICD-10-PCS; principal; 2020-05-28)
PROC: 3E033GC Introduction of Other Therapeutic Substance into Peripheral Vein, Percutaneous Approach (ICD-10-PCS; 2020-05-28)
DX: T78.40XA Allergy, unspecified, initial encounter (principal)
CPT/HCPCS: 96365; 96372; 96375; 99285-25

== ENCOUNTER 2020-07-16 19:51 | Emergency (ER) | payer OTHER ==
[2020-07-16 20:06] VITALS: TEMP 98.4; BMI 32.3
[2020-07-16] MEDS ORDERED: diphenhydrAMINE HCL 50 MG CAPSULE PO ONE (20:22)
[2020-07-16] MEDS ORDERED: FAMOTIDINE 20 MG TABLET PO ONE (20:22)
[2020-07-16] MEDS ORDERED: predniSONE 20 MG TABLET (UD) PO ONE (20:22)
[2020-07-16] MEDS ORDERED: predniSONE 20 MG TABLET (UD) ONE (20:26)
[2020-07-16] MEDS ORDERED: FAMOTIDINE 20 MG TABLET ONE (20:27)
[2020-07-16] MEDS ORDERED: diphenhydrAMINE HCL 25 MG CAPSULE (FP) PO ONE (20:27)
[2020-07-16] MEDS ORDERED: FAMOTIDINE 20 MG/50 ML IVPB 20 MG/50 ML MG IVPB ONE ×2 (20:29→20:37)
[2020-07-16] MEDS ORDERED: methylPREDNISolone NA SUCC 125 MG/2 ML VIAL IVPUSH ONE (20:29)
[2020-07-16] MEDS ORDERED: methylPREDNISolone NA SUCC 125 MG/2 ML VIAL ONE (20:37)
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
[2020-07-16 22:04] VITALS: BP 132/68; PULSE 102
== END 2020-07-16 22:03 | disposition home or self-care (01) ==
LOC: JER 19:51
PROC: 3E033GC Introduction of Other Therapeutic Substance into Peripheral Vein, Percutaneous Approach (ICD-10-PCS; principal; 2020-07-16)
DX: T78.40XA Allergy, unspecified, initial encounter (principal)
CPT/HCPCS: 99284-25

== ENCOUNTER 2020-08-29 20:40 | Emergency (ER) | payer OTHER ==
[2020-08-29 20:43] VITALS: PULSE 93; BMI 32.3
--- NOTE | 2020-08-29 20:52 | PDOC ---
History of Present Illness - General Chief Complaint: Shortness of Breath Stated Complaint: SOB Time Seen by Provider: 08/29/20 20:51 Past History - Medical History Allergies/Adverse Reactions: Allergies Allergy/AdvReac Type Severity Reaction Status Date / Time cat dander Allergy Intermediate Verified 08/29/20 20:43 epinephrine Allergy Verified 08/29/20 20:43 perfume Allergy Verified 08/29/20 20:43 pistachio nut Allergy Verified 08/29/20 20:43 seafood Allergy Uncoded 08/29/20 20:43 Home Medications: Ambulatory Orders Albuterol 0.083% Nebulizer Amaya [Ventolin 0.083% Nebulizer Soln -] 1 amp NEB BID 12/15/19 Albuterol Sulfate Inhaler - [Ventolin Hfa Inhaler -] 1 - 2 inh PO Q4H 12/15/19 Epinephrine [Epipen 2-Marco A] 0.3 mg IJ ASDIR #1 kit 12/15/19 Diphenhydramine [Benadryl 12.5 MG/5 ML Oral Solution -] 25 mg PO Q6H #20 ml 05/28/20 Famotidine [Pepcid -] 20 mg PO DAILY #7 tablet 05/28/20 predniSONE [Deltasone -] 40 mg PO DAILY #10 tablet 05/28/20 Diphenhydramine HCl [Benadryl -] 25 mg PO Q6H PRN #20 capsule 07/16/20 Famotidine [Pepcid] 20 mg PO DAILY #7 tablet 07/16/20 predniSONE [Deltasone -] 40 mg PO DAILY #8 tablet 07/16/20 Anemia: Yes Asthma: Yes Cancer: No Cardiac Disorders: Yes CVA: Yes (X2 right sided weakness/numbness) COPD: No CHF: No DVT: No Dementia: No Diabetes: No GI Disorders: No Disorders: No HTN: No Hypercholesterolemia: Yes Liver Disease: No Seizures: No Thyroid Disease: No - Surgical History Abdominal Surgery: No Appendectomy: No Cardiac Surgery: No Cholecystectomy: No Lung Surgery: No Neurologic Surgery: (left ear sx x3, hard of hearing/tonsilectomy) Orthopedic Surgery: No - Reproductive History Is Patient Now?: No - Immunization History Td Vaccination: Yes Immunization Up to Date: Yes - Psycho-Social/Smoking History Smoking Status: No Smoking History: Never smoked Have you smoked in the past 12 months: No Number of Cigarettes Smoked Daily: 0 Cigars Per Day: 0 *Physical Exam - Vital Signs Last Vital Signs Temp Pulse Resp BP Pulse Ox 98 F 93 H 20 126/78 100 08/29/20 20:41 08/29/20 20:41 08/29/20 20:41 08/29/20 20:41 08/29/20 20:41
--- OUTSIDE RECORDS SUMMARY | 2020-08-29 20:56 | XMS ---
:1965 Author Organization [facility] Care Team Providers Name Role Phone Ringstad, Siri Unavailable Unavailable Ringstad, Siri Unavailable Unavailable Ringstad, Siri Unavailable Unavailable Ringstad, Siri Unavailable Unavailable Ringstad, Siri Unavailable Unavailable Ringstad, Siri Unavailable Unavailable Ringstad, Siri Unavailable Unavailable Ringstad, Siri Unavailable Unavailable Ringstad, Siri Unavailable Unavailable Ringstad, Siri Unavailable Unavailable Ringstad, Siri Unavailable Unavailable ED STAFF PHYSICIANMISHEL Unavailable Unavailable Nino, Carmen Unavailable Unavailable Nino, Carmen Unavailable Unavailable Nino, Carmen Unavailable Unavailable Nino, Carmen Unavailable Unavailable Nino, Carmen Unavailable Unavailable Nino, Carmen Unavailable Unavailable Nino, Carmen Unavailable Unavailable Nino, Carmen Unavailable Unavailable Nino, Carmen Unavailable Unavailable Nino, Carmen Unavailable Unavailable VESELINOVIC RAFAEL, RAFAEL Unavailable Unavailable ED STAFF PHYSICIAN, STAFF Unavailable Unavailable ED STAFF BARBIE ALCARAZ Unavailable Unavailable Coloka-Kump, Rodika DO Unavailable Unavailable Coloka-Kump, Rodika DO Unavailable Unavailable Coloka-Kump, Rodika DO Unavailable Unavailable Coloka-Kump, Rodika DO Unavailable Unavailable Coloka-Kump, Rodika DO Unavailable Unavailable Coloka-Kump, Rodika DO Unavailable Unavailable Coloka-Kump, Rodika DO Unavailable Unavailable Coloka-Kump, Rodika DO Unavailable Unavailable Coloka-Kump, Rodika DO Unavailable Unavailable Coloka-Kump, Rodika DO Unavailable Unavailable Coloka-Kump, Rodika DO Unavailable Unavailable Coloka-Kump, Rodika DO Unavailable Unavailable Coloka-Kump, Rodika DO Unavailable Unavailable Coloka-Kump, Rodika DO Unavailable Unavailable Coloka-Kump, Rodika DO Unavailable Unavailable Coloka-Kump, Rodika DO Unavailable Unavailable Coloka-Kump, Rodika DO Unavailable Unavailable Nino, Carmen Unavailable Unavailable Nino, Carmen Unavailable Unavailable Nino, Carmen Unavailable Unavailable Nino, Carmen Unavailable Unavailable Nino, Carmen Unavailable Unavailable Nino, Carmen Unavailable Unavailable Nino, Carmen Unavailable Unavailable Nino, Carmen Unavailable Unavailable Nino, Carmen Unavailable Unavailable Nino, Carmen Unavailable Unavailable Ringstad, Siri Unavailable Unavailable Ringstad, Siri Unavailable Unavailable Ringstad, Siri Unavailable Unavailable Ringstad, Siri Unavailable Unavailable Ringstad, Siir Unavailable Unavailable Ringstad, Siri Unavailable Unavailable Ringstad, Siri Unavailable Unavailable Ringstad, Siri Unavailable Unavailable Ringstad, Siri Unavailable Unavailable Ringstad, Siri Unavailable Unavailable Ringstad, Siri Unavailable Unavailable Rudy, Sang Unavailable [phone] Rudy, Sang Unavailable + ED STAFF FLAQUITA ALCARAZ Unavailable Unavailable AszalosMariah Damaris Unavailable Unavailable Aszalos, Damaris Unavailable Unavailable Aszalos, Damaris Unavailable Unavailable Aszalos, Damaris Unavailable Unavailable Aszalos, Damaris Unavailable Unavailable Aszalos, Damaris Unavailable Unavailable Aszalos, Damaris Unavailable Unavailable Aszalos, Damaris Unavailable Unavailable Aszalos, Damaris Unavailable Unavailable Ekechukwu Unavailable [phone] Ekechukwu Unavailable [phone] MARIAMA KRISTINE Unavailable Unavailable Melrose Unavailable [phone] Libby Unavailable + Aszalos, Damaris Unavailable Unavailable Aszalos, Damaris Unavailable Unavailable Aszalos, Damaris Unavailable Unavailable Aszalos, Damaris Unavailable Unavailable Aszalos, Damaris Unavailable Unavailable Aszalos, Damaris Unavailable Unavailable Aszalos, Damaris Unavailable Unavailable Aszalos, Damaris Unavailable Unavailable Aszalos, Damaris Unavailable Unavailable Gardner Unavailable [phone] Garnder Unavailable [phone] Komal Dennis MD Unavailable Unavailable Sonny, Komal MD Unavailable Unavailable Sonny, Komal MD Unavailable Unavailable Sonny, Komal MD Unavailable Unavailable Sonny, Komal MD Unavailable Unavailable Sonny, Komal MD Unavailable Unavailable Sonny, Komal MD Unavailable Unavailable Sonny, Komal MD Unavailable Unavailable Sonny, Komal MD Unavailable Unavailable Sonny, Komal MD Unavailable Unavailable Sonny, Komal MD Unavailable Unavailable Sonny, Komal MD Unavailable Unavailable Sonny, Komal MD Unavailable Unavailable Sonny, Komal MD Unavailable Unavailable Sonny, Komal MD Unavailable Unavailable ZUNASSIGNED Unavailable Unavailable Veselinovic Unavailable [phone] Veselinovic Unavailable [phone] ED STAFF PHYSICIAN Unavailable Unavailable ZUNASSIGNED@, Unavailable Unavailable Re-disclosure Warning The records that you are about to access may contain information from federally- assisted alcohol or drug abuse programs. If such information is present, then the following federally mandated warning applies: This information has been disclosed to you from records protected by federal confidentiality rules (42 CFR part 2). The federal rules prohibit you from making any further disclosure of this information unless further disclosure is expressly permitted by the written consent of the person to whom it pertains or as otherwise permitted by 42 CFR part 2. A general authorization for the release of medical or other information is NOT sufficient for this purpose. The Federal rules restrict any use of the information to criminally investigate or prosecute any alcohol or drug abuse patient.The records that you are about to access may contain highly sensitive health information, the redisclosure of which is protected by Article 27-F of the [facility] Public Health law. If you continue you may haveaccess to information: Regarding HIV / AIDS; Provided by facilities licensed or operated by the [facility] Office of Mental Health; or Provided by the [facility] Office for People With Developmental Disabilities. If such information is present, then the following [place] mandated warning applies: This information has been disclosed to you from confidential records which are protected by state law. State law prohibits you from making any further disclosure of this information without the specific written consent of the person to whom it pertains, or as otherwise permitted by law. Any unauthorized further disclosure in violation of state law may result in a fine or half-way sentence or both. A general authorization for the release of medical or other information is NOT sufficient authorization for further disclosure. Family History Family Member Family Member Family Member Date of Description Data Source(s) Name Gender Status Status Unknown Male Problem 01/30/2014 [facility] ([facility] 12:00:00 AM Anel Medic nv EDT Center) Encounters Encounter Providers Location Date Indications Data Source(s ) Outpatient Attender: 09/01/2020 [facility] ZUNASSIGNEDAdmit 11:22:[address]: AM EDT ZUNASSIGNEDRefer rer: [id number] ZUNASSIGNED@, Outpatient Admitter: [id number] 09/01/2020 [facility] ZUNASSIGNED@,Ref 12:00:00 Medical Center errer: [id number] AM EDT ZUNASSIGNED@, Outpatient Attender: 08/29/2020 [facility] ZUNASSIGNEDAdmit 10:43:[address]: AM EDT ZUNASSIGNEDRefer rer: [id number] ZUNASSIGNED@, Outpatient Admitter: [id number] 08/29/2020 [facility] ZUNASSIGNED@,Ref 12:00:00 Medical Center errer: [id number] AM EDT ZUNASSIGNED@, Attender: [facility] 07/31/2020 [facility] Center 03:53:00 Anel Medica l [place] PM EDT - Center) 07/31/2020 03:53:00 PM EDT Attender: [facility] 07/16/2020 [facility] 03:44:[facility] Anel Medica l [place] PM EDT - Center) 07/16/2020 03:44:00 PM EDT Attender: [facility] 07/01/2020 [facility] ([facility] 12:42:00 Anel Medica l Ring[place] EDT - Center) 07/01/2020 12:42:00 PM EDT Attender: Carmen [facility] 06/26/2020 NEXTGE N ([facility] 03:56:00 Anel Medica l PM EDT - Center) 06/26/2020 03:56:00 PM EDT Attender: [facility] 04/21/2020 NEXTGEN ([facility] 10:20:00 Anel Medica l AM EDT - Center) 04/21/2020 10:20:00 AM EDT Attender: [facility] 03/25/2020 [facility] 10[facility]55[facility] Med[facility] l [place] AM EDT - Center) 03/25/2020 10:55:00 AM EDT Attender: [facility] 03/19/2020 NEXTGEN ([facility] 04:27:00 Anel Medica l [place] PM EDT - Center) 03/19/2020 04:27:00 PM EDT Attender: [facility] 03/03/2020 [facility] 12:01:[facility] Anel Medica l [place] PM EDT - Center) 03/03/2020 12:01:00 PM EDT Outpatient 02/28/2020 [facility] 10:33:00 Medical Center AM EDT Outpatient Attender: 02/28/2020 [facility] Siri 09:10:00 Medical Kimberly Sandy AM EDT : Siri Wallerrer : Siri Medina OutpatientOFFICE/ Attender: [facility] 02/28/2020 NEXT GEN ([facility] VISIT, [facility] 09:10:00 [facility] EDT - Center) 02/28/2020 09:10:00 AM EDT Outpatient 02/28/2020 [facility] 12:00:00 Medical Center AM EDT Outpatient 02/15/2020 [facility] 10:29:00 Medical Center AM EDT Outpatient 02/15/2020 [facility] 12:00:00 Medical Center AM EDT Outpatient 02/01/2020 [facility] 09:41:00 Medical Center AM EDT Outpatient 02/01/2020 [facility] 12:00:00 Medical Center AM EDT Attender: [facility] 01/31/2020 NEXTGEN ([facility] 10:47:00 Anel Medica l AM EDT - Center) 01/31/2020 10:47:00 AM EDT Outpatient 01/29/2020 [facility] 02:05:00 Medical Center PM EDT Outpatient 01/29/2020 [facility] 12:00:00 Medical Center AM EDT Outpatient 01/24/2020 [facility] 11:33:00 Medical Center AM EDT Attender: [facility] 01/24/2020 PAOLO N ([facility] 10:16:00 Anel Medica l AM EDT - Center) 01/24/2020 10:16:00 AM EDT Outpatient 01/24/2020 [facility] 12:00:00 Medical Center AM EDT Outpatient Attender: Carmen Redding 01/23/2020 [facility] ephs VelezAdmitter: 05:11:00 Medical Ce nter Carmen PM EDT VelezReferrer: Carmen Nino OutpatientOFFICE/ Attender: [facility] 01/23/2020 [facility] ([facility] OUTPATIENT VISIT, Julian 05:11:00 [facility] Medical [facility] PM EDT - Center) 01/23/2020 05:11:00 PM EDT Outpatient 01/23/2020 [facility] 03:50:00 Medical Center PM EDT Outpatient 01/23/2020 [facility] 12:00:00 Medical Center AM EDT Outpatient Attender: Carmen Redding 01/16/2020 [facility] ephs VelezAdmitter: 05:38:00 Medical Ce nter Carmen PM EST VelezReferrer: Carmen Nino OutpatientOFFICE/ Attender: [facility] 01/16/2020 JESSE ([facility] OUTPATIENT VISIT, Julian 05:38:00 [facility] Medical EST PM EST - Center) 01/16/2020 05:38:00 PM EST Outpatient 01/16/2020 [facility] 10:54:00 Medical Center AM EST Outpatient 01/16/2020 [facility] 12:00:00 Medical Center AM EST Attender: [facility] 01/02/2020 [facility]EXT[facility] N ([facility]ly 04:13:00 Anel Medica l PM EST - Center) 01/02/2020 04:13:00 PM EST Attender: [facility] 01/01/2020 NEXTGE N ([facility] 11:19:00 Anle Medica l AM EST - Center) 01/01/2020 11:19:00 AM EST Attender: [facility] 12/26/2019 NEXTGE N ([facility] 10:56:00 Anel Medica l AM EST - Center) 12/26/2019 10:56:00 AM EST Attender: [facility] 12/24/2019 [facility] ([facility] 06:26:00 Anel Medica l PM EST - Center) 12/24/2019 06:26:00 PM EST Emergency Attender: ED H 12/22/2019 [facility] STAFF 10:55:00 Medical Center PHYSICIANAttende AM EST - r: STAFF ED 12/22/2019 STAFF 01:44:00 PHYSICIANAdmitte PM EST r: ED STAFF PHYSICIAN Patient discharged. Attender: [facility] 12/12/2019 04:05:00 [facility] ([facility] PM EST - 12/12/2019 [facility] Medical 04:05:00 PM EST Center) Attender: [facility] 12/06/2019 03:55:00 [facility] ([facility] PM EST - 12/06/2019 [facility] Medical 03:55:00 PM EST Center) Emergency Attender: BARBIE ED H 12/06/2019 10:14:00 [facility] STAFF AM EST - 12/06/2019 [facility] PHYSICIANAttender: 03:04:00 PM EST [place] [facility] STAFF PHYSICIANAttender: STAFF ED STAFF PHYSICIANAdmitter: BARBIE ED STAFF PHYSICIAN Patient discharged. Outpatient Attender: Omid Redding 12/05/2019 [place] bhavesh Rogel 09:04:00 AM [facility] Medical Center DOAdmitter: Omid Rogel DOReferrer: Omid Rogel DO OutpatientOFFICE/O Attender: [facility] 12/05/2019 [facility] ([facility] 09:04:00 AM EST - J osephs EST 12/05/2019 Medical 09:04:00 AM EST Center) Outpatient 12/05/2019 [facility] 09:01:00 AM EST Medical C enter Outpatient 12/05/2019 [facility] 12:00:00 AM EST Medical C enter Outpatient Attender: RAFAEL Redding 11/15/2019 [place] bhavesh SUN 08:28:00 AM EST Medical Center ZOILAdmitter: RAFAEL HALL Attender: [facility] 11/15/2019 NEXTG EN ([facility] 08:28:00 AM EST [facility] 11/15/2019 Medical 08:28:00 AM EST Center) Outpatient 11/10/2019 [facility] 09:43:00 AM EST Medical C enter Outpatient Attender: KRISTINE Redding 11/10/2019 [facility] Michael LESLIE 08:43:00 AM EST Medical C enter MINALAdmitter: KRISTINE LESLIE MINALReferrer: KRISTINE CARMONA OutpatientOFFICE/O Attender: [facility] 11/10/2019 [facility] 08:43:00 AM EST - J osep EST 11/10/2019 Medical 08:43:00 AM EST Center) Outpatient 11/10/2019 [facility] 12:00:00 AM EST Medical C enter Attender: [facility] 11/03/2019 NEX TGEN ([facility] 10:23:00 AM [facility] 11/03/2019 Medical 10:23:00 AM EST Center) Outpatient 11/01/2019 [facility] 11:48:00 AM EST Medical C enter OutpatientOFFICE/O Attender: [facility] 11/01/2019 [facility] 09:40:00 AM EST - J osep EST 11/01/2019 Medical 09:40:00 AM EST Center) Outpatient Attender: Mariah Redding 11/01/2019 [place] Moralesdmitter: 09:40:00 AM EST Med ical Center Mariah Woodseferrer: Mariah Hester Outpatient 11/01/2019 [facility] 12:00:00 AM EST Medical C enter Outpatient 10/30/2019 [facility] 10:29:00 AM EST Medical C enter Outpatient 10/30/2019 [facility] 12:00:00 AM EST Medical C enter Emergency Attender: FLAQUITA ED H 10/29/2019 [facility] STAFF 06:56:00 PM EST - Medical Center PHYSICIANAttender: 10/29/2019 STAFF ED STAFF 09:53:00 PM EST PHYSICIANAdmitter: FLAQUITA ED STAFF PHYSICIAN Patient discharged. 10/29/2019 [facility] 12:00:00 AM EST - Medical Center 06/15/2019 12:00:00 AM EDT Outpatient 10/23/2019 [facility] 01:12:00 PM EST Medical C enter Outpatient 10/23/2019 [facility] 12:00:00 AM EST Medical C enter Attender: [facility] 10/19/2019 JESSE ([facility] 10:56:00 AM [facility] 10/19/2019 Center) 10:56:00 AM EST Outpatient Attender: Omid Redding 10/05/2019 [place] taylor Juan F 09:25:00 AM [facility] Medical Center DOAdmitter: Omid Rogel DOReferrer: Omid Rogel DO OutpatientOFFICE/OU Attender: [facility] 10/05/2019 MARIAN DECKER ([facility] 09:25:00 AM [facility] 10/05/2019 Kimberly) 09:25:00 AM EST Outpatient 10/05/2019 [facility] 09:13:00 AM EST Medical C enter Outpatient 10/05/2019 [facility] 12:00:00 AM EST Medical C enter Attender: [facility] 09/27/2019 PAOLO N ([facility] 02:31:00 PM [facility] 09/27/2019 Kimberly) 02:31:00 PM EST Attender: [facility] 09/26/2019 PAOLO N ([facility] 09:39:00 AM [facility] 09/26/2019 Kimberly) 09:39:00 AM EST Emergency Attender: STAFF H 09/26/2019 [facility] ED STAFF 01:04:00 AM [facility] - [facility] Center PHYSICIAN 09/26/2019 03:53:00 AM EST Patient discharged. 09/26/2019 12:00:00 AM [facility] EST - 06/15/2019 12:00:00 Center AM EDT Emergency Attender: FLAQUITA ED STAFF H 09/17/2019 04:17:00 PM [facility] PHYSICIANAttender: STAFF EST - 09/17/2019 10:35 :00 Center ED STAFF PM EST PHYSICIANAdmitter: FLAQUITA ED STAFF PHYSICIAN Patient discharged. Outpatient 08/13/2019 09:53:00 [facility] EDT Medical Center Outpatient 08/13/2019 12:00:00 [facility] EDT Medical Center Attender: [facility] 08/08/2019 03:02:00 NEXTGEN [facility] - 08/08/2019 [facility] 03:02:00 PM EDT Center) Emergency H 08/06/2019 09:50:00 [facility] AM EDT - 08/06/2019 Medic al Center 05:53:00 PM EDT Patient discharged. Outpatient 08/06/2019 08:44:00 AM EDT [facility] Emergency H 08/06/2019 12:32:00 AM EDT - 019 [facility] 02:25:00 AM EDT Patient discharged. Outpatient 08/06/2019 [facility] 12:00:00 AM EDT Medical C enter Outpatient Attender: Carmen Redding 08/01/2019 [facility] VelezAdmitter: 04:36:00 PM EDT Medic [facility] Carmen NinoReferrer: Carmen iNno OutpatientWell Visit, Attender: [facility] 08/01/2019 JESSE ([facility],40-64years Kimberly 04:36:00 PM EDT - J osep 08/01/2019 Medical 04:36:00 PM EDT Center) Outpatient 08/01/2019 [facility] 03:31:00 PM EDT Medical C enter Outpatient 08/01/2019 [facility] 12:00:00 AM EDT Medical C enter Outpatient 07/30/2019 [facility] 03:24:00 PM EDT Medical C enter Outpatient 07/30/2019 [facility] 12:00:00 AM EDT Medical C enter Attender: [facility] 07/24/2019 PAOLO Davis ([facility] 11:52:00 AM EDT [facility] 07/24/2019 Medical 11:52:00 AM EDT Center) Outpatient 07/18/2019 [facility] 02:38:00 PM EDT Medical C enter Outpatient Attender: Carmen Redding 07/18/2019 [facility] VelezAdmitter: 09:03:00 AM EDT Medic al Center Carmen NinoReferrer: Carmen Nino OutpatientOFFICE/OUTP Attender: [facility] 07/18/2019 JESSE ([facility] 09:03:00 AM EDT [facility] 07/18/2019 Medical 09:03:00 AM EDT Center) Outpatient 07/18/2019 [facility] 12:00:00 AM EDT Medical C enter Outpatient 07/17/2019 [facility] 11:01:00 AM EDT Medical C enter Outpatient 07/17/2019 [facility] 12:00:00 AM EDT Medical C enter Attender: Siri [facility] 07/05/2019 [facility] 02:07:00 PM EDT [facility] 07/05/2019 Medical 02:07:00 PM EDT Center) Outpatient 07/03/2019 [facility] 04:43:00 PM EDT Medical C enter Outpatient Attender: Siri Redding 07/03/2019 [facility] Gaetanodmitter: 01:35:00 PM EDT Ny dical Center Siri Wallerrer: Siri Medina OutpatientOFFICE/OUTP Attender: [facility] 07/03/2019 NEXTGEN ([facility] EST Center 01:35:00 PM EDT [facility] 07/03/2019 Medical 01:35:00 PM EDT Center) Attender: [facility] 07/03/2019 NEXTGE N ([facility] 10:49:00 AM EDT - [facility] 07/03/2019 Medical 10:49:00 AM EDT Center) Outpatient 07/03/2019 [facility] 12:00:00 AM EDT Medical C enter Outpatient Attender: RAFAEL Redding 05/28/2019 [facility] Tasha SUN 10:05:00 AM EDT Medical Center KIMBERLYAAdmitter: RAFAEL HALL Medications Medication Brand Start Product Dose Route Administrative Pharmacy [facility] Indications Reaction Description Data Name Date Form Instructions Instructions Source(s) Ciprofloxac Ciprod .00 Not active Ciprofl oxaci NEXTGEN in 3 MG/ML ex 0.3 2020 drop Applic n 3 MG/ML / ([facility] / %-0.1 12:00: able Dexamethason Kale phs Dexamethaso % ear 00 AM e 1 MG/ML M edical ne 1 MG/ML drops, EDT Otic Center) Otic suspen Suspension Suspension erum [Ciprodex] [Ciprodex] Ciprodex 0.3 %-0.1 % ear drops,suspe nsion montelukast clarissa 1.00 ORAL active take 1 NEXTGEN 10 MG Oral ukast 2019 {tabl tablet by (S aint Tablet 10 mg 12:00: et} oral route Kale phs montelukast tablet 00 AM every day in Medical 10 mg EDT the evening Center) tablet 200 ACTUAT Ventol 04/ 2.00 RESPIR active [id number] NEXTGEN Albuterol in HFA 2019 {puff ATORY 200 ACTUAT (Saint 0.09 90 12:00: } (INHAL albuterol Edd s MG/ACTUAT mcg/ac 00 AM ATION) 0.09 Medic al Metered tuatio EDT MG/ACTUAT Cente r) Dose n Metered Dose Inhaler aeroso Inhaler [Ventolin] l [Ventolin] Ventolin inhale HFA 90 r mcg/actuati on aerosol inhaler cetirizine Zyrtec 02/27/ cetirizi ne NEXTGEN hydrochlori 10 mg 2019 hydrochlorid (Saint de 10 MG capsul 12:00: e 10 MG Oral Anel Oral e 00 AM Capsule Medical Capsule EDT [Zyrtec] Center) [Zyrtec] Zyrtec 10 mg capsule cetirizine Zyrtec complet cetiriz ine NEXTGEN hydrochlori 10 mg 2019 ed hydrochlorid (Saint de 10 MG capsul 12:00: e 10 MG Oral Anel Oral e 00 AM Capsule Medical Capsule EDT [Zyrtec] Center) [Zyrtec] Zyrtec 10 mg capsule Medication administered onsite Prednisone 20 MG prednisone 20 02/28/2020 active Take three NEXTGEN Oral Tablet mg tablet 12:00:00 AM t ablets the (Saint prednisone 20 mg EDT first da y Anel tablet and two Medical tablets for Center) two more days for a total of three days. 120 ACTUAT Flovent HFA 220 02/28/2020 1. RESPIR active 120 ACTUAT NEXTGEN Fluticasone mcg/actuation 12:00:00 AM 00 ATORY fluticasone ([facility] propionate 0.22 aerosol inhaler EDT {p (INHAL propionate Anel MG/ACTUAT uf ATION) 0.22 Medical Metered Dose f} MG/ACTUAT Ce nter) Inhaler Metered Dose [Flovent] Inhaler Flovent HFA 220 [Flovent] mcg/actuation aerosol inhaler Amoxicillin 875 Augmentin 875 01/23/2020 1. ORAL completed Amoxicillin NEXTGEN MG / Clavulanate mg-125 mg 12:00:00 AM 00 875 MG / (Saint 125 MG Oral tablet EDT {t Clavulanate Anel Tablet bl 125 MG Oral Medica l [Augmentin] } Tablet Center ) Augmentin 875 [Augmentin] mg-125 mg tablet Prednisone 20 MG prednisone 20 12/05/2019 complete d Take three NEXTGEN Oral Tablet mg tablet 12:00:00 AM t ablets the (Saint prednisone 20 mg EST first da y Anel tablet and two Medical tablets for Center) two more days for a total of three days. cetirizine Zyrtec 10 mg 12/05/2019 completed cetirizine NEXTGEN hydrochloride 10 capsule 12:00:00 AM hydrochlorid (Saint MG Oral Capsule EST e 10 MG O ral Anel [Zyrtec] Zyrtec Capsule M edical 10 mg capsule [Zyrtec] Ce nter) Amoxicillin 875 Augmentin 875 11/01/2019 1. ORAL completed Amoxicillin NEXTGEN MG / Clavulanate mg-125 mg 12:00:00 AM 00 875 MG / ([facility] 125 MG Oral tablet EST {t Clavulanate Anel Tablet bl 125 MG Oral Medica l [Augmentin] } Tablet Center ) Augmentin 875 [Augmentin] mg-125 mg tablet Loratadine 10 MG loratadine 10 10/05/2019 1. ORAL complete d take 1 NEXTGEN Disintegrating mg 12:00:00 AM 00 tab let by ([facility] Oral Tablet disintegrating EST {t ora l route Anel loratadine 10 mg tablet bl every day Medical disintegrating } and place on Center) tablet top of the tongue where it will dissolve, then swallow Diphenhydramine Benadryl 25 mg 10/05/2019 2 ORAL active diphenhydram NEXTGEN Hydrochloride 25 capsule 12:00:00 AM {c ine ([facility] MG Oral Capsule EST ap hydrochlo rid Anel [Benadryl] nix e 25 MG Oral M edical Benadryl 25 mg le Capsule Ce nter) capsule } [Benadryl] Medrol (Marco A) 4 {21 10/05/2019 completed Medrol NEXTGEN mg tablets in a (Methylpredniso 12:00:00 AM Dosepak ([facility] dose pack lone 4 MG Oral EST Anel Tablet) } Pack Medic al Center) Sulfamethoxazole Bactrim DS 800 10/05/2019 1. ORAL active Sulfamethoxa NEXTGEN 800 MG / mg-160 mg 12:00:00 AM 00 zole 800 MG ([facility] Trimethoprim 160 tablet EST {t / J osephs MG Oral Tablet bl Trimethopr im Medical [Bactrim] } [address]) Bactrim DS 800 Tablet mg-160 mg tablet [Bactrim ] halobetasol halobetasol 07/18/2019 TOPICA completed apply by NEXTGEN propionate propionate 0.05 12:00:00 AM L topical ([facility] 0.0005 MG/MG % topical EDT route every Anel Topical Ointment ointment day a thin Medical halobetasol layer to the Center) propionate 0.05 affected % topical area(s) do ointment not exceed 50 grams per week or 2 weeks duration Calcium Calcium 500 07/03/2019 active ta ke tablet NEXTGEN Carbonate 1250 With D 500 mg 12:00:00 AM once a day ([facility] MG / (1,250 mg)-400 EDT [facility] hs Cholecalciferol unit tablet Medical 0.01 MG Oral Center) Tablet Calcium 500 With D 500 mg (1,250 mg)-400 unit tablet Cefuroxime 500 cefuroxime 06/27/2019 completed take 1 NEXTGEN MG Oral Tablet axetil 500 mg 12:00:00 AM tablet by ([facility] cefuroxime tablet EDT oral route J osephs axetil 500 mg every 12 Me dical tablet hours x 10 Center) days 120 ACTUAT Flovent HFA 220 06/04/2019 1. RESPIR completed 120 ACTUAT NEXTGEN Fluticasone mcg/actuation 12:00:00 AM 00 ATORY Fluticasone ([facility] propionate 0.22 aerosol inhaler EDT {p (INHAL propionate Anel MG/ACTUAT uf ATION) 0.22 Medical Metered Dose f} MG/ACTUAT Ce nter) Inhaler Metered Dose [Flovent] Inhaler Flovent HFA 220 [Flovent] mcg/actuation aerosol inhaler Ibuprofen 400 MG ibuprofen 400 06/04/2019 1. ORAL complete d take 1 NEXTGEN Oral Tablet mg tablet 12:00:00 AM 00 t ablet by ([facility] ibuprofen 400 mg EDT {t oral rou te Anel tablet bl every 4 - 6 Medica l } hours as Center) needed as needed Meclizine meclizine 25 mg 05/31/2019 1. ORAL completed take 1 NEXTGEN Hydrochloride 25 tablet 12:00:00 AM 00 tablet by ([facility] MG Oral Tablet EDT {t oral route 3 Anel meclizine 25 mg bl times eryn ry Medical tablet } day as Center) needed montelukast 10 montelukast 10 12/18/2018 1. ORAL completed take 1 NEXTGEN MG Oral Tablet mg tablet 12:00:00 AM 00 tablet by ([facility] montelukast 10 EST {t oral route Anel mg tablet bl every day in [place] dical } the evening Center) 200 ACTUAT Ventolin HFA 90 10/30/2018 2. RESPIR completed [id number] NEXTGEN Albuterol 0.09 mcg/actuation 12:00:00 AM 00 ATORY 200 ACTUAT ([facility] MG/ACTUAT aerosol inhaler EST {p (INHAL Al buterol Anel Metered Dose uf ATION) 0.09 Medic al Inhaler f} MG/ACTUAT Center) [Ventolin] Metered Dose Ventolin HFA 90 Inhaler mcg/actuation [Ventolin] aerosol inhaler Insurance Providers Payer name Policy type Policy ID Covered Covered libertarian's Policy P eun / Coverage libertarian ID relationship to Crzu Inf ormation type cruz AFFINITY [id number] SP [id number] AFFINITY O [id number] 01 [id number] HEALTH PLAN [place] O [id number] 01 [id number] HEALTH-AFFINIT Y CLMS AFFINITY [id number] SP [id number] ESSENTIAL PLAN 1 2 AFFINITY O [id number] 01 [id number] HEALTH PLAN AFFINITY O [id number] 01 [id number] HEALTH PLAN AFFINITY [id number] SP [id number] ESSENTIAL PLAN 1 2 O [id number] AFFINITY O [id number] 01 [id number] ESSENTIALS-COM MERCIAL O [id number] 01 [id number] "" O [id number] 01 [id number] AFFINITY O [id number] 01 [id number] ESSENTIALS-COM MERCIAL AFFINITY O 1 01 1 ESSENTIALS-COM MERCIAL AFFINITY O [id number] 01 [id number] 400 ESSENTIALS PLAN 2 AFFINITY [id number] AFFINITY [id number] Problems, Conditions, and Diagnoses Code Display Name Description Problem Type Effective Data Dates Source(s) J45.909 Unspecified asthma, UNSPECIFIED Diagnosis 02/28/2020 [facility] Tam uncomplicated ASTHMA, 09:10:00 AM Medical UNCOMPLICATED EDT Center H65.492 Other chronic OTHER CHRONIC Diagnosis 02/28/2020 [facility] ospina nonsuppurative NONSUPPURATIVE 09:10:00 AM Medic al otitis media, left OTITIS MEDIA, LEFT EDT Center ear EAR Y93.9 Activity, ACTIVITY, Diagnosis 02/28/2020 [facility] unspecified UNSPECIFIED 09:10:00 AM Medical EDT Center X58.XXXA Exposure to other EXPOSURE TO OTHER Diagnosis 02/28/2020 [facility] specified factors, SPECIFIED FACTORS, 09:10:00 AM Medical initial encounter INITIAL ENCOUNTER EDT Center T78.40XA Allergy, ALLERGY, Diagnosis 02/28/2020 [facility] unspecified, UNSPECIFIED, 09:10:00 AM Medical initial encounter INITIAL ENCOUNTER EDT Center Z71.89 Other specified OTHER SPECIFIED Diagnosis 01/23/2020 Iesha Tam counseling COUNSELING 05:11:00 PM Medical EDT Center Z71.9 Counseling, COUNSELING, Diagnosis 01/23/2020 [facility] Puga s unspecified UNSPECIFIED 05:11:00 PM Medical EDT Center H66.42 Suppurative otitis SUPPURATIVE OTITIS Diagnosis 0 [facility] media, unspecified, MEDIA, 05:11:00 PM Medi melinda left ear UNSPECIFIED, LEFT EDT Center EAR Z12.31 Encounter for ENCNTR SCREEN Diagnosis 01/23/2020 [facility] T[facility] ospina screening mammogram MAMMOGRAM FOR 05:11:00 PM M edical for malignant MALIGNANT NEOPLASM EDT [facility] neoplasm of breast OF BREAST Z46.0 Encounter for ENCOUNTER FOR Diagnosis 01/16/2020 [facility] T[facility] vazquezs fitting and FIT/ADJST OF 05:38:00 PM Medical adjustment of SPECTACLES AND EST Center spectacles and CONTACT LENSES contact lenses H00.033 Abscess of eyelid ABSCESS OF EYELID Diagnosis 12/22/2019 [facility] right eye, RIGHT EYE, 10:55:00 AM Medical unspecified eyelid UNSPECIFIED EYELID EST Center H00.013 Hordeolum externum HORDEOLUM EXTERNUM Diagnosis 0 [facility] right eye, RIGHT EYE, 10:55:00 AM Medical unspecified eyelid UNSPECIFIED EYELID EST Center H01.9 Unspecified UNSPECIFIED Diagnosis 12/22/2019 [facility] Edd dominguez inflammation of INFLAMMATION OF 10:55:00 AM Med ical eyelid EYELID EST Center L50.9 Urticaria, URTICARIA, Diagnosis 12/06/2019 [facility] unspecified UNSPECIFIED 10:14:00 AM Medical EST Center F32.3 Major depressive MAJOR DEPRESSV Diagnosis 11/15/2019 Iesha Tam disorder, single DISORD, SINGLE 08:28:00 AM Med ical episode, severe EPSD, SEVERE W EST Cente r with psychotic PSYCH FEATURES features H66.40 Suppurative otitis SUPPURATIVE OTITIS Diagnosis 9 Anel media, unspecified, MEDIA, 08:43:00 AM Medi melinda unspecified ear UNSPECIFIED, EST Center UNSPECIFIED EAR Z02.89 Encounter for other ENCOUNTER FOR Diagnosis 11/10/2019 Sa amos Tam administrative OTHER 08:43:00 AM Medical examinations ADMINISTRATIVE EST Center EXAMINATIONS Z68.30 Body mass index BODY MASS INDEX Diagnosis 11/01/2019 Iesha Tam (BMI) 30.0-30.9, (BMI) 30.0-30.9, 09:40:00 AM [facility] adult ADULT EST Center H66.90 Otitis media, OTITIS MEDIA, Diagnosis 11/01/2019 [facility] Tasha ospina unspecified, UNSPECIFIED, 09:40:00 AM Medical unspecified ear UNSPECIFIED EAR EST Cent er Z11.1 Encounter for ENCOUNTER FOR Diagnosis 11/01/2019 [facility] Tasha ospina screening for SCREENING FOR 09:40:00 AM Medical respiratory RESPIRATORY EST Center tuberculosis TUBERCULOSIS J40 Bronchitis, not BRONCHITIS, NOT Diagnosis 10/29/2019 Iesha Tam specified as acute SPECIFIED ACUTE 06:56:00 PM Medical or chronic OR CHRONIC EST Center R06.00 Dyspnea, DYSPNEA, Diagnosis 10/29/2019 [facility] unspecified UNSPECIFIED 06:56:00 PM Medical EST Center L72.3 Sebaceous cyst SEBACEOUS CYST Diagnosis 10/05/2019 [facility] 09:25:00 AM Medical EST Center L72.9 Follicular cyst of FOLLICULAR CYST OF Diagnosis 9 [facility] the skin and THE SKIN AND 01:04:00 AM Medical subcutaneous SUBCUTANEOUS EST Center tissue, unspecified TISSUE, UNSP R21 Rash and other RASH AND OTHER Diagnosis 09/26/2019 [facility] nonspecific skin NONSPECIFIC SKIN 01:04:00 AM M edical eruption ERUPTION EST Center L03.90 Cellulitis, CELLULITIS, Diagnosis 09/26/2019 [facility] Edd dominguez unspecified UNSPECIFIED 01:04:00 AM Medical EST Center Y99.9 Unspecified UNSPECIFIED Diagnosis 09/26/2019 [facility] Edd dominguez external cause EXTERNAL CAUSE 01:04:00 AM Medic al status STATUS EST Center Y92.[address] Diagnosis 09/26/2019 [facility] or not applicable OR NOT APPLICABLE 01:04:00 AM Medical EST Center Y99.8 Other external OTHER EXTERNAL Diagnosis 09/17/2019 [facility] cause status CAUSE STATUS 04:17:00 PM Medical EST Center Y92.[address] IN UNSP Diagnosis 09/17/2019 [facility] in unspecified NON-INSTITUT 04:17:00 PM Medical non-institutional (PRIVATE) EST Center (private) residence RESIDENCE PLACE as the place of occurrence of the external cause T78.1XXA Other adverse food OTH ADVERSE FOOD Diagnosis 09/17/2019 [facility] reactions, not REACTIONS, NOT 04:17:00 PM Medic al elsewhere ELSEWHERE EST Center classified, initial CLASSIFIED, INIT encounter I63.9 Cerebral CEREBRAL Diagnosis 08/06/2019 [facility] infarction, INFARCTION, 09:50:00 AM Medical unspecified UNSPECIFIED EDT Center W57.XXXA Bitten or stung by BIT/STUNG BY Diagnosis 08/06/2019 Iesha Tam nonvenomous insect NONVENOM INSECT 12:32:00 AM Medical and other and OTH NONVENOM EDT Center nonvenomous ARTHROPODS, INIT arthropods, initial encounter T78.49XA Other allergy, OTHER ALLERGY, Diagnosis 08/06/2019 [facility] initial encounter INITIAL ENCOUNTER 12:32:00 AM Medical EDT Center S40.861A Insect bite INSECT BITE Diagnosis 08/06/2019 [facility] Edd dominguez (nonvenomous) of (NONVENOMOUS) OF 12:32:00 AM M edical right upper arm, RIGHT UPPER ARM, EDT Ce nter initial encounter INIT ENCNTR S40.862A Insect bite INSECT BITE Diagnosis 08/06/2019 [facility] Edd dominguez (nonvenomous) of (NONVENOMOUS) OF 12:32:00 AM M edical left upper arm, LEFT UPPER ARM, EDT Cent er initial encounter INIT ENCNTR S00.86XA Insect bite INSECT BITE Diagnosis 08/06/2019 [facility] Edd dominguez (nonvenomous) of (NONVENOMOUS) OF 12:32:00 AM M edical other part of head, OTHER PART OF EDT Ce nter initial encounter HEAD, INIT ENCNTR E11.9 Type 2 diabetes TYPE 2 DIABETES Diagnosis 08/01/2019 Iesha Tam mellitus without MELLITUS WITHOUT 04:36:00 PM M edical complications COMPLICATIONS EDT Center Z00.00 Encounter for ENCNTR FOR GENERAL Diagnosis 08/01/2019 Arthur Tam general adult ADULT MEDICAL EXAM 04:36:00 PM Me dical medical examination W/O ABNORMAL EDT [facility] without abnormal FINDINGS findings Z68.32 Body mass index BODY MASS INDEX Diagnosis 07/18/2019 Iesharajat Tam (BMI) 32.0-32.9, (BMI) 32.0-32.9, 09:03:00 AM edical adult ADULT EDT Center L30.9 Dermatitis, DERMATITIS, Diagnosis 07/18/2019 [facility] Edd dominguez unspecified UNSPECIFIED 09:03:00 AM Medical EDT Center N13.30 Unspecified UNSPECIFIED Diagnosis 07/18/2019 [facility] Edd dominguez hydronephrosis HYDRONEPHROSIS 09:03:00 AM Medic al EDT Center R10.9 Unspecified UNSPECIFIED Diagnosis 07/18/2019 [facility] Edd dominguez abdominal pain ABDOMINAL PAIN 09:03:00 AM Medic al EDT Center M85.89 Other specified OTH DISRD OF BONE Diagnosis 07/03/2019 Sa amos Tam disorders of bone DENSITY AND 01:35:00 PM Medic al density and STRUCTURE, EDT Center structure, multiple MULTIPLE SITES sites R10.10 Upper abdominal UPPER ABDOMINAL Diagnosis 07/03/2019 Iesha t Anel pain, unspecified PAIN, UNSPECIFIED 01:35:00 PM Medical EDT Center H72.92 Unspecified UNSPECIFIED Diagnosis 07/03/2019 [facility] Edd dominguez perforation of PERFORATION OF 01:35:00 PM Medic al tympanic membrane, TYMPANIC MEMBRANE, EDT Center left ear LEFT EAR Surgeries/Procedures Procedure Description Date Indications Data Source(s) OFFICE/OUTPATIENT 02/28/2020 JESSE Tam VISIT, EST 12:00:00 AM EDT - Medical Ce nter) 02/28/2020 12:00:00 AM EDT OFFICE/OUTPATIENT 01/23/2020 NEXTGEN (S aint Anel VISIT, EST 12:00:00 AM EDT - Medical Ce nter) 01/23/2020 12:00:00 AM EDT OFFICE/OUTPATIENT 01/16/2020 NEXTGEN (S aint Anel VISIT, EST 12:00:00 AM EST - Medical Ce nter) 01/16/2020 12:00:00 AM EST OFFICE/OUTPATIENT 12/05/2019 NEXTGEN (S aint Anel VISIT, EST 12:00:00 AM EST - Medical Ce nter) 12/05/2019 12:00:00 AM EST Benadryl Liquid 12/05/2019 NEXTGEN (Arthur nt Anel 12.5mg/5ml1 12:00:00 AM EST - Medical Ce nter) 12/05/2019 12:00:00 AM EST OFFICE/OUTPATIENT 11/10/2019 NEXTGEN (S aint Anel VISIT, EST 12:00:00 AM EST - Medical Ce nter) 11/10/2019 12:00:00 AM EST OFFICE/OUTPATIENT 11/01/2019 NEXTGEN (S aint Anel VISIT, EST 12:00:00 AM EST - Medical Ce nter) 11/01/2019 12:00:00 AM EST OFFICE/OUTPATIENT 10/05/2019 NEXTGEN (S aint Anel VISIT, EST 12:00:00 AM EST - Medical Ce nter) 10/05/2019 12:00:00 AM EST Well Visit, 08/01/2019 NEXTGEN ([facility] Est,40-64years 12:00:00 AM EDT - Medical Center) 08/01/2019 12:00:00 AM EDT OFFICE/OUTPATIENT 07/18/2019 NEXTGEN (S aint Anel VISIT, EST 12:00:00 AM EDT - Medical Ce nter) 07/18/2019 12:00:00 AM EDT OFFICE/OUTPATIENT 07/03/2019 NEXTGEN (S aint Anel VISIT, EST 12:00:00 AM EDT - Medical Ce nter) 07/03/2019 12:00:00 AM EDT Results ID Date Data Source [id number] 09/26/2019 02:24:00 AM EST [facility] 0500 Name Value Range Interpretation Description Data Sup porting Code Source(s) Document(s ) Leukocytes 4.4-11.0 Above high <content [facility] [#/volume] in normal styleCode="Bold Anel Blood by ">White Blood Medical Automated count Cell Count Center </content>12.93 KCUMM H<content styleCode="Ital ics"> (4.4-11.0 KCUMM)</content > Erythrocyte mean 80.0-100 <content [facility] corpuscular .0 styleCode="Bold Anel volume [Entitic ">Mean Medical volume] by Corpuscular Center Automated count Volume </content>90.8 FL<content styleCode="Ital ics"> (80.0-100.0 FL)</content> Erythrocytes 4.0-5.1 <content [facility] [#/volume] in styleCode="Bold Anel Blood by ">Red Blood Medical Automated count Cell Count Center </content>4.78 MCUMM<content styleCode="Ital ics"> (4.0-5.1 MCUMM)</content > Hematocrit 36.0-46. <content [facility] [Volume 0 styleCode="Bold Anel Fraction] of ">Hematocrit Medical Blood by </content>43.4 Center Automated count %<content styleCode="Ital ics"> (36.0-46.0 %)</content> Erythrocyte mean 26.0-34. <content [facility] corpuscular 0 styleCode="Bold Anel hemoglobin ">Mean Medical [Entitic mass] Corposcular Center by Automated Hemoglobin count </content>28.7 PG<content styleCode="Ital ics"> (26.0-34.0 PG)</content> Hemoglobin 12.3-16. <content [facility] [Mass/volume] in 0 styleCode="Bold Anel Blood ">Hemoglobin Medical </content>13.7 Center G/DL<content styleCode="Ital ics"> (12.3-16.0 G/DL)</content> Erythrocyte 11.5-14. Above high <content [facility] distribution 5 normal styleCode="Bold Anel width [Ratio] by ">Red Cell Medical Automated count Distribution Center Width </content>15.0 % H<content styleCode="Ital ics"> (11.5-14.5 %)</content> Platelets 130-400 <content [facility] [#/volume] in styleCode="Bold Anel Blood by ">Platelet Medical Automated count Count Center </content>337 KCUMM<content styleCode="Ital ics"> (130-400 KCUMM)</content > UNK 0 <content [facility] styleCode="Bold Anel ">Nucleated Red Medical Blood Cell Center </content>0.0 /100<content styleCode="Ital ics"> (0 /100)</content> Erythrocyte mean 32.0-37. Below low normal <content [facility] corpuscular 0 styleCode="Bold Anel hemoglobin ">Mean Corpus. Medical concentration Hgb Center [Mass/volume] by Concentration Automated count (MCHC) </content>31.6 G/DL L<content styleCode="Ital ics"> (32.0-37.0 G/DL)</content> Platelet mean 8.0-11.0 <content [facility] volume [Entitic styleCode="Bold Anel volume] in Blood ">Mean Platelet Medical by Automated Volume Center count </content>11.0 FL<content styleCode="Ital ics"> (8.0-11.0 FL)</content> UNK 0.0 <content [facility] styleCode="Bold Anel ">Nucleated Red Medical Blood Cell Center Count </content>0.00 KCUMM<content styleCode="Ital ics"> (0.0 KCUMM)</content > ID Date Data Source GFR(Creatinine).[id number] 09/26/2019 02:24:00 AM EST [facility] 0-0500 Name Value Range Interpretation Code Description Data Naomi rce(s) Supporting Document(s ) UNK > 60 <content [facility] styleCode="Bold"> Medical Cent er EGFR </content>94 GFR<content styleCode="Italic s"> (> 60 GFR)</content> ID Date Data Source [id number] 09/26/2019 02:24:00 AM EST [facility] Name Value Range Interpretation Description Data Sup porting Code Source(s) Document(s ) Sodium 137-145 <content [facility] [Moles/volume] styleCode="Randi Anel in Serum or d">Sodium Medical Plasma </content>140 Center MEQ/L<content styleCode="Paige lics"> (137-145 MEQ/L)</conten t> Potassium 3.5-5.3 <content [facility] [Moles/volume] styleCode="Randi Anel in Serum or d">Potassium Medical Plasma </content>4.5 Center MEQ/L<content styleCode="Paige lics"> (3.5-5.3 MEQ/L)</conten t> Carbon 22-30 <content [facility] dioxide, total styleCode="Randi Anel [Moles/volume] d">Carbon Medical in Serum or Dioxide Center Plasma </content>25 MEQ/L<content styleCode="Paige lics"> (22-30 MEQ/L)</conten t> Creatinine 0.5-1.3 <content [facility] [Mass/volume] styleCode="Randi Anel in Serum or d">Creatinine Medical Plasma </content>0.7 Center MG/DL<content styleCode="Paige lics"> (0.5-1.3 MG/DL)</conten t> Chloride 98-107 <content [facility] [Moles/volume] styleCode="Randi Anel in Serum or d">Chloride Medical Plasma </content>107 Center MEQ/L<content styleCode="Paige lics"> (98-107 MEQ/L)</conten t> Glucose 74-106 <content [facility] [Mass/volume] styleCode="Randi Anel in Serum or d">Glucose Medical Plasma </content>91 Center MG/DL<content styleCode="Paige lics"> (74-106 MG/DL)</conten t> UNK 7-17 <content [facility] styleCode="Randi Anel d">BUN Medical </content>10 Center MG/DL<content styleCode="Paige lics"> (7-17 MG/DL)</conten t> Calcium 8.4-10.2 <content [facility] [Mass/volume] styleCode="Randi Tam in Serum or d">Calcium Medical Plasma </content>9.2 Center MG/DL<content styleCode="Paige lics"> (8.4-10.2 MG/DL)</conten t> UNK > 60 <content [facility] styleCode="Randi Anel d">EGFR Medical </content>94 Center GFR<content styleCode="Paige lics"> (> 60 GFR)</content> ID Date Data Source [id number] 08/06/2019 11:35:00 AM EDT [facility] 400 Name Value Range Interpretation Code Description Data Naomi rce(s) Supporting Document(s ) UNK <item><content [facility] styleCode="Bold"> Medical Cent er Culture Status </content>
<t able><tbody><tr>< td>Specimen Number:</td><td>[id number]</td></tr ><tr><td>Sample Collection Date/Time: </td><td> 9 11:35 AM</td></tr><tr>< td>Specimen Source:</td><td>B LOOD</td></tr><tr ><td>Blood Culture:</td><td> Collection Plate Date: 08/06/2019 11:45 </td></tr><tr><td >Culture Report:</td><td>N O GROWTH 5 DAYS </td></tr><tr><td >Culture Status:</td><td>F inal </td></tr></tbody ></table></item> UNK <item><content [facility] styleCode="Bold"> Medical Cent er Culture Report </content>
<t able><tbody><tr>< td>Specimen Number:</td><td>[id number]</td></tr ><tr><td>Sample Collection Date/Time: </td><td> 11:35 AM</td></tr><tr>< td>Specimen Source:</td><td>B LOOD</td></tr><tr ><td>Blood Culture:</td><td> Collection Plate Date: 08/06/2019 11:45 </td></tr><tr><td >Culture Report:</td><td>N O GROWTH 5 DAYS </td></tr><tr><td >Culture Status:</td><td>F inal </td></tr></tbody ></table></item> ID Date Data Source [id number] 08/06/2019 11:15:00 AM EDT [facility] 400 Name Value Range Interpretation Code Description Data Naomi rce(s) Supporting Document(s ) UNK <item><content [facility] styleCode="Bold"> Medical Cent er Culture Report </content>
<t able><tbody><tr>< td>Specimen Number:</td><td>[id number]</td></tr ><tr><td>Sample Collection Date/Time: </td><td> 11:15 AM</td></tr><tr>< td>Specimen Source:</td><td>F SUZAN</td></tr><tr> <td>Wound Culture:</td><td> Collection Plate Date: 08/06/2019 11:25 </td></tr><tr><td >Culture Status:</td><td>F inal </td></tr><tr><td >Culture Report:</td><td>C ulture in progress </td></tr><tr><td >Gram Stain:</td><td>RA RE GRAM POSITIVE COCCI IN CLUSTERS </td></tr><tr><td >Preliminary 1:</td><td>FEW STAPH SPECIES </td></tr><tr><td >Organism 1:</td><td>STAPHY LOCOCCUS AUREUS MRSA </td></tr></tbody ></table>
<ta ble border="2"><tbody ><tr><td></td><td >1</td></tr><tr>< td>Comment</td><t d></td></tr><tr>< td>Result Value</td><td>STA PHYLOCOCCUS AUREUS MRSA </td></tr><tr><td >Result Status</td><td>Fi nal Result</td></tr>< tr><td>AMPICILLIN </td><td>>8 R</td></tr><tr><t d>AMPICILLIN SULBACTAM</td><td ><=8/4 R</td></tr><tr><t d>AUGMENTIN</td>< td><=4/2 R</td></tr><tr><t d>CEFAZOLIN</td>< td><=8 R</td></tr><tr><t d>CEFTRIAXONE</td ><td><=8 R</td></tr><tr><t d>CHLORAMPHENICOL </td><td><= 8 S</td></tr><tr><t d>CLINDAMYCIN</td ><td><= 0.5 S</td></tr><tr><t d>DAPTOMYCIN</td> <td>1 S</td></tr><tr><t d>ERYTHROMYCIN</t d><td>> 4 R</td></tr><tr><t d>GENTAMICIN</td> <td><= 4 S</td></tr><tr><t d>IMIPENEM</td><t d><= 4 R</td></tr><tr><t d>LEVOFLOXACIN</t d><td>> 4 R</td></tr><tr><t d>LINEZOLID</td>< td>4 S</td></tr><tr><t d>MEROPENEM</td>< td><= 4 R</td></tr><tr><t d>MOXIFLOXACIN</t d><td><= 2 S</td></tr><tr><t d>OXACILLIN</td>< td>> 2 R</td></tr><tr><t d>PENICILLIN</td> <td>>8 R</td></tr><tr><t d>RIFAMPIN</td><t d><= 1 S</td></tr><tr><t d>SYNERCID</td><t d><= 0.5 S</td></tr><tr><t d>TETRACYCLINE</t d><td><= 4 S</td></tr><tr><t d>TRIMETHOPRIM/NIX LFAMETHOXAZOLE</t d><td><=0.5/9.5 S</td></tr><tr><t d>VANCOMYCIN</td> <td>2 S</td></tr></tbod y></table></item> UNK <item><content [facility] styleCode="Bold"> Medical [facility] er Culture Report </content>
<t able><tbody><tr>< td>Specimen Number:</td><td>[id number]</td></tr ><tr><td>Sample Collection Date/Time: </td><td> 9 11:15 AM</td></tr><tr>< td>Specimen Source:</td><td>B LOOD</td></tr><tr ><td>Blood Culture:</td><td> Collection Plate Date: 08/06/2019 11:45 </td></tr><tr><td >Culture Status:</td><td>F inal </td></tr><tr><td >Culture Report:</td><td>N O GROWTH 5 DAYS </td></tr></tbody ></table></item> UNK <item><content [facility] styleCode="Bold"> Medical Cent er Culture Status </content>
<t able><tbody><tr>< td>Specimen Number:</td><td>[id number]</td></tr ><tr><td>Sample Collection Date/Time: </td><td> 11:15 AM</td></tr><tr>< td>Specimen Source:</td><td>F SUZAN</td></tr><tr> <td>Gram Stain:</td><td>RA RE GRAM POSITIVE COCCI IN CLUSTERS </td></tr><tr><td >Preliminary 1:</td><td>FEW STAPH SPECIES </td></tr><tr><td >Culture Status:</td><td>F inal </td></tr><tr><td >Culture Report:</td><td>C ulture in progress </td></tr><tr><td >Wound Culture:</td><td> Collection Plate Date: 08/06/2019 11:25 </td></tr><tr><td >Organism 1:</td><td>STAPHY LOCOCCUS AUREUS MRSA </td></tr></tbody ></table>
<ta ble border="2"><tbody ><tr><td></td><td >1</td></tr><tr>< td>Comment</td><t d></td></tr><tr>< td>Result Value</td><td>STA PHYLOCOCCUS AUREUS MRSA </td></tr><tr><td >Result Status</td><td>Fi nal Result</td></tr>< tr><td>AMPICILLIN </td><td>>8 R</td></tr><tr><t d>AMPICILLIN SULBACTAM</td><td ><=8/4 R</td></tr><tr><t d>AUGMENTIN</td>< td><=4/2 R</td></tr><tr><t d>CEFAZOLIN</td>< td><=8 R</td></tr><tr><t d>CEFTRIAXONE</td ><td><=8 R</td></tr><tr><t d>CHLORAMPHENICOL </td><td><= 8 S</td></tr><tr><t d>CLINDAMYCIN</td ><td><= 0.5 S</td></tr><tr><t d>DAPTOMYCIN</td> <td>1 S</td></tr><tr><t d>ERYTHROMYCIN</t d><td>> 4 R</td></tr><tr><t d>GENTAMICIN</td> <td><= 4 S</td></tr><tr><t d>IMIPENEM</td><t d><= 4 R</td></tr><tr><t d>LEVOFLOXACIN</t d><td>> 4 R</td></tr><tr><t d>LINEZOLID</td>< td>4 S</td></tr><tr><t d>MEROPENEM</td>< td><= 4 R</td></tr><tr><t d>MOXIFLOXACIN</t d><td><= 2 S</td></tr><tr><t d>OXACILLIN</td>< td>> 2 R</td></tr><tr><t d>PENICILLIN</td> <td>>8 R</td></tr><tr><t d>RIFAMPIN</td><t d><= 1 S</td></tr><tr><t d>SYNERCID</td><t d><= 0.5 S</td></tr><tr><t d>TETRACYCLINE</t d><td><= 4 S</td></tr><tr><t d>TRIMETHOPRIM/NIX LFAMETHOXAZOLE</t d><td><=0.5/9.5 S</td></tr><tr><t d>VANCOMYCIN</td> <td>2 S</td></tr></tbod y></table></item> UNK <item><content [facility] styleCode="Bold"> Medical Cent er Culture Status </content>
<t able><tbody><tr>< td>Specimen Number:</td><td>[id number]</td></tr ><tr><td>Sample Collection Date/Time: </td><td> 11:15 AM</td></tr><tr>< td>Specimen Source:</td><td>B LOOD</td></tr><tr ><td>Culture Report:</td><td>N O GROWTH 5 DAYS </td></tr><tr><td >Culture Status:</td><td>F inal </td></tr><tr><td >Blood Culture:</td><td> Collection Plate Date: 08/06/2019 11:45 </td></tr></tbody ></table></item> ID Date Data Source Liver 08/06/2019 11:15:00 AM EDT [facility] Profile.[id number] Name Value Range Interpretation Description Data Sup porting Code Source(s) Document(s ) Alanine 7-30 <content [facility] aminotransferase styleCode="Bold"> [facility] hs [Enzymatic Alanine Medical activity/volume] Aminotransferase Center in Serum or Plasma (ALT) </content>22 IU/L<content styleCode="Italic s"> (7-30 IU/L)</content> Alkaline 38-126 Above high <content [facility] phosphatase normal styleCode="Bold"> Anel [Enzymatic Alkaline Medical activity/volume] Phosphatase (ALP) Cente r in Serum or Plasma </content>136 IU/L H<content styleCode="Italic s"> (38-126 IU/L)</content> Aspartate 14-36 <content [facility] aminotransferase styleCode="Bold"> [facility] hs [Enzymatic Aspartate Medical activity/volume] Aminotransferase Center in Serum or Plasma (AST) </content>25 IU/L<content styleCode="Italic s"> (14-36 IU/L)</content> Albumin 3.5-5.0 <content [facility] [Mass/volume] in styleCode="Bold"> Germain hs Serum or Plasma Albumin Medical </content>4.2 Center G/DL<content styleCode="Italic s"> (3.5-5.0 G/DL)</content> Bilirubin.total 0.2-1.3 Below low <content [facility] [Mass/volume] in normal styleCode="Bold"> Germain hs Serum or Plasma Bilirubin Total Medical </content>< 0.2 Center MG/DL L<content styleCode="Italic s"> (0.2-1.3 MG/DL)</content> ID Date Data Source HematologyRou.[id number] 08/06/2019 11:15:00 AM EDT [facility] 0400 Name Value Range Interpretation Description Data Sup porting Code Source(s) Document(s ) Erythrocyte mean 80.0-100 <content [facility] corpuscular .0 styleCode="Bold Anel volume [Entitic ">Mean Medical volume] by Corpuscular Center Automated count Volume </content>91.6 FL<content styleCode="Ital ics"> (80.0-100.0 FL)</content> Hemoglobin 12.3-16. <content [facility] [Mass/volume] in 0 styleCode="Bold Anel Blood ">Hemoglobin Medical </content>12.9 Center G/DL<content styleCode="Ital ics"> (12.3-16.0 G/DL)</content> Leukocytes 4.4-11.0 Above high <content [facility] [#/volume] in normal styleCode="Bold Anel Blood by ">White Blood Medical Automated count Cell Count Center </content>13.48 KCUMM H<content styleCode="Ital ics"> (4.4-11.0 KCUMM)</content > Hematocrit 36.0-46. <content [facility] [Volume 0 styleCode="Bold Anel Fraction] of ">Hematocrit Medical Blood by </content>41.4 Center Automated count %<content styleCode="Ital ics"> (36.0-46.0 %)</content> Erythrocytes 4.0-5.1 <content Saint [#/volume] in styleCode="Bold Anel Blood by ">Red Blood Medical Automated count Cell Count Center </content>4.52 MCUMM<content styleCode="Ital ics"> (4.0-5.1 MCUMM)</content > Platelet mean 8.0-11.0 Above high <content Saint volume [Entitic normal styleCode="Bold Anel volume] in Blood ">Mean Platelet Medical by Automated Volume Center count </content>11.8 FL H<content styleCode="Ital ics"> (8.0-11.0 FL)</content> Erythrocyte mean 26.0-34. <content [facility] corpuscular 0 styleCode="Bold Anel hemoglobin ">Mean Medical [Entitic mass] Corposcular Center by Automated Hemoglobin count </content>28.5 PG<content styleCode="Ital ics"> (26.0-34.0 PG)</content> Erythrocyte mean 32.0-37. Below low normal <content [facility] corpuscular 0 styleCode="Bold Anel hemoglobin ">Mean Corpus. Medical concentration Hgb Center [Mass/volume] by Concentration Automated count (MCHC) </content>31.2 G/DL L<content styleCode="Ital ics"> (32.0-37.0 G/DL)</content> Platelets 130-400 <content Saint [#/volume] in styleCode="Bold Anel Blood by ">Platelet Medical Automated count Count Center </content>300 KCUMM<content styleCode="Ital ics"> (130-400 KCUMM)</content > Erythrocyte 11.5-14. <content [facility] distribution 5 styleCode="Bold Anel width [Ratio] by ">Red Cell Medical Automated count Distribution Center Width </content>14.5 %<content styleCode="Ital ics"> (11.5-14.5 %)</content> Lymphocytes 24.0-44. Below low normal <content Saint [#/volume] in 0 styleCode="Bold Anel Blood by ">Lymphocyte Medical Automated count </content>7.0 % Center L<content styleCode="Ital ics"> (24.0-44.0 %)</content> UNK 1.0-4.8 Below low normal <content Saint styleCode="Bold Anel ">Lymphocyte Medical Count Center </content>0.95 KCUMM L<content styleCode="Ital ics"> (1.0-4.8 KCUMM)</content > UNK 1.6-7.3 Above high <content [facility] normal styleCode="Bold Anel ">Neutrophil Medical Count Center </content>12.07 KCUMM H<content styleCode="Ital ics"> (1.6-7.3 KCUMM)</content > Neutrophils 36-66 Above high <content Saint [#/volume] in normal styleCode="Bold Anel Blood by ">Neutrophil Medical Automated count </content>89.7 Center % H<content styleCode="Ital ics"> (36-66 %)</content> Monocytes 3.0-10.0 Below low normal <content [facility] [#/volume] in styleCode="Bold Anel Blood by ">Monocyte Medical Automated count </content>2.7 % Center L<content styleCode="Ital ics"> (3.0-10.0 %)</content> UNK 0.0-0.6 <content Saint styleCode="Bold Anel ">Eosinophil Medical Count Center </content>0.00 KCUMM<content styleCode="Ital ics"> (0.0-0.6 KCUMM)</content > UNK 0.2-0.9 <content Saint styleCode="Bold Anel ">Monocyte Medical Count Center </content>0.37 KCUMM<content styleCode="Ital ics"> (0.2-0.9 KCUMM)</content > Basophils 0.0-1.0 <content Saint [#/volume] in styleCode="Bold Anel Blood by ">Basophil Medical Automated count </content>0.1 Center %<content styleCode="Ital ics"> (0.0-1.0 %)</content> Eosinophils 0-5.0 <content Saint [#/volume] in styleCode="Bold Anel Blood by ">Eosinophil Medical Automated count </content>0.0 Center %<content styleCode="Ital ics"> (0-5.0 %)</content> UNK < 1 <content Saint styleCode="Bold Anel ">Immature Medical Granulocyte Center Ratio </content>0.5 %<content styleCode="Ital ics"> (< 1 %)</content> UNK 0 <content Saint styleCode="Bold Anel ">Nucleated Red Medical Blood Cell Center </content>0.0 /100<content styleCode="Ital ics"> (0 /100)</content> UNK 0.0-0.3 <content Saint styleCode="Bold Anel ">Basophil Medical Count Center </content>0.02 KCUMM<content styleCode="Ital ics"> (0.0-0.3 KCUMM)</content > UNK 0.0 <content Saint styleCode="Bold Anel ">Nucleated Red Medical Blood Cell Center Count </content>0.00 KCUMM<content styleCode="Ital ics"> (0.0 KCUMM)</content > UNK 0-0.1 <content Saint styleCode="Bold Anel ">Immature Medical Granulocyte Center Count </content>0.07 KCUMM<content styleCode="Ital ics"> (0-0.1 KCUMM)</content > ID Date Data Source GFR(Creatinine).[id number] 08/06/2019 11:15:00 AM EDT [facility] 0-0400 Name Value Range Interpretation Code Description Data Namoi rce(s) Supporting Document(s ) UNK > 60 <content [facility] styleCode="Bold"> Medical Cent er EGFR </content>112 GFR<content styleCode="Italic s"> (> 60 GFR)</content> ID Date Data Source CHMROUTINECCDA.[id number] 08/06/2019 11:15:00 AM EDT [facility] -0400 Name Value Range Interpretation Description Data Sup porting Code Source(s) Document(s ) Protein 6.3-8.2 <content [facility] [Mass/volum styleCode="Bold Medical e] in Serum ">Total Protein Center or Plasma </content>7.6 G/DL<content styleCode="Ital ics"> (6.3-8.2 G/DL)</content> UNK 2.3-3.5 <content [facility] styleCode="Bold Medical ">Globulin Center </content>3.4 G/DL<content styleCode="Ital ics"> (2.3-3.5 G/DL)</content> UNK >= 1.0 <content [facility] styleCode="Bold Medical ">AG Ratio Center </content>1.2 <content styleCode="Ital ics"> (>= 1.0 )</content> ID Date Data Source [facility].[id number] 08/06/2019 11:15:00 AM EDT [facility] Name Value Range Interpretation Description Data Sup porting Code Source(s) Document(s ) Sodium 137-145 <content [facility] [Moles/volume] in styleCode="Bold"> Kale phs Serum or Plasma Sodium Medical </content>142 Center MEQ/L<content styleCode="Italic s"> (137-145 MEQ/L)</content> Glucose 74-106 Above high <content [facility] [Mass/volume] in normal styleCode="Bold"> Germain hs Serum or Plasma Glucose Medical </content>205 Center MG/DL H<content styleCode="Italic s"> (74-106 MG/DL)</content> Chloride 98-107 <content [facility] [Moles/volume] in styleCode="Bold"> Kale phs Serum or Plasma Chloride Medical </content>105 Center MEQ/L<content styleCode="Italic s"> (98-107 MEQ/L)</content> UNK 7-17 <content [facility] styleCode="Bold"> Anel BUN </content>12 Medical MG/DL<content Center styleCode="Italic s"> (7-17 MG/DL)</content> Creatinine 0.5-1.3 <content [facility] [Mass/volume] in styleCode="Bold"> Germain hs Serum or Plasma Creatinine Medical </content>0.6 Center MG/DL<content styleCode="Italic s"> (0.5-1.3 MG/DL)</content> Carbon dioxide, 22-30 <content [facility] total styleCode="Bold"> Anel [Moles/volume] in Carbon Dioxide Medical Serum or Plasma </content>23 Center MEQ/L<content styleCode="Italic s"> (22-30 MEQ/L)</content> Potassium 3.5-5.3 <content [facility] [Moles/volume] in styleCode="Bold"> [facility] Serum or Plasma Potassium Medical </content>4.7 Center MEQ/L<content styleCode="Italic s"> (3.5-5.3 MEQ/L)</content> Alanine 7-30 <content [facility] aminotransferase styleCode="Bold"> Germain hs [Enzymatic Alanine Medical activity/volume] Aminotransferase Center in Serum or Plasma (ALT) </content>22 IU/L<content styleCode="Italic s"> (7-30 IU/L)</content> Alkaline 38-126 Above high <content [facility] phosphatase normal styleCode="Bold"> Anel [Enzymatic Alkaline Medical activity/volume] Phosphatase (ALP) Cente r in Serum or Plasma </content>136 IU/L H<content styleCode="Italic s"> (38-126 IU/L)</content> Calcium 8.4-10. <content [facility] [Mass/volume] in 2 styleCode="Bold"> Germain hs Serum or Plasma Calcium Medical </content>10.0 Center MG/DL<content styleCode="Italic s"> (8.4-10.2 MG/DL)</content> UNK > 60 <content [facility] styleCode="Bold"> [facility] EGFR Medical </content>112 Center GFR<content styleCode="Italic s"> (> 60 GFR)</content> Aspartate 14-36 <content [facility] aminotransferase styleCode="Bold"> Germ[place] hs [Enzymatic Aspartate Medical activity/volume] Aminotransferase Center in Serum or Plasma (AST) </content>25 IU/L<content styleCode="Italic s"> (14-36 IU/L)</content> Albumin 3.5-5.0 <content [facility] [Mass/volume] in styleCode="Bold"> Germain hs Serum or Plasma Albumin Medical </content>4.2 Center G/DL<content styleCode="Italic s"> (3.5-5.0 G/DL)</content> Bilirubin.total 0.2-1.3 Below low <content [facility] [Mass/volume] in normal styleCode="Bold"> Germain hs Serum or Plasma Bilirubin Total Medical </content>< 0.2 Center MG/DL L<content styleCode="Italic s"> (0.2-1.3 MG/DL)</content> ID Date Data Source CHMROUTINECCDA.[id number] 08/01/2019 06:30:00 PM EDT [facility] -0400 Name Value Range Interpretation Description Data Sup porting Code Source(s) Document(s ) UNK Not Established <content [facility] styleCode="Bold Anel ">Microalbumin Medical </content>1.7 Center mg/dL<content styleCode="Ital ics"> (Not Established mg/dL)</content > Procedure Social History Code Duration Value Status Description Data Source(s ) Caffeine Use 07/16/2020 completed NEXTGEN ([facility] nt Details 12:00:00 AM EDT [facility]) Smoking 07/16/2020 Unknown if completed Unknown if ever NEXTGEN ( [facility] 12:00:00 AM EDT ever smoked smoked [facility]) Caffeine Use 04/21/2020 completed coffee and soda, NEXTGE N ([facility] 12:00:00 AM EDT 4 [facility]) Smoking 12/22/2019 Denies Ever completed Denies Ever [facility] 11:29:00 AM EST Smoked Smoked Medical C enter Smoking 12/22/2019 Denies Ever completed Denies Ever [facility] 11:05:00 AM EST Smoked Smoked Medical C enter Smoking 12/06/2019 Denies Ever completed Denies Ever [facility] 11:03:00 AM EST Smoked Smoked Medical C enter Smoking 12/06/2019 Denies Ever completed Denies Ever [facility] 10:46:00 AM EST Smoked Smoked Medical C enter Smoking 12/06/2019 Denies Ever completed Denies Ever [facility] 10:18:00 AM EST Smoked Smoked Medical C enter Smoking 10/29/2019 Denies Ever completed Denies Ever [facility] 07:32:00 PM EST Smoked Smoked Medical C enter Smoking 10/29/2019 Denies Ever completed Denies Ever [facility] 07:23:00 PM EST Smoked Smoked Medical C enter Smoking 09/26/2019 Denies Ever completed Denies Ever [facility] 02:25:00 AM EST Smoked Smoked Medical C enter Smoking 09/26/2019 Denies Ever completed Denies Ever [facility] 01:58:00 AM EST Smoked Smoked Medical C enter Smoking 09/26/2019 Denies Ever completed Denies Ever [facility] 01:09:00 AM EST Smoked Smoked Medical C enter Smoking 09/17/2019 Denies Ever completed Denies Ever [facility] 07:36:00 PM EST Smoked Smoked Medical C enter Smoking 09/17/2019 Denies Ever completed Denies Ever [facility] 05:15:00 PM EST Smoked Smoked Medical C enter Smoking 09/17/2019 Denies Ever completed Denies Ever [facility] 04:58:00 PM EST Smoked Smoked Medical C enter Smoking 09/17/2019 Denies Ever completed Denies Ever [facility] 04:20:00 PM EST Smoked Smoked Medical C enter Smoking 08/06/2019 Denies Ever completed Denies Ever [facility] 11:00:00 AM EDT Smoked Smoked Medical C enter Smoking 08/06/2019 Denies Ever completed Denies Ever [facility] 10:00:00 AM EDT Smoked Smoked Medical C enter Smoking 08/06/2019 Denies Ever completed Denies Ever [facility] 09:57:00 AM EDT Smoked Smoked Medical C enter Smoking 08/06/2019 Denies Ever completed Denies Ever [facility] 01:07:00 AM EDT Smoked Smoked Medical C enter Smoking 08/06/2019 Denies Ever completed Denies Ever [facility] 12:55:00 AM EDT Smoked Smoked Medical C enter Smoking 08/06/2019 Denies Ever completed Denies Ever [facility] 12:47:00 AM EDT Smoked Smoked Medical C enter Vital Signs ID Date Data Source UNK Name Value Range Interpretation Code Description Data Source(s) Oxygen saturation 96 % 96 % NEXTGEN ([facility] Arterial [facility] by Pulse oximetry Center) Body mass index 31.67 kg/m2 Overweight 31.67 kg/m2 [facility] ([facility] (BMI) [Ratio] [facility]) Respiratory rate 20 /min 20 /min [facility] ([facility]) Body temperature 37.94 Ronda 37.94 Ronda [facility] ([facility]) Heart rate 104 /min 104 /min [facility] ([facility]) Diastolic blood 65 mm[Hg] 65 mm[Hg] [facility] ( [facility]) Systolic blood 105 mm[Hg] 105 mm[Hg] [facility] ([facility]) Body weight 71.123 kg 71.123 kg [facility] ([facility]) Body height 149.86 cm 149.86 cm [facility] ([facility]) Oxygen saturation 97 % 97 % [facility] ([facility] Arterial [facility] by Pulse oximetry Center) Body mass index 31.71 kg/m2 Overweight 31.71 kg/m2 [facility]EXTGEN ([facility] (BMI) [Ratio] [facility]) Respiratory rate 20 /min 20 /min [facility] ([facility]) Body temperature 36.61 Ronda 36.61 Ronda [facility] ([facility]) Heart rate 100 /min 100 /min [facility] ([facility]) Diastolic blood 72 mm[Hg] 72 mm[Hg] [facility] ( [facility]) Systolic blood 114 mm[Hg] 114 mm[Hg] [facility] (S nt [facility]) Body weight 71.214 kg 71.214 kg [facility] ([facility]) Body height 149.86 cm 149.86 cm [facility] ([facility]) Oxygen saturation 100 % 100 % [facility] ([facility] in Arterial blood [facility] by Pulse oximetry Center) Body mass index 31.10 kg/m2 Overweight 31.10 kg/m2 NEXTGEN ([facility] (BMI) [Ratio] [facility]) Respiratory rate 18 /min 18 /min [facility] ([facility]) Body temperature 37.06 Ronda 37.06 Ronda [facility] ([facility]) Heart rate 98 /min 98 /min [facility] ([facility]) Diastolic blood 69 mm[Hg] 69 mm[Hg] [facility] ( [facility] pressure [facility]) Systolic blood 106 mm[Hg] 106 mm[Hg] [facility] (S aint [facility]) Body weight 69.853 kg 69.853 kg [facility] ([facility]) Body height 149.86 cm 149.86 cm [facility] ([facility]) Body temperature 36.831616 36.358478 Ronda [facility] Respiratory rate 17 /min 17 /min [facility] Oxygen saturation 100 % 100 % [facility] blood [facility] by Pulse oximetry Heart rate 76 /min 76 /min [facility] Diastolic blood 69 mm[Hg] 69 mm[Hg] [facility] Systolic blood 138 mm[Hg] 138 mm[Hg] [facility] Body temperature 36.658759 36.811685 Ronda [facility] Respiratory rate 18 /min 18 /min [facility] Oxygen saturation 98 % 98 % [facility] J osephs in Arterial blood [facility] by Pulse oximetry Heart rate 91 /min 91 /min [facility] Diastolic blood 75 mm[Hg] 75 mm[Hg] [facility] Systolic blood 128 mm[Hg] 128 mm[Hg] [facility] Body weight 157.135503 157.358539 kg [facility] Measured kg Medical Center Body temperature 37.059173 37.217092 Ronda [facility] Respiratory rate 18 /min 18 /min [facility] Oxygen saturation 98 % 98 % [facility] [place] [facility] in Arterial blood [facility] by Pulse oximetry Heart rate 62 /min 62 /min [facility] Body height 180.831017 180.590058 cm [facility] Diastolic blood 69 mm[Hg] 69 mm[Hg] [facility] pressure Medical Center Systolic blood 166 mm[Hg] 166 mm[Hg] [facility] Center Body mass index 48.2 kg/m2 48.2 kg/m2 [facility] (BMI) [Ratio] Medical [facility] Heart rate 101 /min 101 /min [facility] ([facility]) Oxygen saturation 100 % 100 % NEXTGEN ([facility] in Arterial blood [facility] by Pulse oximetry Center) Body mass index 31.51 kg/m2 Overweight 31.51 kg/m2 [facility] ([facility] (BMI) [Ratio] [facility]) Respiratory rate 20 /min 20 /min [facility] ([facility]) Body temperature 36.83 Ronda 36.83 Ronda [facility] ([facility]) Heart rate 107 /min 107 /min [facility] ([facility]) Diastolic blood 67 mm[Hg] 67 mm[Hg] [facility] ( [facility]) Systolic blood 108 mm[Hg] 108 mm[Hg] [facility] ([facility]) Body weight 70.760 kg 70.760 kg [facility] ([facility]) Body height 149.86 cm 149.86 cm [facility] ([facility]) Body mass index 30.90 kg/m2 Overweight 30.90 kg/m2 [facility] ([facility] (BMI) [Ratio] [facility]) Respiratory rate 17 /min 17 /min [facility] ([facility]) Body temperature 37.00 Ronda 37.00 Ronda [facility] ([facility]) Heart rate 89 /min 89 /min [facility] ([facility]) Diastolic blood 76 mm[Hg] 76 mm[Hg] [facility] ( [facility]) Systolic blood 120 mm[Hg] 120 mm[Hg] [facility] (S aint [facility]) Body weight 69.400 kg 69.400 kg [facility] Body height 149.86 cm 149.86 cm [facility] ([facility]) Oxygen saturation 99 % 99 % [facility] ([facility] in Arterial blood [facility] by Pulse oximetry Center) Body mass index 30.30 kg/m2 Overweight 30.30 kg/m2 NEXTGEN ([facility] (BMI) [Ratio] [facility]) Respiratory rate 20 /min 20 /min [facility] ([facility]) Body temperature 37.00 Ronda 37.00 Ronda [facility] ([facility]) Heart rate 72 /min 72 /min [facility] ([facility]) Diastolic blood 73 mm[Hg] 73 mm[Hg] [facility] ( [facility]) Systolic blood 127 mm[Hg] 127 mm[Hg] [facility] ([facility] Body weight 68.039 kg 68.039 kg [facility] ([facility]) Body height 149.86 cm 149.86 cm [facility] ([facility]) Body temperature 36.687561 36.337864 Ronda [facility] Respiratory rate 18 /min 18 /min [facility] Oxygen saturation 97 % 97 % [facility] by Pulse oximetry Heart rate 92 /min 92 /min [facility] Diastolic blood 78 mm[Hg] 78 mm[Hg] [facility] Systolic blood 120 mm[Hg] 120 mm[Hg] [facility] Body weight 70.882470 kg 70.635940 kg [facility] Body temperature 37.6535[address] 37[address]onda [facility] Respiratory rate 20 /min 20 /min [facility] Oxygen saturation 96 % 96 % [facility] by Pulse oximetry Heart rate 107 /min 107 /min [facility] Body height 152.390187 [address].8888[address] [facility] Diastolic blood 73 mm[Hg] 73 mm[Hg] [facility] Systolic blood 123 mm[Hg] 123 mm[Hg] [facility] Body mass index 30.1 kg/m2 30.1 kg/m2 [facility] (BMI) [Ratio] [facility] Oxygen saturation 94 % 94 % NEXTGEN ([facility] in Arterial blood [facility] by Pulse oximetry Center) Body mass index 30.70 kg/m2 Overweight 30.70 kg/m2 NEXTGEN ([facility] (BMI) [Ratio] [facility]) Respiratory rate 17 /min 17 /min [facility] ([facility]) Body temperature 36.17 Ronda 36.17 Ronda [facility] ([facility]) Heart rate 100 /min 100 /min [facility] ([facility]) Diastolic blood 67 mm[Hg] 67 mm[Hg] [facility] ( [facility] pressure [facility]) Systolic blood 111 mm[Hg] 111 mm[Hg] [facility] ([facility]) Body weight 68.946 kg 68.946 kg [facility] ([facility]) Body height 149.86 cm 149.86 cm [facility] ([facility]) Body temperature 36.929681 [id number] [facility] Respiratory rate 17 /min 17 /min [facility] Oxygen saturation 98 % 98 % [facility] blood [facility] by Pulse oximetry Heart rate 91 /min 91 /min [facility] Diastolic blood 78 mm[Hg] 78 mm[Hg] [facility] Systolic blood 140 mm[Hg] 140 mm[Hg] [facility] Body temperature 36.426699 36.243089 [facility] Respiratory rate 18 /min 18 /min [facility] Oxygen saturation 99 % 99 % [facility] Ar[facility] blood [facility] by Pulse oximetry Heart rate 81 /min 81 /min [facility] Diastolic blood 79 mm[Hg] 79 mm[Hg] [facility] Systolic blood 131 mm[Hg] 131 mm[Hg] [facility] Body temperature 36.068455 36.327652 [facility] Respiratory rate 19 /min 19 /min [facility] Oxygen saturation 98 % 98 % [facility] Ar[facility] blood [facility] by Pulse oximetry Heart rate 88 /min 88 /min [facility] Diastolic blood 69 mm[Hg] 69 mm[Hg] [facility] pressure [facility] Center Systolic blood 137 mm[Hg] 137 mm[Hg] [facility] Body weight 72.338723 kg 72.202091 kg [facility] Body temperature 36.420531 36.912765 [facility] Respiratory rate 20 /min 20 /min [facility] Oxygen saturation 99 % 99 % [facility] by Pulse oximetry Heart rate 115 /min 115 /min [facility] Diastolic blood 67 mm[Hg] 67 mm[Hg] [facility] Systolic blood 135 mm[Hg] 135 mm[Hg] [facility] Body temperature 36.420420 36.862145 [facility] Respiratory rate 18 /min 18 /min [facility] Oxygen saturation 98 % 98 % [facility] by Pulse oximetry Heart rate 80 /min 80 /min [facility] Diastolic blood 78 mm[Hg] 78 mm[Hg] [facility] Systolic blood 130 mm[Hg] 130 mm[Hg] [facility] Body temperature 37.383953 37.340375 [facility] Respiratory rate 18 /min 18 /min [facility] Oxygen saturation 97.2 % 97.2 % [facility] by Pulse oximetry Heart rate 86 /min 86 /min [facility] Diastolic blood 74 mm[Hg] 74 mm[Hg] [facility] Systolic blood 141 mm[Hg] 141 mm[Hg] [facility] Body temperature 37.069833 37.971343 [facility] Respiratory rate 18 /min 18 /min [facility] Oxygen saturation 98 % 98 % [facility] Arter[facility] blood [facility] by Pulse oximetry Heart rate 87 /min 87 /min [facility] Diastolic blood 68 mm[Hg] 68 mm[Hg] [facility] Systolic blood 105 mm[Hg] 105 mm[Hg] [facility] Body temperature 36.920771 36.414471 [facility] Respiratory rate 18 /min 18 /min [facility] Oxygen saturation 87 % 87 % [facility] Arterial blood [facility] by Pulse oximetry Heart rate 75 /min 75 /min [facility] Diastolic blood 80 mm[Hg] 80 mm[Hg] [facility] Systolic blood 140 mm[Hg] 140 mm[Hg] [facility] Body temperature 36.128934 36.549[address] [facility] Respiratory rate 19 /min 19 /min [facility] Oxygen saturation 98 % 98 % [facility] Arterial blood [facility] by Pulse oximetry Heart rate 106 /min 106 /min [facility] Diastolic blood 80 mm[Hg] 80 mm[Hg] [facility] Systolic blood 140 mm[Hg] 140 mm[Hg] [facility] Body temperature 36.736979 36.732461 [facility] Respiratory rate 18 /min 18 /min [facility] Oxygen saturation 99 % 99 % [facility] blood [facility] by Pulse oximetry Heart rate 84 /min 84 /min [facility] Diastolic blood 81 mm[Hg] 81 mm[Hg] [facility] Systolic blood 121 mm[Hg] 121 mm[Hg] [facility] Body temperature 36.478781 36.008898 [facility] Respiratory rate 18 /min 18 /min [facility] Oxygen saturation 99 % 99 % [facility] by Pulse oximetry Heart rate 91 /min 91 /min [facility] Diastolic blood 78 mm[Hg] 78 mm[Hg] [facility] Systolic blood 119 mm[Hg] 119 mm[Hg] [facility] Oxygen saturation 99 % 99 % [facility] ([facility] in Arterial [facility] by Pulse oximetry Center) Body mass index 31.02 kg/m2 Overweight 31.02 kg/m2 [facility] ([facility] (BMI) [Ratio] [facility]) Respiratory rate 20 /min 20 /min [facility] ([facility]) Body temperature 36.61 Ronda 36.61 Ronda [facility] ([facility]) Heart rate 98 /min 98 /min [facility] ([facility]) Diastolic blood 68 mm[Hg] 68 mm[Hg] [facility] ( [facility]) Systolic blood 113 mm[Hg] 113 mm[Hg] [facility] ([facility]) Body weight 69.672 kg 69.672 [facility] Body height 149.86 cm 149.86 cm [facility] Body temperature 37.00 Ornda 37.00 Ronda [facility]) Heart rate 80 /min 80 /min [facility]) Diastolic blood 77 mm[Hg] 77 mm[Hg] [facility] ( [facility]) Systolic blood 116 mm[Hg] 116 mm[Hg] [facility]) Body weight 73.028 kg 73.028 kg [facility]) Body height 149.86 cm 149.86 cm [facility] ([facility]) Oxygen saturation 96 % 96 % [facility] ([facility] in Arterial blood [facility] by Pulse oximetry Center) Body mass index 32.52 kg/m2 Overweight 32.52 kg/m2 [facility] ([facility] (BMI) [Ratio] [facility]) Respiratory rate 18 /min 18 /min [facility] ([facility]) Oxygen saturation 97 % 97 % [facility] ([facility] in Arterial [facility] by Pulse oximetry Center) Respiratory rate 24 /min 24 /min [facility] ([facility]) Body temperature 36.44 Ronda 36.44 Ronda [facility] ([facility]) Heart rate 100 /min 100 /min [facility] ([facility]) Diastolic blood 72 mm[Hg] 72 mm[Hg] [facility] ( [facility]) Systolic blood 117 mm[Hg] 117 mm[Hg] [facility]) Body height 149.86 cm 149.86 cm [facility] ([facility]) Patient Treatment Plan of Care Planned Activity Planned Date Details Description Data Source (s) Ciprofloxacin 3 MG/ML / 03/03/2020 NEXT [facility] ([facility] Dexamethasone 1 MG/ML Otic 12:00:00 AM [facility] Suspension [Ciprodex] Kimberly ) cetirizine hydrochloride 10 02/28/2020 [facility] ([facility] MG Oral Capsule [Zyrtec] 12:00:00 AM [facility]) Prednisone 20 MG Oral 02/28/2020 NEXTGE N ([facility] Tablet 12:00:00 AM [facility]) montelukast 10 MG Oral 02/28/2020 NEXTG EN ([facility] Tablet 12:00:00 AM [facility]) 120 ACTUAT Fluticasone 02/28/2020 NEXTG EN ([facility] propionate 0.22 MG/ACTUAT 12:00:00 AM [facility] Metered Dose Inhaler Kimberly) [Flovent] 200 ACTUAT Albuterol 0.09 02/28/2020 NE XTGEN ([facility] MG/ACTUAT Metered Dose 12:00:00 AM [facility] Inhaler [Ventolin] Kimberly) cetirizine hydrochloride 10 02/28/2020 [facility] ([facility] MG Oral Capsule [Zyrtec] 12:00:00 AM [facility]) Amoxicillin 875 MG / 01/23/2020 [facility] ([facility] Clavulanate 125 MG Oral 12:00:00 AM [facility] Medical Tablet [Augmentin] Kimberly) cetirizine hydrochloride 10 12/05/2019 [facility] ([facility] MG Oral Capsule [Zyrtec] 12:00:00 AM [facility]) Prednisone 20 MG Oral 12/05/2019 NEXTGE N ([facility] Tablet 12:00:00 AM [facility]) Amoxicillin 875 MG / 11/01/2019 [facility] ([facility] Clavulanate 125 MG Oral 12:00:00 AM [facility] Medical Tablet [Augmentin] Kimberly) Diphenhydramine 10/05/2019 NEXTGEN ([facility] nt Hydrochloride 25 MG Oral 12:00:00 AM [facility] Capsule [Benadryl] Kimberly) Loratadine 10 MG 10/05/2019 [facility]EXTGEN (Sa int Disintegrating Oral Tablet 12:00:00 AM [facility]) Medrol (Marco A) 4 mg tablets 10/05/2019 NE XTGEN ([facility] in a dose pack 12:00:00 AM Health system) Sulfamethoxazole 800 MG / 10/05/2019 NE XTGEN ([facility] Trimethoprim 160 MG Oral 12:00:00 AM [facility] Medical Tablet [Bactrim] Center) halobetasol propionate 07/18/2019 NEXTG EN ([facility] 0.0005 MG/MG Topical 12:00:[address] [facility] Ointment Center) Calcium Carbonate 1250 MG / 07/03/2019 [facility]EXTGEN ([facility] Cholecalciferol 0.01 MG 12:00:[address] [facility] Oral Tablet Center) Cefuroxime 500 MG Oral 06/27/2019 NEXTG EN ([facility] Tablet 12:00:00 AM [facility]) 120 ACTUAT Fluticasone 06/04/2019 NEXTG EN ([facility] propionate 0.22 MG/ACTUAT 12:00:00 AM [facility] Metered Dose Inhaler Center) [Flovent] Ibuprofen 400 MG Oral 06/04/2019 NEXTGE N ([facility] Tablet 12:00:00 AM [facility]) Meclizine Hydrochloride 25 05/31/2019 N EXTGEN ([facility] montelukast 10 MG Oral 12/18/2018 NEXTG EN ([facility] Tablet 12:00:00 AM [facility]) 200 ACTUAT Albuterol 0.09 10/30/2018 NE XTGEN ([facility] MG/ACTUAT Metered Dose 12:00:00 AM [facility] Medical Inhaler [Ventolin] Center)
--- NOTE | 2020-08-29 21:07 | PDOC ---
Attending Attestation - Resident Resident Name: ConnorRainerOliver - ED Attending Attestation I have performed the following: I have examined & evaluated the patient, The case was reviewed & discussed with the resident, I agree w/resident's findings & plan - HPI HPI: 08/29/20 21:06 54 y/o F with hx of asthma and several allergic reactions presenting with cough, SOB, wheezing x 3 days. Per patient she has been coughing + greenish sputum since three days, no blood in sputum. She had some back pain yesterday which has since resolved after taking ibuprofen and tylenol. She reports that her chest pain is reproducible to palpation. She mentions that she occasionally takes albuterol at home. She denies fever, chills, N/V/D, recent sick contacts, recent travel. 08/29/20 22:14 08/29/20 22:25 - Physicial Exam PE: 08/29/20 21:06 Agree with the resident's HPI and PE as documented in the electronic medical record. Awake and alert, well-appearing otherwise, EOMI, PERRL, nl conjunctiva, anicteric; neck supple. Bilateral wheezing diffusely, RRR, abdomen soft nontender. no rebound, guarding. Back nontender. DUVALL x4, no focal neuro deficits. No peripheral edema. normal color for ethnicity, WWP. - Medical Decision Making 08/29/20 21:07 Vital Signs Temp Pulse Resp BP Pulse Ox 98 F 93 H 20 126/78 100 08/29/20 20:41 08/29/20 20:41 08/29/20 20:41 08/29/20 20:41 08/29/20 20:41 Vitals reviewed no fevers, reassuring. Normal heart rate, normal saturations, hemodynamically appropriate clinically doubt PE, or cardiac etiology Differential diagnosis includes asthma exacerbation, viral syndrome, URI, allergic reaction, seasonal allergies No chest pain to suggest cardiac etiology We will get EKG, chest x-ray, duo nebs x3 and prednisone and reassess. Patient does have multiple allergies including to pets, epinephrine, perfume, nuts and seafood 08/29/20 22:03 ekg is sinus rhythm, no acute ischemic findings cxr clear no acute chest pathology given duonebs x3, improved wheezing, normal sats, speaking full sentences. Pt to be discharged in stable condition. Patient and family made aware of clinical impression, treatment recommendations and disposition plan, return precautions discussed (including but not limited to new or persistent/worsening symptoms, pain, fevers, or signs of infection, chest pain, respiratory distress, inability to tolerate oral intake, dehydration, syncope, or neurologic changes). Follow up with PMD and/or specialist as recommended, follow up information provided, take medications as instructed for duration of time. continue with supportive care, avoid triggers and precipitants. All questions answered to patient's satisfaction and expressed understanding and comfort with this. At the time of discharge, the patient is alert, clinically improved, tolerating po and verbalizes understanding of instructions, satisfied with the care received and felt comfortable with the plan. Patient does not suffer from an acute life- threatening medical condition at this time and is safe for outpatient follow- up. Heart Score/ECG Review #1 ECG reviewed & interpreted by me at: 21:30 General ECG Interpretation: Sinus Rhythm, Normal Rate, Normal Intervals 08/29/20 21:52 EKG normal sinus rhythm 78 bpm, no interval abnormalities, narrow QRS, ST and T wave segments and morphology normal. Discharge - Discharge Information Problems reviewed: Yes Clinical Impression/Diagnosis: Asthma exacerbation Qualifiers: Asthma severity: unspecified severity Asthma persistence: unspecified Qualified Code(s): J45.901 - Unspecified asthma with (acute) exacerbation Condition: Improved Disposition: HOME - Additional Discharge Information Prescriptions: Prednisone [Prednisone 50 MG TABLETS] 50 mg PO DAILY 4 Days #4 tablet Albuterol 0.083% Nebulizer Amaya [Ventolin 0.083% Nebulizer Soln -] 100 amp NEB Q6H #100 amp - Follow up/Referral - Patient Discharge Instructions Patient Printed Discharge Instructions: Asthma -- Adult Additional Instructions: You were seen in the ER for SOB and chest pain. You mentioned that you have a history of asthma. You were given breathing treatments and steroids. You reported feeling better after receiving medications. Your xray and ekg were normal. 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 Please take one tablet of prednisone daily and you may use one dose of albuterol every 6 hours if needed. Please follow up with your primary care provider regarding your visit to the ER. WHAT YOU NEED TO KNOW: Asthma is a lung disease that makes breathing difficult. Chronic inflammation and reactions to triggers narrow the airways in the lungs. Asthma can become life-threatening if it is not managed. DISCHARGE INSTRUCTIONS: Call your local emergency number (911 in the [place]) if: You have severe shortness of breath. Your lips or nails turn blue or lake. The skin around your neck and ribs pulls in with each breath. You have shortness of breath, even after you take your short-term medicine as directed. Your peak flow numbers are in the red zone of your AAP. Call your doctor if: You run out of medicine before your next refill is due. Your symptoms get worse. You need to take more medicine than usual to control your symptoms. You have questions or concerns about your condition or care. - Post Discharge Activity
[2020-08-29] MEDS ORDERED: predniSONE 20 MG TABLET (UD) PO ONE (21:15)
--- NOTE | 2020-08-29 21:15 | PDOC ---
History of Present Illness - History of Present Illness Initial Comments: 54 YOF h/o asthma presents for CP and SOB since 3 days. Per patient she has been coughing + greenish sputum since three days, no blood in sputum. She had some back pain yesterday which has since resolved after taking ibuprofen and tylenol. She reports that her chest pain is reproducible to palpation. She mentions that she occasionally takes albuterol at home. She denies fever, chills, N/V/D, recent sick contacts, recent travel. ROS Constitutional: No Fever, No Chills ENT/Mouth: No Hearing Changes Eyes: No Vision Changes Cardiovascular: No Chest Pain, No SOB Respiratory: No Cough, No Sputum Gastrointestinal: No Nausea, No Vomiting, No Diarrhea, No Hematochezia, No Melena Genitourinary: No Dysuria, No Urinary Frequency, No Hematuria, No Urinary Incontinence Musculoskeletal: No Arthralgias, No Myalgias Neuro: No Weakness, No Numbness, No Headache, No Recent Falls <Oliver Ryan - Last Filed: 08/29/20 22:07> <Nata Killian - Last Filed: 08/30/20 16:55> - General Chief Complaint: Shortness of Breath Stated Complaint: SOB Time Seen by Provider: 08/29/20 20:51 Past History - Medical History Anemia: Yes Asthma: Yes Cancer: No Cardiac Disorders: Yes CVA: Yes (X2 right sided weakness/numbness) COPD: No CHF: No DVT: No Dementia: No Diabetes: No GI Disorders: No Disorders: No HTN: No Hypercholesterolemia: Yes Liver Disease: No Seizures: No Thyroid Disease: No - Surgical History Abdominal Surgery: No Appendectomy: No Cardiac Surgery: No Cholecystectomy: No Lung Surgery: No Neurologic Surgery: (left ear sx x3, hard of hearing/tonsilectomy) Orthopedic Surgery: No - Reproductive History Is Patient Now?: No - Immunization History Td Vaccination: Yes Immunization Up to Date: Yes - Psycho-Social/Smoking History Smoking Status: No Smoking History: Never smoked Have you smoked in the past 12 months: No Number of Cigarettes Smoked Daily: 0 Cigars Per Day: 0 <Oliver Ryan - Last Filed: 08/29/20 22:07> <Nata Killian - Last Filed: 08/30/20 16:55> - Medical History Allergies/Adverse Reactions: Allergies Allergy/AdvReac Type Severity Reaction Status Date / Time cat dander Allergy Intermediate Verified 08/29/20 20:43 epinephrine Allergy Verified 08/29/20 20:43 perfume Allergy Verified 08/29/20 20:43 pistachio nut Allergy Verified 08/29/20 20:43 seafood Allergy Uncoded 08/29/20 20:43 Home Medications: Ambulatory Orders Albuterol 0.083% Nebulizer Amaya [Ventolin 0.083% Nebulizer Soln -] 1 amp NEB BID 12/15/19 Albuterol Sulfate Inhaler - [Ventolin Hfa Inhaler -] 1 - 2 inh PO Q4H 12/15/19 Epinephrine [Epipen 2-Marco A] 0.3 mg IJ ASDIR #1 kit 12/15/19 Diphenhydramine [Benadryl 12.5 MG/5 ML Oral Solution -] 25 mg PO Q6H #20 ml 05/28/20 Famotidine [Pepcid -] 20 mg PO DAILY #7 tablet 05/28/20 predniSONE [Deltasone -] 40 mg PO DAILY #10 tablet 05/28/20 Diphenhydramine HCl [Benadryl -] 25 mg PO Q6H PRN #20 capsule 07/16/20 Famotidine [Pepcid] 20 mg PO DAILY #7 tablet 07/16/20 predniSONE [Deltasone -] 40 mg PO DAILY #8 tablet 07/16/20 Albuterol 0.083% Nebulizer Amaya [Ventolin 0.083% Nebulizer Soln -] 100 amp NEB Q6H #100 amp 08/29/20 Prednisone [Prednisone 50 MG TABLETS] 50 mg PO DAILY 4 Days #4 tablet 08/29/20 Review of Systems - Review of Systems Constitutional: No: Chills, Fever, Weakness HEENTM: No: Nose Congestion Respiratory: Yes: Cough, Shortness of Breath, Productive cough. No: Hemoptysis Cardiac (ROS): Yes: Chest Pain. No: Edema, Irregular Heart Rate, Lightheadedness, Palpitations, Syncope, Chest Tightness ABD/GI: No: Diarrhea, Nausea, Vomiting Musculoskeletal: No: Back Pain Integumentary: No: Bruising, Change in Color, Pallor Neurological: No: Headache, Numbness, Weakness Hematologic/Lymphatic: No: Anemia, Blood Clots, Easy Bleeding, Easy Bruising All Other Systems: Reviewed and Negative <Nata Killian - Last Filed: 08/30/20 16:55> *Physical Exam - Vital Signs Last Vital Signs Temp Pulse Resp BP Pulse Ox 98 F 93 H 20 126/78 100 08/29/20 20:41 08/29/20 20:41 08/29/20 20:41 08/29/20 20:41 08/29/20 20:41 - Physical Exam General Appearance: Yes: Nourished, Appropriately Dressed HEENT: positive: EOMI, HALEY, Normal ENT Inspection, Normal Voice, Symmetrical, TMs Normal, Pharynx Normal Neck: positive: Trachea midline, Normal Thyroid Respiratory/Chest: positive: Wheezing Cardiovascular: positive: Regular Rhythm, Regular Rate, S1, S2 Gastrointestinal/Abdominal: positive: Normal Bowel Sounds, Flat, Soft <Oliver Ryan - Last Filed: 08/29/20 22:07> - Vital Signs Last Vital Signs Temp Pulse Resp BP Pulse Ox 98.8 F 93 H 19 114/71 100 08/29/20 23:00 08/29/20 20:41 08/29/20 23:00 08/29/20 23:00 08/29/20 23:00 - Physical Exam Respiratory/Chest: positive: Wheezing. negative: Respiratory Distress, Accessory Muscle Use, Crackles Musculoskeletal: positive: Normal Inspection Extremity: positive: Normal Capillary Refill, Normal Inspection, Normal Range of Motion Integumentary: positive: Normal Color, Dry, Warm Neurologic: positive: Alert, Normal Mood/Affect, Normal Response <Nata Killian - Last Filed: 08/30/20 16:55> ED Treatment Course - Medications Given in the ED: ED Medications Discontinued Medications Generic Name Dose Route Start Last Admin Trade Name Freq PRN Reason Stop Dose Admin Albuterol/Ipratropium 1 amp 08/29/20 21:15 08/29/20 22:42 Duoneb - NEB 08/29/20 22:01 1 amp Q15M CLEMENCIA Administration Prednisone 60 mg 08/29/20 21:15 08/29/20 21:44 Deltasone - PO 08/29/20 21:16 60 mg ONCE ONE Administration <Nata Killian - Last Filed: 08/30/20 16:55> Medical Decision Making - Medical Decision Making 54 YOF h/o asthma with SOB and bilateral wheeze - vitals wnl - exam reveals wheeze on auscultation - will do CXR, duoneb, prednisone, ekg 08/29/20 22:09 - CXR unremarkable - patient reports feeling better after duoneb - will dc patient with albuterol and prednisone rx <Oliver Ryan - Last Filed: 08/29/20 22:07> Discharge - Discharge Information Problems reviewed: Yes - Admission No <Oliver Ryan - Last Filed: 08/29/20 22:07> <Maria DNata Nicole - Last Filed: 08/30/20 16:55> - Discharge Information Clinical Impression/Diagnosis: Asthma exacerbation Qualifiers: Asthma severity: unspecified severity Asthma persistence: unspecified Qualified Code(s): J45.901 - Unspecified asthma with (acute) exacerbation Condition: Improved Disposition: HOME - Additional Discharge Information Prescriptions: Prednisone [Prednisone 50 MG TABLETS] 50 mg PO DAILY 4 Days #4 tablet Albuterol 0.083% Nebulizer Amyaa [Ventolin 0.083% Nebulizer Soln -] 100 amp NEB Q6H #100 amp - Patient Discharge Instructions Patient Printed Discharge Instructions: Asthma -- Adult Additional Instructions: You were seen in the ER for SOB and chest pain. You mentioned that you have a history of asthma. You were given breathing treatments and steroids. You reported feeling better after receiving medications. Your xray and ekg were normal. 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 Please take one tablet of prednisone daily and you may use one dose of albuterol every 6 hours if needed. Please follow up with your primary care provider regarding your visit to the ER. WHAT YOU NEED TO KNOW: Asthma is a lung disease that makes breathing difficult. Chronic inflammation and reactions to triggers narrow the airways in the lungs. Asthma can become life-threatening if it is not managed. DISCHARGE INSTRUCTIONS: Call your local emergency number (911 in the [place]) if: You have severe shortness of breath. Your lips or nails turn blue or lake. The skin around your neck and ribs pulls in with each breath. You have shortness of breath, even after you take your short-term medicine as directed. Your peak flow numbers are in the red zone of your AAP. Call your doctor if: You run out of medicine before your next refill is due. Your symptoms get worse. You need to take more medicine than usual to control your symptoms. You have questions or concerns about your condition or care.
[2020-08-29] MEDS ORDERED: ALBUTEROL SO4 2.5/IPRATROPIUM 0.5 INH SOL 3 ML VIAL.NEB. NEB ONE (21:36)
[2020-08-29] MEDS ORDERED: predniSONE 20 MG TABLET (UD) ONE (21:36)
[2020-08-29] MEDS: ALBUTEROL SO4 2.5/IPRATROPIUM 0.5 INH SOL 3 ML VIAL.NEB. NEB SCH ×2 (21:44→22:42)
[2020-08-29 23:01] VITALS: BP 114/71; TEMP 98.8
--- NOTE | 2020-08-30 18:39 | EKG ---
Test Reason : Blood Pressure : / mmHG Vent. Rate : 078 BPM Atrial Rate : 078 BPM P-R Int : 154 ms QRS Dur : 076 ms QT Int : 372 ms P-R-T Axes : 044 017 041 degrees QTc Int : 424 ms NORMAL SINUS RHYTHM INFERIOR INFARCT , AGE UNDETERMINED CANNOT RULE OUT ANTERIOR INFARCT , AGE UNDETERMINED ABNORMAL ECG WHEN COMPARED WITH ECG OF 27-NOV-2019 10:35, NO SIGNIFICANT CHANGE WAS FOUND Confirmed by MD KASSIE, GOLDY ([id number]) on 08/30/2020 6:38:54 PM Referred By: Confirmed By:GOLDY FERNANDO MD
== END 2020-08-29 23:12 | disposition home or self-care (01) ==
LOC: JER 20:40
PROC: 3E0F7GC Introduction of Other Therapeutic Substance into Respiratory Tract, Via Natural or Artificial Opening (ICD-10-PCS; principal; 2020-08-29)
DX: J45.901 Unspecified asthma with (acute) exacerbation (principal)
CPT/HCPCS: 71046-TC-FY; 93005; 93010; 99284-25

== ENCOUNTER 2021-05-19 05:00 | Emergency (ER) | payer OTHER ==
[2021-05-19 05:40] VITALS: TEMP 98.1; BMI 33.7
[2021-05-19] MEDS ORDERED: ACETAMINOPHEN 325 MG TABLET (FP) PO ONE (05:53)
[2021-05-19] MEDS ORDERED: ACETAMINOPHEN 325 MG TABLET (FP) ONE (06:08)
[2021-05-19] MEDS ORDERED: LIDOCAINE 5% TOPICAL PATCH TP ONE (06:12)
[2021-05-19] MEDS ORDERED: LIDOCAINE 5% TOPICAL PATCH ONE (06:45)
[2021-05-19 06:56] LABS: CHLORIDE 109 mmol/L (98-107); SODIUM 143 mmol/L (136-145)
[2021-05-19 06:58] LABS: ALBUMIN 3.1 g/dl (3.4-5.0); ANION GAP 11 MMOL/L (8-16); BLOOD UREA NITROGEN 10.6 mg/dL (7-18); CALCIUM 8.4 mg/dL (8.5-10.1); CO2 23 mmol/L (21-32); LIPASE 127 U/L (73-393)
[2021-05-19 06:59] LABS: GLUCOSE,RANDOM 100 mg/dL (74-106)
[2021-05-19 07:01] LABS: CREATININE 0.7 mg/dL (0.55-1.3); SGOT/AST 36 U/L (15-37); SGPT/ALT 27 U/L (13-61)
[2021-05-19 07:03] LABS: BILIRUBIN,TOTAL 0.3 mg/dL (0.2-1); TOT PROT 6.5 g/dl (6.4-8.2)
[2021-05-19 07:04] LABS: ALK PHOS 84 U/L (45-117); LACTIC ACID 2.2 mmol/L (0.4-2.0)
[2021-05-19 07:06] LABS: N-TERMINAL BNP 32.5 pg/ml (5-125)
[2021-05-19 07:17] LABS: HEMATOCRIT 34.9 % (32.4-45.2); HEMOGLOBIN 11.5 GM/dL (10.7-15.3); MCH 29.2 pg (25.7-33.7); MCHC 32.9 g/dl (32.0-36.0); MEAN CELL VOLUME 88.7 fl (80-96); MEAN PLT VOLUME 9.7 fl (7.5-11.1); PLATELET COUNT 244 10^3/uL (134-434); RBC 3.94 M/mm3 (3.60-5.2); RDW 14.3 % (11.6-15.6); WHITE BLOOD COUNT 6.8 K/mm3 (4.0-10.0)
[2021-05-19] MEDS ORDERED: SODIUM CHLORIDE 0.9% 500 ML INFUS.BAG IV ONE (07:35)
[2021-05-19 08:47] LABS: PH,URINE 5.5 (5.0-8.0); URINE APPEARANCE Clear; URINE BILIRUBIN Negative (NEGATIVE); URINE COLOR Yellow; URINE GLUCOSE (UA) Negative (NEGATIVE); URINE KETONE Negative (NEGATIVE); URINE LEUK ESTERASE Negative (NEGATIVE); URINE NITRITE Negative (NEGATIVE); URINE PROTEIN Negative (NEGATIVE); URINE UROBILINOGEN 0.2 mg/dL (0.2-1.0)
[2021-05-19] MEDS ORDERED: METOCLOPRAMIDE HCL INJECTION 10 MG/2 ML VIAL IVPUSH ONE (10:10)
[2021-05-19] MEDS ORDERED: METOCLOPRAMIDE HCL INJECTION 10 MG/2 ML VIAL ONE (10:20)
[2021-05-19 11:05] VITALS: BP 116/82; PULSE 70
[2021-05-19] MEDS ORDERED: LIDOCAINE PATCH REMOVAL MC ONE (22:00)
== END 2021-05-19 11:00 | disposition home or self-care (01) ==
LOC: JER 05:00
PROC: 3E033GC Introduction of Other Therapeutic Substance into Peripheral Vein, Percutaneous Approach (ICD-10-PCS; principal; 2021-05-19)
DX: R10.84 Generalized abdominal pain (principal)
CPT/HCPCS: 36415; 71275-TC; 74174-TC; 80053; 81003; 82550; 82553; 83605; 83690; 83880; 84484; 85027; 87086; 93005; 93010; 99285-25; Q9967

== ENCOUNTER 2022-08-15 04:21 | Emergency (ER) | payer OTHER ==
[2022-08-15] MEDS ORDERED: FAMOTIDINE 20 MG/50 ML IVPB 20 MG/50 ML MG IVPB ONE ×3 (04:40→04:59)
[2022-08-15] MEDS ORDERED: methylPREDNISolone NA SUCC 125 MG/2 ML VIAL IVPUSH ONE (04:40)
[2022-08-15] MEDS ORDERED: methylPREDNISolone NA SUCC 125 MG/2 ML VIAL ONE ×2 (04:48→04:59)
[2022-08-15] MEDS ORDERED: SODIUM CHLORIDE 0.9% 500 ML INFUS.BAG IV ONE (04:49)
[2022-08-15 05:22] VITALS: BP 127/69; PULSE 88; RESP 20; TEMP 98.2; BMI 34.4
== END 2022-08-15 06:24 | disposition home or self-care (01) ==
LOC: JER 04:21
PROC: 3E033GC Introduction of Other Therapeutic Substance into Peripheral Vein, Percutaneous Approach (ICD-10-PCS; principal; 2022-08-15)
PROC: 3E033GC Introduction of Other Therapeutic Substance into Peripheral Vein, Percutaneous Approach (ICD-10-PCS; 2022-08-15)
PROC: 3E033GC Introduction of Other Therapeutic Substance into Peripheral Vein, Percutaneous Approach (ICD-10-PCS; 2022-08-15)
DX: T78.40XA Allergy, unspecified, initial encounter (principal)
CPT/HCPCS: 82962; 99284-25

== ENCOUNTER 2022-10-27 13:49 | Emergency (ER) | payer OTHER ==
[2022-10-27 14:17] VITALS: BP 105/60; PULSE 107; RESP 19; TEMP 98.2; BMI 34.5
[2022-10-27] MEDS ORDERED: DEXAMETHASONE SOD PHOSPHATE 10 MG/1 ML VIAL IM ONE (14:23)
[2022-10-27] MEDS ORDERED: ALBUTEROL SO4 2.5/IPRATROPIUM 0.5 INH SOL 3 ML VIAL.NEB. NEB SCH (14:30)
[2022-10-27] MEDS ORDERED: ALBUTEROL SO4 2.5/IPRATROPIUM 0.5 INH SOL 3 ML VIAL.NEB. NEB ONE (14:45)
[2022-10-27] MEDS ORDERED: DEXAMETHASONE SOD PHOSPHATE 10 MG/1 ML VIAL ONE (14:45)
== END 2022-10-27 16:24 | disposition home or self-care (01) ==
LOC: JER 13:49
PROC: 3E0F7GC Introduction of Other Therapeutic Substance into Respiratory Tract, Via Natural or Artificial Opening (ICD-10-PCS; principal; 2022-10-27)
PROC: 3E0233Z Introduction of Anti-inflammatory into Muscle, Percutaneous Approach (ICD-10-PCS; 2022-10-27)
DX: J09.X2 Influenza due to identified novel influenza A virus with other respiratory manifestations (principal); J45.909 Unspecified asthma, uncomplicated
CPT/HCPCS: 0241U-QW; 71046-TC-FY; 82962; 99284-25